=== PATIENT | female | born 1965 | race Two or more races ===

== ENCOUNTER 2016-11-14 05:58 | Inpatient (IN) | payer BC, OTHER ==
[2016-11-14] MEDS ORDERED: ALBUTEROL SULFATE 0.083% NEB 2.5 MG/3 ML AMPUL NEB ONE (06:03)
[2016-11-14] MEDS: ALBUTEROL SULFATE 0.083% NEB 2.5 MG/3 ML AMPUL NEB SCH ×2 (06:03→06:10)
[2016-11-14] MEDS ORDERED: IPRATROPIUM/ALBUTEROL 0.5-2.5 MG/3 ML AMPUL NEB ONE ×3 (06:03→07:44)
[2016-11-14] MEDS ORDERED: METHYLPREDNISOLONE INJ 125 MG/2 ML SDV ONE (06:07)
[2016-11-14] MEDS ORDERED: METHYLPREDNISOLONE INJ 125 MG/2 ML SDV IV ONE (06:17)
[2016-11-14] MEDS ORDERED: MAGNESIUM SULFATE/D5W 100 ML IV ONE ×2 (06:23→06:25)
[2016-11-14] MEDS ORDERED: NORMAL SALINE 1000 ML 1,000 ML IV ONE (06:23)
--- NOTE | 2016-11-14 06:23 | ER Document Report ---
ED Respiratory Problem - General Mode of Arrival: Ambulatory Information source: Patient TRAVEL OUTSIDE OF THE [place] IN LAST 30 DAYS: No - HPI Patient complains to provider of: Asthma Onset: Yesterday - ~2100 Duration: Continuous, Worse/persistent Context: Hx asthma Cough: Productive Sputum amount: Small Sputum color: Yellow At home treatment: Bronchodilators Associated symptoms: Cough, Difficulty breathing, Short of breath, Wheezing. denies: Fever <HELADIO WELLS - Last Filed: 11/14/16 06:23> <CHRISTOPHER FERGUSON - Last Filed: 11/14/16 07:48> - General Chief Complaint: Asthma Exacerbation Stated Complaint: DIFFICULTY BREATHING Notes: Patient is a 51-year-old female presenting to the emergency department with concerns of difficulty breathing associated with her asthma onset last night at approximately 2100. Patient states it started out with a cough, and she felt like she was coming down with a cold virus. Patient took over the counter cough medication at that point in time. Patient states the cough was productive with yellow phlegm, but denies any fever or other symptoms. Patient states that she takes albuterol through an inhaler as well as a nebulizer, and denies taking any other regular medications. (HELADIO WELLS) - Related Data Allergies/Adverse Reactions: No Known Allergies Allergy (Verified 11/14/16 06:08) Past Medical History - Social History Smoking Status: Unknown if Ever Smoked Family History: Reviewed & Not Pertinent, Other - asthma, Pulmonary Medical History: Reports: Hx Asthma Denies: Hx Tuberculosis Endocrine Medical History: Reports: Hx Hyperthyroidism Past Surgical History: Reports: Hx Abdominal Surgery - UMBILICAL HERNIA REPAIR, Hx Umbilical Hernia - Immunizations Immunizations up to date: Yes Hx Diphtheria, Pertussis, Tetanus Vaccination: Yes Hx Pneumococcal Vaccination: 03/25/14 <HELADIO WELLS - Last Filed: 11/14/16 06:23> Review of Systems - Review of Systems Constitutional: No symptoms reported EENT: No symptoms reported Cardiovascular: No symptoms reported Respiratory: See HPI, Cough, Short of breath, Wheezing Gastrointestinal: No symptoms reported Genitourinary: No symptoms reported Female Genitourinary: No symptoms reported Musculoskeletal: No symptoms reported Skin: No symptoms reported Hematologic/Lymphatic: No symptoms reported Neurological/Psychological: No symptoms reported -: Yes All other systems reviewed and negative <HELADIO WELLS - Last Filed: 11/14/16 06:23> Physical Exam - Vital signs Interpretation: Hypertensive, Tachycardic, Hypoxic, Tachypneic - General General appearance: Alert In distress: Moderate - HEENT Head: Normocephalic, Atraumatic Eyes: Normal Pupils: PERRL - Respiratory Respiratory status: Respiratory distress, Labored, Pursed lip breathing, Retractions, Tachypnea Chest status: Nontender Breath sounds: Wheezing - Diffuse expiratory wheezes - Cardiovascular Rhythm: Tachycardia Heart sounds: Normal auscultation Murmur: No - Abdominal Inspection: Normal Distension: No distension Bowel sounds: Normal Tenderness: Nontender Organomegaly: No organomegaly - Back Back: Normal, Nontender - Extremities General upper extremity: Normal inspection, Nontender General lower extremity: Normal inspection, Nontender - Neurological Neuro grossly intact: Yes Cognition: Normal [place] Coma Scale Eye Opening: Spontaneous [place] Coma Scale Verbal: Oriented [place] Coma Scale Motor: Obeys Commands Aimee Coma Scale Total: 15 - Psychological Associated symptoms: Normal affect, Normal mood - Skin Skin Temperature: Warm Skin Moisture: Dry Skin Color: Normal <HELADIO WELLS - Last Filed: 11/14/16 06:23> Course - Laboratory Result Diagrams: 11/14/16 06:14 11/14/16 06:14 - Diagnostic Test Radiology reviewed: Image reviewed, Reports reviewed - NAD - Consults Dr. Shankar Time consulted: 07:45 Consulted provider: will come to ER <CHRISTOPHER FERGUSON - Last Filed: 11/14/16 07:48> - Vital Signs Vital signs: Temp Pulse Resp BP Pulse Ox 131 H 19 149/93 H 97 11/14/16 05:59 11/14/16 06:23 11/14/16 06:23 11/14/16 06:23 (HELADIO WELLS) (CHRISTOPHER FERGUSON) - Laboratory Laboratory results interpreted by me: 11/14/16 06:14 Sodium 145.7 H Chloride 109 H (CHRISTOPHER FERGUSON) Discharge <HELADIO WELLS - Last Filed: 11/14/16 06:23> - Discharge Admitting Provider: Hospitalist Unit Admitted: Telemetry <CHRISTOPHER FERGUSON - Last Filed: 11/14/16 07:48> - Discharge Clinical Impression: Asthmatic bronchitis Qualifiers: Asthma severity: severe persistent Asthma complication type: with status asthmaticus Qualified Code(s): J45.52 - Severe persistent asthma with status asthmaticus Condition: Good Disposition: ADMITTED INPATIENT Scribe Documentation - Scribe Written by Scribe:: Heladio Wells 11/14/2016 0623 acting as scribe for :: Nickolas <HELADIO WELLS - Last Filed: 11/14/16 06:23>
[2016-11-14] MEDS ORDERED: RACEPINEPHRINE HCL 2.25% NEB 0.5 ML AMPUL NEB ONE (06:24)
[2016-11-14 06:28] LABS: ABSOLUTE EOSINOPHILS # (AUTO) 0.1 10^3/uL (0.0-0.6); ABSOLUTE LYMPHOCYTES (AUTO) 1.8 10^3/uL (0.5-4.7); ABSOLUTE MONOCYTES (AUTO) 0.5 10^3/uL (0.1-1.4); ABSOLUTE NEUT (AUTO) 6.9 10^3/uL (1.7-8.2); BASOPHILS % (AUTO) 0.2 % (0-2); EOSINOPHILS % (AUTO) 1.5 % (0-6); HEMOGLOBIN 14.1 g/dL (12.0-15.5); HGB HCT DIFFERENCE -0.7; LYMPHOCYTES % (AUTO) 18.9 % (13-45); MEAN CORPUSCULAR HEMOGLOBIN 31.6 pg (27.0-33.4); MEAN CORPUSCULAR HGB CONC 32.8 g/dL (32.0-36.0); MEAN CORPUSCULAR VOLUME 96 fl (80-97); MONOCYTES % (AUTO) 4.9 % (3-13); RED BLOOD COUNT 4.47 10^6/uL (3.72-5.28); RED CELL DISTRIBUTION WIDTH 13.2 % (11.5-14.0); SEGMENTED NEUTROPHILS % (AUTO) 74.5 % (42-78); WHITE BLOOD COUNT 9.3 10^3/uL (4.0-10.5)
[2016-11-14 06:43] LABS: ALANINE AMINOTRANSFERASE 21 U/L (9-52); ALBUMIN 4.5 g/dL (3.5-5.0); ALKALINE PHOSPHATASE 84 U/L (38-126); ANION GAP 12 (5-19); ASPARTATE AMINO TRANSFERASE 27 U/L (14-36); BILIRUBIN,TOTAL 0.5 mg/dL (0.2-1.3); BLOOD UREA NITROGEN 12 mg/dL (7-20); CALCIUM 9.1 mg/dL (8.4-10.2); CARBON DIOXIDE 25 mmol/L (22-30); CHLORIDE 109 mmol/L (98-107); CREATININE RESULT 0.54 mg/dL (0.52-1.25); GLUCOSE 101 mg/dL (75-110); POTASSIUM 4.1 mmol/L (3.6-5.0); SODIUM 145.7 mmol/L (137-145); TOTAL PROTEIN 7.3 g/dL (6.3-8.2)
[2016-11-14] MEDS ORDERED: ACETAMINOPHEN 325 MG TABLET PO PRN (07:51)
[2016-11-14] MEDS: NORMAL SALINE 1000 ML 1,000 ML IV PRN ×2 (08:33→17:21)
[2016-11-14] MEDS: IPRATROPIUM/ALBUTEROL 0.5-2.5 MG/3 ML AMPUL NEB SCH ×4 (08:54→20:09)
[2016-11-14] MEDS: GUAIFENESIN 600 MG TABLET.SA PO SCH ×2 (09:58→23:10)
[2016-11-14] MEDS: FAMOTIDINE 20 MG TABLET PO SCH ×2 (09:59→23:10)
[2016-11-14] MEDS ORDERED: BECLOMETHASONE DIPROPIONATE IH SCH (10:00)
[2016-11-14] MEDS: LEVOFLOXACIN 750 MG/D5W RTU 150 ML IV SCH (10:03)
[2016-11-14] MEDS: METHYLPREDNISOLONE INJ 125 MG/2 ML SDV IV SCH ×3 (11:10→23:14)
[2016-11-14] MEDS ORDERED: INFLUENZA ADLT QUAD (36MOS+) 2016-17 VAC 0.5 ML SYR IM PRN (13:49)
--- NOTE | 2016-11-14 14:05 | PDOC H&P ---
History of Present Illness Admission Date/PCP: 11/14/16 07:51 Patient complains of: Shortness of breath and wheezing History of Present Illness: JAROD MOON is a 51 year old female with history of moderate persistent asthma, who presented on [facility]'s ED earlier this morning with increasing shortness of breath, cough and severe wheezing. Patient states she began coughing last evening around 9 PM, which was accompanied by worsening wheezing and body aches. Patient states she used her rescue inhaler several times without improvement. Patient states she still took Mucinex and Robitussin cough syrup prior to going to bed last night. She states she thought she was coming down with an upper respiratory infection. She was awakened at 3 am by increasing shortness of breath, dyspnea and severe wheezing. She therefore drove herself to the ER. She states she has been using her inhaler and singulair as directed. Her daughter has recently gotten a cat. Past Medical History Medical History: None Pulmonary Medical History: Reports: Asthma Denies: Tuberculosis EENT Medical History: Reports: Other - asthma Neurological Medical History: Reports: None Endocrine Medical History: Reports: Hyperthyroidism Malignancy Medical History: Reports: None GI Medical History: Reports: None Skin Medical History: Reports: None Psychiatric Medical History: Reports: None Denies: Depression Traumatic Medical History: Reports: None Hematology: Reports: None Infectious Medical History: Reports: None Social History Information Source: Patient Lives with: Family Smoking Status: Never Smoker Frequency of Alcohol Use: Social Hx Recreational Drug Use: No Hx Prescription Drug Abuse: No - Advance Directive Resuscitation Status: Full Code Family History Family History: Hypertension, Other - asthma, Parental Family History Reviewed: Yes Children Family History Reviewed: Yes Sibling(s) Family History Reviewed.: Yes Medication/Allergy Home Medications: Albuterol Sulfate [Ventolin Hfa] 2 puff IN Q4HP PRN 11/05/15 Montelukast Sodium 10 mg PO QHS #30 tablet 11/07/15 Albuterol Sulfate [Albuterol Sulfate 2.5mg/3 mL] 2.5 mg IH DAILY 11/14/16 Allergies/Adverse Reactions: No Known Allergies Allergy (Verified 11/14/16 06:08) Review of Systems Constitutional: ABSENT: chills, fever(s), headache(s), weight gain, weight loss Eyes: ABSENT: visual disturbances Ears: ABSENT: hearing changes Cardiovascular: ABSENT: chest pain, dyspnea on exertion, edema, orthropnea, palpitations Respiratory: PRESENT: cough, dyspnea, other - severe wheezing Gastrointestinal: ABSENT: abdominal pain, constipation, diarrhea, hematemesis, hematochezia, nausea, vomiting Genitourinary: ABSENT: dysuria, hematuria Musculoskeletal: ABSENT: joint swelling Integumentary: ABSENT: rash, wounds Neurological: ABSENT: abnormal gait, abnormal speech, confusion, dizziness, focal weakness, syncope Psychiatric: ABSENT: anxiety, depression, homidical ideation, suicidal ideation Endocrine: ABSENT: cold intolerance, heat intolerance, polydipsia, polyuria Hematologic/Lymphatic: ABSENT: easy bleeding, easy bruising Physical Exam Vital Signs: Temp Pulse Resp BP Pulse Ox 97.8 F 98 20 120/71 96 11/14/16 12:39 11/14/16 13:00 11/14/16 13:00 11/14/16 12:39 11/14/16 13:00 General appearance: PRESENT: no acute distress, well-developed, well-nourished Head exam: PRESENT: atraumatic, normocephalic Eye exam: PRESENT: conjunctiva pink, EOMI, PERRLA. ABSENT: scleral icterus Ear exam: PRESENT: normal external ear exam Mouth exam: PRESENT: moist, tongue midline Neck exam: ABSENT: carotid bruit, JVD, lymphadenopathy, thyromegaly Respiratory exam: PRESENT: prolonged expiratory phas, symmetrical, unlabored, wheezes Cardiovascular exam: PRESENT: RRR. ABSENT: diastolic murmur, rubs, systolic murmur Pulses: PRESENT: normal dorsalis pedis pul Vascular exam: PRESENT: normal capillary refill GI/Abdominal exam: PRESENT: normal bowel sounds, soft. ABSENT: distended, guarding, mass, organolmegaly, rebound, tenderness Rectal exam: PRESENT: deferred Extremities exam: PRESENT: full ROM. ABSENT: calf tenderness, clubbing, pedal edema Neurological exam: PRESENT: alert, awake, oriented to person, oriented to place , oriented to time, oriented to situation, CN II-XII grossly intact. ABSENT: motor sensory deficit Psychiatric exam: PRESENT: appropriate affect, normal mood. ABSENT: homicidal ideation, suicidal ideation Skin exam: PRESENT: dry, intact, warm. ABSENT: cyanosis, rash Results Impressions: Chest X-Ray 01/20/17 06:17 IMPRESSION: NO ACUTE RADIOGRAPHIC FINDING IN THE CHEST. Assessment & Plan - Diagnosis (1) Asthma exacerbation Is this a current diagnosis for this admission?: YesPlan: IV steroids, nebulizers and IV magnesium. (2) Seasonal allergies Qualifiers: Allergic rhinitis trigger: unspecified Qualified Code(s): J30.2 - Other seasonal allergic rhinitis Is this a current diagnosis for this admission?: YesPlan: Continue Singulair (3) Acute bronchitis due to Rhinovirus Is this a current diagnosis for this admission?: YesPlan: Continue nebulizers, IV steroids and mucinex - Time Time Spent: 50 to 70 Minutes Critical Time spent with patient: 25-34 minutes Medications reviewed and adjusted accordingly: Yes Anticipated discharge: Home
[2016-11-14 14:13] LABS: ARTERIAL BLOOD BASE EXCESS -2.1 mmol/L
[2016-11-14] MEDS ORDERED: BUDESONIDE NEB 0.5 MG/2 ML AMPUL NEB PRN (17:24)
[2016-11-14] MEDS: BUDESONIDE NEB 0.5 MG/2 ML AMPUL NEB SCH (20:08)
[2016-11-14] MEDS: MONTELUKAST SODIUM 10 MG TABLET PO SCH (23:10)
[2016-11-15] MEDS: IPRATROPIUM/ALBUTEROL 0.5-2.5 MG/3 ML AMPUL NEB PRN (04:02)
[2016-11-15 04:57] LABS: HEMATOCRIT 39.5 % (36.0-47.0); HEMOGLOBIN 12.6 g/dL (12.0-15.5); HGB HCT DIFFERENCE -1.7; MEAN CORPUSCULAR HEMOGLOBIN 30.9 pg (27.0-33.4); MEAN CORPUSCULAR HGB CONC 31.9 g/dL (32.0-36.0); MEAN CORPUSCULAR VOLUME 97 fl (80-97); RED BLOOD COUNT 4.07 10^6/uL (3.72-5.28); RED CELL DISTRIBUTION WIDTH 13.7 % (11.5-14.0); WHITE BLOOD COUNT 14.4 10^3/uL (4.0-10.5)
[2016-11-15 05:14] LABS: ALANINE AMINOTRANSFERASE 21 U/L (9-52); ALKALINE PHOSPHATASE 74 U/L (38-126); ANION GAP 12 (5-19); ASPARTATE AMINO TRANSFERASE 19 U/L (14-36); BILIRUBIN,TOTAL 0.4 mg/dL (0.2-1.3); BLOOD UREA NITROGEN 9 mg/dL (7-20); CALCIUM 9.1 mg/dL (8.4-10.2); CARBON DIOXIDE 21 mmol/L (22-30); CHLORIDE 109 mmol/L (98-107); CREATININE RESULT 0.45 mg/dL (0.52-1.25); GLUCOSE 151 mg/dL (75-110); POTASSIUM 4.4 mmol/L (3.6-5.0); SODIUM 141.6 mmol/L (137-145); TOTAL PROTEIN 6.7 g/dL (6.3-8.2)
[2016-11-15] MEDS: METHYLPREDNISOLONE INJ 125 MG/2 ML SDV IV SCH ×4 (05:44→23:11)
[2016-11-15] MEDS: NORMAL SALINE 1000 ML 1,000 ML IV PRN (05:46)
[2016-11-15] MEDS: IPRATROPIUM/ALBUTEROL 0.5-2.5 MG/3 ML AMPUL NEB SCH ×4 (07:57→20:38)
[2016-11-15] MEDS: BUDESONIDE NEB 0.5 MG/2 ML AMPUL NEB SCH ×2 (07:57→20:38)
[2016-11-15] MEDS ORDERED: METHIMAZOLE PO SCH (10:00)
[2016-11-15] MEDS: LEVOFLOXACIN 750 MG/D5W RTU 150 ML IV SCH (10:10)
[2016-11-15] MEDS: GUAIFENESIN 600 MG TABLET.SA PO SCH ×2 (10:11→21:16)
[2016-11-15] MEDS: FAMOTIDINE 20 MG TABLET PO SCH ×2 (10:11→21:17)
[2016-11-15] MEDS: MONTELUKAST SODIUM 10 MG TABLET PO SCH (21:16)
[2016-11-16] MEDS: IPRATROPIUM/ALBUTEROL 0.5-2.5 MG/3 ML AMPUL NEB PRN (04:14)
[2016-11-16] MEDS: METHYLPREDNISOLONE INJ 125 MG/2 ML SDV IV SCH ×4 (05:18→23:47)
[2016-11-16] MEDS: BUDESONIDE NEB 0.5 MG/2 ML AMPUL NEB SCH ×2 (08:35→20:32)
[2016-11-16] MEDS: IPRATROPIUM/ALBUTEROL 0.5-2.5 MG/3 ML AMPUL NEB SCH ×4 (08:35→20:32)
[2016-11-16] MEDS ORDERED: HYDROCODONE BIT/HOMATROPINE SYRUP 5 ML UDCUP PO PRN (09:16)
[2016-11-16] MEDS: GUAIFENESIN 600 MG TABLET.SA PO SCH ×2 (09:16→21:30)
[2016-11-16] MEDS: FAMOTIDINE 20 MG TABLET PO SCH ×2 (09:16→21:30)
[2016-11-16] MEDS: LEVOFLOXACIN 750 MG/D5W RTU 150 ML IV SCH (09:17)
--- NOTE | 2016-11-16 10:35 | PDOC PROGRESS REPORT ---
Subjective Progress Note for:: 11/15/16 Subjective:: Patient is seen on morning rounds. She is resting in bed. She continues to have cough and significant wheezing, but is improved from admission. She denies any headache, dizziness or dyspnea. She denies any nausea, vomiting or abdominal pain. She denies any arthralgias, myalgias or back pain. She denies any fevers or chills. Physical Exam Vital Signs: Temp Pulse Resp BP Pulse Ox 98.3 F 71 18 110/51 L 95 11/16/16 07:38 11/16/16 08:35 11/16/16 08:35 11/16/16 07:38 11/16/16 08:35 Intake & Output 11/15/16 11/16/16 11/17/16 06:59 06:59 06:59 Intake Total 2863 4750 Output Total 2300 Balance 2863 2450 Weight 84.5 kg 86.3 kg General appearance: PRESENT: no acute distress, well-developed, well-nourished Head exam: PRESENT: atraumatic, normocephalic Eye exam: PRESENT: conjunctival injection Ear exam: PRESENT: normal external ear exam Mouth exam: PRESENT: moist, tongue midline Respiratory exam: PRESENT: prolonged expiratory phas, symmetrical, unlabored, wheezes Cardiovascular exam: PRESENT: RRR. ABSENT: diastolic murmur, rubs, systolic murmur Pulses: PRESENT: normal dorsalis pedis pul Vascular exam: PRESENT: normal capillary refill GI/Abdominal exam: PRESENT: normal bowel sounds, soft. ABSENT: distended, guarding, mass, organolmegaly, rebound, tenderness Rectal exam: PRESENT: deferred Extremities exam: PRESENT: full ROM. ABSENT: calf tenderness, clubbing, pedal edema Neurological exam: PRESENT: alert, awake, oriented to person, oriented to place , oriented to time, oriented to situation, CN II-XII grossly intact. ABSENT: motor sensory deficit Psychiatric exam: PRESENT: appropriate affect, normal mood. ABSENT: homicidal ideation, suicidal ideation Skin exam: PRESENT: dry, intact, warm. ABSENT: cyanosis, rash Results Laboratory Results: 11/15/16 04:39 11/15/16 04:39 Impressions: Chest X-Ray 11/14/16 06:17 IMPRESSION: NO ACUTE RADIOGRAPHIC FINDING IN THE CHEST. Assessment & Plan - Diagnosis (1) Asthma exacerbation Is this a current diagnosis for this admission?: YesPlan: IV steroids, nebulizers and IV magnesium. (2) Seasonal allergies Qualifiers: Allergic rhinitis trigger: unspecified Qualified Code(s): J30.2 - Other seasonal allergic rhinitis Is this a current diagnosis for this admission?: YesPlan: Continue Singulair (3) Acute bronchitis due to Rhinovirus Is this a current diagnosis for this admission?: YesPlan: Continue nebulizers, IV steroids and mucinex - Time Time Spent with patient: 25-34 minutes Critical Time spent with patient: 15-24 minutes Medications reviewed and adjusted accordingly: Yes Anticipated discharge: Home
--- NOTE | 2016-11-16 10:38 | PDOC PROGRESS REPORT ---
Subjective Progress Note for:: 11/16/16 Subjective:: Patient is seen on morning rounds. She is resting in bed. She continues to have a mostly nonproductive cough, wheezing has improved and chest is not as tight. She denies any headache, dizziness or dyspnea. She denies any nausea, vomiting or abdominal pain. She denies any arthralgias, myalgias or back pain. She denies any fevers or chills. Physical Exam Vital Signs: Temp Pulse Resp BP Pulse Ox 98.3 F 71 18 110/51 L 95 11/16/16 07:38 11/16/16 08:35 11/16/16 08:35 11/16/16 07:38 11/16/16 08:35 Intake & Output 11/15/16 11/16/16 11/17/16 06:59 06:59 06:59 Intake Total 2863 4750 Output Total 2300 Balance 2863 2450 Weight 84.5 kg 86.3 kg General appearance: PRESENT: no acute distress, well-developed, well-nourished Head exam: PRESENT: atraumatic, normocephalic Eye exam: PRESENT: conjunctiva pink, EOMI, PERRLA. ABSENT: scleral icterus Ear exam: PRESENT: normal external ear exam Mouth exam: PRESENT: moist, tongue midline Neck exam: ABSENT: carotid bruit, JVD, lymphadenopathy, thyromegaly Respiratory exam: PRESENT: symmetrical, unlabored - Improved aeration, wheezes, other. ABSENT: rales, rhonchi Cardiovascular exam: PRESENT: RRR. ABSENT: diastolic murmur, rubs, systolic murmur Pulses: PRESENT: normal dorsalis pedis pul Vascular exam: PRESENT: normal capillary refill GI/Abdominal exam: PRESENT: normal bowel sounds, soft. ABSENT: distended, guarding, mass, organolmegaly, rebound, tenderness Rectal exam: PRESENT: deferred Extremities exam: PRESENT: full ROM. ABSENT: calf tenderness, clubbing, pedal edema Neurological exam: PRESENT: alert, awake, oriented to person, oriented to place , oriented to time, oriented to situation, CN II-XII grossly intact. ABSENT: motor sensory deficit Psychiatric exam: PRESENT: appropriate affect, normal mood. ABSENT: homicidal ideation, suicidal ideation Skin exam: PRESENT: dry, intact, warm. ABSENT: cyanosis, rash Results Laboratory Results: 11/15/16 04:39 11/15/16 04:39 Impressions: Chest X-Ray 11/14/16 06:17 IMPRESSION: NO ACUTE RADIOGRAPHIC FINDING IN THE CHEST. Assessment & Plan - Diagnosis (1) Asthma exacerbation Is this a current diagnosis for this admission?: YesPlan: IV steroids, nebulizers and IV magnesium. (2) Seasonal allergies Qualifiers: Allergic rhinitis trigger: unspecified Qualified Code(s): J30.2 - Other seasonal allergic rhinitis Is this a current diagnosis for this admission?: YesPlan: Continue Singulair (3) Acute bronchitis due to Rhinovirus Is this a current diagnosis for this admission?: YesPlan: Continue nebulizers, IV steroids and mucinex - Time Time Spent with patient: 15-24 minutes Medications reviewed and adjusted accordingly: Yes Anticipated discharge: Home
[2016-11-16] MEDS ORDERED: HYDROCODONE BIT/HOMATROPINE 5-1.5 MG TABLET PO PRN (11:28)
[2016-11-16] MEDS: MONTELUKAST SODIUM 10 MG TABLET PO SCH (21:30)
[2016-11-17] MEDS: METHYLPREDNISOLONE INJ 125 MG/2 ML SDV IV SCH (05:39)
[2016-11-17] MEDS: IPRATROPIUM/ALBUTEROL 0.5-2.5 MG/3 ML AMPUL NEB SCH ×2 (08:37→12:57)
[2016-11-17] MEDS: BUDESONIDE NEB 0.5 MG/2 ML AMPUL NEB SCH (08:37)
[2016-11-17] MEDS ORDERED: BUDESONIDE/FORMOTEROL 160-4.5 MCG 60 PUFF/6 GM MDI IH SCH (10:00)
[2016-11-17] MEDS ORDERED: PREDNISONE 20 MG TABLET PO SCH (10:00)
[2016-11-17] MEDS: LEVOFLOXACIN 750 MG/D5W RTU 150 ML IV SCH (10:19)
[2016-11-17] MEDS: FAMOTIDINE 20 MG TABLET PO SCH (10:21)
[2016-11-17] MEDS: GUAIFENESIN 600 MG TABLET.SA PO SCH (10:21)
[2016-11-17 12:51] VITALS: BP 113/59
--- NOTE | 2016-11-17 13:54 | PDOC DISCHARGE SUMMARY ---
General - Admit/Disc Date/PCP Admission Date/Primary Care Provider: 11/14/16 07:51 Discharge Date: 11/17/16 - Discharge Diagnosis (1) Asthma exacerbation Is this a current diagnosis for this admission?: YesSummary: Patient will continue with steroid inhaler bid. Oral prednisone taper. Continue Singulair. Levaquin for 5 more days (2) Seasonal allergies Is this a current diagnosis for this admission?: YesSummary: Continue Singulair and Zyrtec. Avoid cat dander (3) Asthmatic bronchitis Is this a current diagnosis for this admission?: YesSummary: Patient's symptoms are markedly improved. Wheezing mostly has resolved - Additional Information Resuscitation Status: Full Code Discharge Diet: Regular Discharge Activity: Activity As Tolerated, Balance Activity w/Rest Home Medications: Albuterol Sulfate [Ventolin Hfa] 2 puff IN Q4HP PRN 11/05/15 Montelukast Sodium 10 mg PO QHS #30 tablet 11/07/15 Acetaminophen [Tylenol 325 mg Tablet] 650 mg PO Q4HP PRN tablet 11/17/16 Albuterol Sulfate [Albuterol Sulfate 2.5mg/3 mL] 2.5 mg IH DAILY #30 vial Budesonide/Formoterol Fumarate [Symbicort HFA 160-4.5 mcg Inhaler 6 gm] 2 puff IH Q12 #1 inhaler 11/17/16 Hydrocodone Bit/Homatropine [Hycodan 5-1.5 mg Tablet] 1 tab PO Q4HP PRN #20 tablet 11/17/16 Prednisone [Deltasone 20 mg Tablet] 20 mg PO ASDIR PRN #10 tablet 11/17/16 History of Present Illness History of Present Illness: JAROD MOON is a 51 year old female with history of moderate persistent asthma, who presented on [facility]'s ED earlier this morning with increasing shortness of breath, cough and severe wheezing. Patient states she began coughing last evening around 9 PM, which was accompanied by worsening wheezing and body aches. Patient states she used her rescue inhaler several times without improvement. Patient states she still took Mucinex and Robitussin cough syrup prior to going to bed last night. She states she thought she was coming down with an upper respiratory infection. She was awakened at 3 am by increasing shortness of breath, dyspnea and severe wheezing. She therefore drove herself to the ER. She states she has been using her inhaler and singulair as directed. Her daughter has recently gotten a cat. Hospital Course Hospital Course: Patient was admitted to [facility] on telemetry. She was given nebulizer treatments every 4hrs, along with IV steroids and broad spectrum antibiotics. Her wheezing gradually improved over the last 2 days. Her tachycardia and cough have also resolved. She is no longer hypoxic. She feels ready for discharge home. Discussed need to avoid cats. Physical Exam Vital Signs: Temp Pulse Resp BP Pulse Ox 98.7 F 65 18 113/59 L 92 11/17/16 12:49 11/17/16 12:49 11/17/16 12:49 11/17/16 12:49 11/17/16 12:49 Intake & Output 11/16/16 11/17/16 11/18/16 06:59 06:59 06:59 Intake Total 4750 3395 Output Total 2300 4000 Balance 2450 -605 Weight 86.3 kg 85.7 kg General appearance: PRESENT: no acute distress, well-developed, well-nourished Head exam: PRESENT: atraumatic, normocephalic Eye exam: PRESENT: conjunctiva pink, EOMI, PERRLA. ABSENT: scleral icterus Ear exam: PRESENT: normal external ear exam Mouth exam: PRESENT: moist, tongue midline Neck exam: ABSENT: carotid bruit, JVD, lymphadenopathy, thyromegaly Respiratory exam: PRESENT: wheezes - few expiratory wheezes in upper lobes. ABSENT: rales, rhonchi Cardiovascular exam: PRESENT: RRR. ABSENT: diastolic murmur, rubs, systolic murmur Pulses: PRESENT: normal dorsalis pedis pul Vascular exam: PRESENT: normal capillary refill GI/Abdominal exam: PRESENT: normal bowel sounds, soft. ABSENT: distended, guarding, mass, organolmegaly, rebound, tenderness Rectal exam: PRESENT: deferred Extremities exam: PRESENT: full ROM. ABSENT: calf tenderness, clubbing, pedal edema Neurological exam: PRESENT: alert, awake, oriented to person, oriented to place , oriented to time, oriented to situation, CN II-XII grossly intact. ABSENT: motor sensory deficit Psychiatric exam: PRESENT: appropriate affect, normal mood. ABSENT: homicidal ideation, suicidal ideation Skin exam: PRESENT: dry, intact, warm. ABSENT: cyanosis, rash Results Laboratory Results: 11/15/16 04:39 11/15/16 04:39 11/14/16 20:35 Sputum Gram Stain - Final 11/14/16 20:35 Sputum Sputum Culture - Final NORMAL SEAN Impressions: Chest X-Ray 11/14/16 06:17 IMPRESSION: NO ACUTE RADIOGRAPHIC FINDING IN THE CHEST. Qualifiers PATEINT BEING DISCHARGED WITH ANY OF THE FOLLOWING DIAGNOSIS?: No Plan Discharge Plan: Home with family. Follow up with primary care provider in one week Time Spent: Less than 30 Minutes
== END 2016-11-17 13:51 | disposition home or self-care (01) | DRG 203 ==
LOC: ER 05:58 → EH 07:51 → UNDOADMIN 08:20 → 3W 13:25
PROVIDERS: ADMIT Family Medicine; ATTEND Family Medicine
PROC: 3E0F73Z Introduction of Anti-inflammatory into Respiratory Tract, Via Natural or Artificial Opening (ICD-10-PCS; principal; 2016-11-14)
PROC: 3E0234Z Introduction of Serum, Toxoid and Vaccine into Muscle, Percutaneous Approach (ICD-10-PCS; 2016-11-17)
DX: J45.42 Moderate persistent asthma with status asthmaticus (principal); J20.6 Acute bronchitis due to rhinovirus; E05.90 Thyrotoxicosis, unspecified without thyrotoxic crisis or storm; Z23 Encounter for immunization; Z79.899 Other long term (current) drug therapy; Z82.5 Family history of asthma and other chronic lower respiratory diseases; Z82.49 Family history of ischemic heart disease and other diseases of the circulatory system
CPT/HCPCS: 36415; 36600; 71010; 80053; 82803; 85025; 85027; 87070; 87205; 90686; 94640; 94799; 96361; 96374; 96375; 96376; 99285; J1956; J2930; J3475; J3490; J7030; J7512; J7620

== ENCOUNTER 2017-06-18 16:29 | Emergency (ER) | payer MEDICAID ==
[2017-06-18] MEDS ORDERED: ASPIRIN 81 MG TABLET, CHEWABLE PO ONE (17:06)
[2017-06-18] MEDS ORDERED: IPRATROPIUM/ALBUTEROL 0.5-2.5 MG/3 ML AMPUL NEB ONE (17:06)
--- NOTE | 2017-06-18 17:07 | ER Document Report ---
ED Medical Screen (RME) - General Chief Complaint: Chest Pain Stated Complaint: CHEST PAIN Mode of Arrival: Ambulatory Information source: Patient Notes: 51-year-old female history of hyperthyroidism asthma presents with complaints of wheezing shortness of breath chest pain over the past month. Patient denies any fevers or chills I have greeted and performed a rapid initial assessment of this patient. A comprehensive ED assessment and evaluation of the patient, analysis of test results and completion of the medical decision making process will be conducted by additional ED providers. PHYSICAL EXAMINATION: GENERAL: Well-appearing, well-nourished and in no acute distress. HEAD: Atraumatic, normocephalic. EYES: Pupils equal round extraocular movements intact, conjunctiva are normal. ENT: Nares patent NECK: Normal range of motion LUNGS: Faint inspiratory wheezing all throughout Musculoskeletal: Normal range of motion NEUROLOGICAL: Normal speech, normal gait. PSYCH: Normal mood, normal affect. SKIN: Warm, Dry, normal turgor, no rashes or lesions noted. TRAVEL OUTSIDE OF THE [place] IN LAST 30 DAYS: No - Related Data Allergies/Adverse Reactions: No Known Allergies Allergy (Verified 11/14/16 06:08) Past Medical History - Social History Chew tobacco use (# tins/day): No Frequency of alcohol use: Occasional Drug Abuse: None Pulmonary Medical History: Reports: Hx Asthma Denies: Hx Tuberculosis Endocrine Medical History: Reports: Hx Hyperthyroidism Renal/ Medical History: Denies: Hx Peritoneal Dialysis Psychiatric Medical History: Denies: Hx Depression Past Surgical History: Reports: Hx Abdominal Surgery - UMBILICAL HERNIA REPAIR, Hx Umbilical Hernia - Immunizations Immunizations up to date: Yes Hx Diphtheria, Pertussis, Tetanus Vaccination: Yes Physical Exam - Vital signs Vitals: Temp Pulse Resp BP Pulse Ox 98.8 F 104 H 22 H 146/21 H 95 06/18/17 16:42 06/18/17 16:42 06/18/17 16:42 06/18/17 16:42 06/18/17 16:42 Course - Vital Signs Vital signs: Temp Pulse Resp BP Pulse Ox 98.8 F 104 H 22 H 146/21 H 95 06/18/17 16:42 06/18/17 16:42 06/18/17 16:42 06/18/17 16:42 06/18/17 16:42
--- NOTE | 2017-06-18 17:55 | ER Document Report ---
ED Cardiac - General Chief Complaint: Chest Pain Stated Complaint: CHEST PAIN Time Seen by Provider: 06/18/17 17:07 Mode of Arrival: Ambulatory Notes: The patient is a 51-year-old female, past medical history hyperthyroidism, asthma, presents with chest pain for the past several hours and tingling down her left arm. She was diagnosed with hyperthyroidism and started on methimazole last week by her primary care physician Dr. Roca. She is also having a dry cough and she is feeling mildly short of breath. She denies nausea , vomiting, back pain, neck pain, headache, leg swelling, estrogen use, palpitations or fevers. TRAVEL OUTSIDE OF THE [place] IN LAST 30 DAYS: No - Related Data Allergies/Adverse Reactions: No Known Allergies Allergy (Verified 11/14/16 06:08) Past Medical History - General Information source: Patient - Social History Smoking Status: Never Smoker Chew tobacco use (# tins/day): No Frequency of alcohol use: Occasional Drug Abuse: None Family History: Hypertension, Other - asthma, Patient has suicidal ideation: No Patient has homicidal ideation: No Pulmonary Medical History: Reports: Hx Asthma Denies: Hx Tuberculosis Endocrine Medical History: Reports: Hx Hyperthyroidism Renal/ Medical History: Denies: Hx Peritoneal Dialysis Psychiatric Medical History: Denies: Hx Depression Past Surgical History: Reports: Hx Abdominal Surgery - UMBILICAL HERNIA REPAIR, Hx Umbilical Hernia - Immunizations Immunizations up to date: Yes Hx Diphtheria, Pertussis, Tetanus Vaccination: Yes Hx Pneumococcal Vaccination: 03/25/14 Review of Systems - Review of Systems Notes: REVIEW OF SYSTEMS: CONSTITUTIONAL: -fevers, -chills EENT: -eye pain, -difficulty swallowing, -nasal congestion CARDIOVASCULAR: +chest pain, -syncope. RESPIRATORY: +cough, +SOB GASTROINTESTINAL: -abdominal pain, -nausea, -vomiting, -diarrhea GENITOURINARY: -dysuria, -hematuria MUSCULOSKELETAL: -back pain, -neck pain SKIN: -rash or skin lesions. HEMATOLOGIC: -easy bruising or bleeding. LYMPHATIC: -swollen, enlarged glands. NEUROLOGICAL: -altered mental status or loss of consciousness, -headache, - neurologic symptoms PSYCHIATRIC: -anxiety, -depression. ALL OTHER SYSTEMS REVIEWED AND NEGATIVE. Physical Exam - Vital signs Vitals: Temp Pulse Resp BP Pulse Ox 98.8 F 104 H 22 H 146/21 H 95 06/18/17 16:42 06/18/17 16:42 06/18/17 16:42 06/18/17 16:42 06/18/17 16:42 - Notes Notes: PHYSICAL EXAMINATION: GENERAL: Well-appearing, well-nourished and in no acute distress. HEAD: Atraumatic, normocephalic. EYES: Pupils equal round and reactive to light, extraocular movements intact, sclera anicteric, conjunctiva are normal. ENT: nares patent, oropharynx clear without exudates. Moist mucous membranes. NECK: Normal range of motion, supple without lymphadenopathy LUNGS: No respiratory distress. Mild and expiratory wheezes. HEART: Regular rhythm, tachycardia ABDOMEN: Soft, nontender, normoactive bowel sounds. No guarding, no rebound. No masses appreciated. EXTREMITIES: Normal range of motion, no pitting or edema. No cyanosis. NEUROLOGICAL: Cranial nerves grossly intact. Normal speech, normal gait. Normal sensory and motor exams. PSYCH: Normal mood, normal affect. SKIN: Warm, Dry, normal turgor, no rashes or lesions noted. Course - Re-evaluation Re-evalutation: Pt has no clinical signs of thyroid storm. She is on methimazole and is following with her primary care physician. Chest x-ray does not show any acute changes in 2 sets of troponins are negative. Patient has diffuse ST elevation, but no reciprocal changes. HEART score is 2. She is low risk for PE, but could not PERC out due to tachycardia. Her d-dimer is negative, so PE is very unlikely and the risk of radiation for CTA outweighs the benefits. Suspect a component of pericarditis causing her symptoms. Instructed her to begin anti- inflammatories and follow-up with her primary care physician this week. - Vital Signs Vital signs: Temp Pulse Resp BP Pulse Ox 98.8 F 104 H 19 125/45 L 95 06/18/17 16:42 06/18/17 16:42 06/18/17 19:01 06/18/17 19:01 06/18/17 19:01 - Laboratory Result Diagrams: 06/18/17 17:40 06/18/17 17:40 Laboratory results interpreted by me: 06/18/17 06/18/17 06/18/17 17:40 17:40 17:40 Hgb 11.3 L Hct 33.7 L Creatinine 0.41 L TSH < 0.01 L - Diagnostic Test Radiology reviewed: Image reviewed, Reports reviewed Radiology results interpreted by me: CXR: NAD - EKG Interpretation by Me EKG shows normal: Sinus rhythm, [place], Intervals, QRS Complexes Rate: Tachycardia Additional EKG results interpreted by me: Diffuse ST elevations, no reciprocal changes Discharge - Discharge Clinical Impression: Chest pain Qualifiers: Chest pain type: unspecified Qualified Code(s): R07.9 - Chest pain, unspecified Condition: Stable Disposition: HOME, SELF-CARE Additional Instructions: CHEST PAIN OF UNCLEAR CAUSE: The exact cause of your chest pain isn't clear. Fortunately, there is no evidence of a dangerous medical condition. Further testing may be required to find the source of the pain. Most often, we find that this pain is coming from the chest wall -- the muscles or rib joints in the chest. But chest pain can come from the lung and lung lining, the esophagus, the heart valves or heart lining, and even the stomach or gallbladder. Rest. Eat lightly until the pain is gone. We may prescribe medicine for pain and inflammation. You should call the physician immediately if the pain radiates to the shoulder, jaw or arms; if you start to run a fever or develop a cough; or if you develop shortness of breath, or other new or alarming symptoms. NORMAL EXAM AND WORKUP: At this time, your examination and workup show no significant abnormality. No significant abnormal physical findings were noted. All laboratory, EKG, and imaging (x-ray, CT scans, ultrasound) studies that were ordered show no significant abnormality. Although your examination and all studies that were ordered showed no significant abnormal finding, there are no examinations and no studies that are 100% accurate. There is always the possibility that some abnormality could exist and not be detected with physical examination or within the limits and capabilities of laboratory and other studies. You should return or follow up as you were instructed on your visit today for further evaluation if your symptoms do not resolve. CHEST WALL PAIN: Your chest pain may be coming from the chest wall. This is often caused by straining the muscles or joints in the chest during physical activity, direct trauma, coughing, or vigorous vomiting. Persons with arthritis are especially prone to this type of pain, due to inflammation of the cartilage joints near the breast bone. Occasionally, no cause can be found. Rest from strenuous physical activity. This kind of chest pain is usually made worse by movement of the chest. Depending on the symptoms, we may prescribe medicine for pain, muscle relaxation, and antiinflammatory effects. If the pain is new, and seems to be due to muscle strain, cold packs can help. Otherwise, apply gentle warmth to the painful area for 15 minutes every hour or two. You should call contact the doctor immediately if things change. Further evaluation is needed if you develop a fever or cough, if the nature of the pain changes, or if you become short of breath. ANGINA EPISODE: Your physician has diagnosed the pain you experienced as an episode of angina. Angina occurs when a portion of the heart muscle temporarily lacks oxygen. It does not cause any permanent heart damage, but serves as a warning. Hospitalization is not necessary now. Evaluation of your cardiac condition , and medical therapy for angina will be necessary. It's important you be sure to keep all appointments and take medication exactly as prescribed. Angina is usually treated with a type of "nitrate" medication. This is available as ointment, pills, or sublingual (under the tongue) tablets. Depending on your clinical situation, other medications may be added to help control angina. These may include beta blockers or calcium blockers. If episodes of angina are occurring with increased frequency, or if chest pain lasts longer than 15 minutes or does not respond to nitroglycerin, you must seek emergency medical care immediately. FOLLOW-UP CARE: If you have been referred to a physician for follow-up care, call the physician s office for an appointment as you were instructed or within the next two days. If you experience worsening or a significant change in your symptoms, notify the physician immediately or return to the Emergency Department at any time for re-evaluation. Pericarditis You have a condition known as pericarditis. This is an inflammation in the sack surrounding the heart, called the pericardium. Often no cause can be identified. It is usually due to viral infection, but can be caused by tumors, heart attacks, tuberculosis, kidney disease, and other conditions. Your physician's examination has determined that hospitalization is not necessary. Pericarditis is treated with antiinflammatory medication. Typically, the symptoms will subside within a few days. Pain medication may be required. You should call the doctor if you develop increasing pain, shortness of breath, fever, lightheadedness or weakness, or swelling in the feet or ankles. Referrals: LISA ROCA, [Primary Care Provider] - Follow up as needed
[2017-06-18 18:01] LABS: ABSOLUTE EOSINOPHILS # (AUTO) 0.1 10^3/uL (0.0-0.6); ABSOLUTE LYMPHOCYTES (AUTO) 1.5 10^3/uL (0.5-4.7); ABSOLUTE MONOCYTES (AUTO) 0.4 10^3/uL (0.1-1.4); ABSOLUTE NEUT (AUTO) 2.2 10^3/uL (1.7-8.2); BASOPHILS % (AUTO) 0.2 % (0-2); EOSINOPHILS % (AUTO) 3.1 % (0-6); HEMATOCRIT 33.7 % (36.0-47.0); HEMOGLOBIN 11.3 g/dL (12.0-15.5); HGB HCT DIFFERENCE 0.2; LYMPHOCYTES % (AUTO) 35.3 % (13-45); MEAN CORPUSCULAR HEMOGLOBIN 29.9 pg (27.0-33.4); MEAN CORPUSCULAR HGB CONC 33.4 g/dL (32.0-36.0); MEAN CORPUSCULAR VOLUME 90 fl (80-97); MONOCYTES % (AUTO) 9.3 % (3-13); RED BLOOD COUNT 3.77 10^6/uL (3.72-5.28); RED CELL DISTRIBUTION WIDTH 12.4 % (11.5-14.0); SEGMENTED NEUTROPHILS % (AUTO) 52.1 % (42-78); WHITE BLOOD COUNT 4.2 10^3/uL (4.0-10.5)
--- NOTE | 2017-06-18 18:21 | RADIOLOGY REPORT (SQ) ---
EXAM DESCRIPTION: CHEST SINGLE VIEW COMPLETED DATE/TIME: 06/18/2017 5:29 pm REASON FOR STUDY: chest pain , asthma COMPARISON: 11/05/2015 EXAM PARAMETERS: NUMBER OF VIEWS: One view. TECHNIQUE: Single frontal radiographic view of the chest acquired. RADIATION DOSE: NA LIMITATIONS: None. FINDINGS: LUNGS AND PLEURA: No opacities, masses or pneumothorax. No pleural effusion. MEDIASTINUM AND HILAR STRUCTURES: No masses. Contour normal. HEART AND VASCULAR STRUCTURES: Heart normal in size. Normal vasculature. BONES: No acute findings. HARDWARE: None in the chest. OTHER: No other significant finding. IMPRESSION: NO ACUTE RADIOGRAPHIC FINDING IN THE CHEST. TECHNICAL DOCUMENTATION: JOB ID: [id number]
[2017-06-18 18:28] LABS: ALANINE AMINOTRANSFERASE 30 U/L (9-52); ALBUMIN 3.8 g/dL (3.5-5.0); ALKALINE PHOSPHATASE 77 U/L (38-126); ANION GAP 8 (5-19); ASPARTATE AMINO TRANSFERASE 28 U/L (14-36); BILIRUBIN,DIRECT 0.3 mg/dL (0.0-0.4); BILIRUBIN,TOTAL 0.3 mg/dL (0.2-1.3); BLOOD UREA NITROGEN 7 mg/dL (7-20); CALCIUM 9.7 mg/dL (8.4-10.2); CARBON DIOXIDE 28 mmol/L (22-30); CHLORIDE 104 mmol/L (98-107); CREATINE KINASE 40 U/L (30-135); CREATININE RESULT 0.41 mg/dL (0.52-1.25); GLUCOSE 93 mg/dL (75-110); POTASSIUM 4.5 mmol/L (3.6-5.0); SODIUM 139.5 mmol/L (137-145); TOTAL PROTEIN 6.3 g/dL (6.3-8.2)
[2017-06-18 18:39] LABS: CREATINE KINASE MB 1.19 ng/mL (<4.55)
[2017-06-18 18:40] LABS: TROPONIN I < 0.012 ng/mL
--- NOTE | 2017-06-18 21:23 | EKG REPORT ---
SEVERITY:- OTHERWISE NORMAL ECG - SINUS TACHYCARDIA ST ELEV, PROBABLE NORMAL EARLY REPOL PATTERN : Confirmed by: Gi Russo 18-Jun-2017 21:22:26
--- NOTE | 2017-06-18 21:23 | EKG REPORT ---
SEVERITY:- NORMAL ECG - SINUS RHYTHM : Confirmed by: Gi Russo 18-Jun-2017 21:22:20
[2017-06-18 21:41] VITALS: BP 128/89
== END 2017-06-18 21:30 | disposition home or self-care (01) ==
LOC: ER 16:29
DX: R07.9 Chest pain, unspecified (principal); E03.9 Hypothyroidism, unspecified; J45.909 Unspecified asthma, uncomplicated; M79.602 Pain in left arm
CPT/HCPCS: 93005; 99285; 36415; 82553; 82550; 84443; 85025; 80053; 84484; 85379; 71010; 93010; J7620

== ENCOUNTER 2018-08-06 09:42 | Emergency (ER) | payer SELFPAY ==
[2018-08-06] MEDS ORDERED: METHYLPREDNISOLONE INJ 125 MG/2 ML SDV IM ONE (10:00)
[2018-08-06] MEDS ORDERED: IPRATROPIUM/ALBUTEROL 0.5-2.5 MG/3 ML AMPUL NEB ONE (10:00)
--- NOTE | 2018-08-06 10:02 | ER Document Report ---
ED Medical Screen (RME) - General Chief Complaint: Breathing Difficulty Stated Complaint: DIFFICULTY BREATHING Time Seen by Provider: 08/06/18 10:00 Mode of Arrival: Wheelchair Information source: Patient TRAVEL OUTSIDE OF THE [place] 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 and had wheezing and SOB - Related Data Allergies/Adverse Reactions: No Known Allergies Allergy (Verified 08/06/18 09:43) Past Medical History - Social History Frequency of alcohol use: Rare Drug Abuse: None Pulmonary Medical History: Reports: Hx Asthma Denies: Hx Tuberculosis Endocrine Medical History: Reports: Hx Hyperthyroidism Renal/ Medical History: Denies: Hx Peritoneal Dialysis Psychiatric Medical History: Denies: Hx Depression Past Surgical History: Reports: Hx Abdominal Surgery - UMBILICAL HERNIA REPAIR, Hx Umbilical Hernia - Immunizations Immunizations up to date: Yes Hx Diphtheria, Pertussis, Tetanus Vaccination: Yes Doctor's Discharge - Discharge Referrals: LISA SONG DO [Primary Care Provider] - Follow up as needed
--- NOTE | 2018-08-06 10:48 | RADIOLOGY REPORT (SQ) ---
EXAM DESCRIPTION: CHEST 2 VIEWS COMPLETED DATE/TIME: 08/06/2018 10:29 am REASON FOR STUDY: sob; wheezing COMPARISON: Chest films 06/18/2017, 11/14/2016, 08/31/2001 EXAM PARAMETERS: NUMBER OF VIEWS: two views TECHNIQUE: Digital Frontal and Lateral radiographic views of the chest acquired. RADIATION DOSE: NA LIMITATIONS: none FINDINGS: LUNGS AND PLEURA: No opacities, masses or pneumothorax. No pleural effusion. MEDIASTINUM AND HILAR STRUCTURES: No masses or contour abnormalities. HEART AND VASCULAR STRUCTURES: Heart normal size. No evidence for failure. BONES: No acute findings. HARDWARE: None in the chest. OTHER: No other significant finding. IMPRESSION: NO ACUTE RADIOGRAPHIC FINDING IN THE CHEST. TECHNICAL DOCUMENTATION: JOB ID: [id number] [employer] [place]- All Rights Reserved Reading location - IP/workstation name: [email or web address]
[2018-08-06 11:14] LABS: ABSOLUTE EOSINOPHILS # (AUTO) 0.1 10^3/uL (0.0-0.6); ABSOLUTE LYMPHOCYTES (AUTO) 1.3 10^3/uL (0.5-4.7); ABSOLUTE MONOCYTES (AUTO) 0.4 10^3/uL (0.1-1.4); ABSOLUTE NEUT (AUTO) 5.5 10^3/uL (1.7-8.2); BASOPHILS % (AUTO) 0.1 % (0-2); EOSINOPHILS % (AUTO) 1.4 % (0-6); HEMATOCRIT 40.6 % (36.0-47.0); HEMOGLOBIN 13.8 g/dL (12.0-15.5); LYMPHOCYTES % (AUTO) 18.3 % (13-45); MEAN CORPUSCULAR HEMOGLOBIN 32.8 pg (27.0-33.4); MEAN CORPUSCULAR VOLUME 97 fl (80-97); MONOCYTES % (AUTO) 4.8 % (3-13); PLATELET COUNT 273 10^3/uL (150-450); RED CELL DISTRIBUTION WIDTH 13.7 % (11.5-14.0); SEGMENTED NEUTROPHILS % (AUTO) 75.4 % (42-78); TOTAL CELLS COUNTED % (AUTO) 100 %; WHITE BLOOD COUNT 7.3 10^3/uL (4.0-10.5)
[2018-08-06 11:47] LABS: ALANINE AMINOTRANSFERASE 21 U/L (9-52); ALBUMIN 4.3 g/dL (3.5-5.0); ALKALINE PHOSPHATASE 94 U/L (38-126); ANION GAP 8 (5-19); ASPARTATE AMINO TRANSFERASE 22 U/L (14-36); BILIRUBIN,DIRECT 0.1 mg/dL (0.0-0.4); BILIRUBIN,TOTAL 0.4 mg/dL (0.2-1.3); BLOOD UREA NITROGEN 8 mg/dL (7-20); CALCIUM 9.4 mg/dL (8.4-10.2); CARBON DIOXIDE 27 mmol/L (22-30); CHLORIDE 108 mmol/L (98-107); GLUCOSE 76 mg/dL (75-110); POTASSIUM 4.3 mmol/L (3.6-5.0); SODIUM 143.4 mmol/L (137-145); TOTAL PROTEIN 7.4 g/dL (6.3-8.2)
[2018-08-06] MEDS ORDERED: ALBUTEROL SULFATE 0.083% NEB 2.5 MG/3 ML AMPUL NEB ONE (12:25)
--- NOTE | 2018-08-06 12:36 | ER Document Report ---
ED Respiratory Problem - General Chief Complaint: Breathing Difficulty Stated Complaint: DIFFICULTY BREATHING Time Seen by Provider: 08/06/18 10:00 Mode of Arrival: Wheelchair Information source: Patient Notes: 52-year-old female with wheezing and cough that she believes is due to her asthma which is gotten worse the past 2 days after being exposed to a spray at work. She does not have an inhaler or nebulizer medication. She has a Flovent which she did not use. TRAVEL OUTSIDE OF THE [place] IN LAST 30 DAYS: No - Related Data Allergies/Adverse Reactions: No Known Allergies Allergy (Verified 08/06/18 09:43) Past Medical History - General Information source: Patient - Social History Smoking Status: Never Smoker Frequency of alcohol use: Rare Drug Abuse: None Family History: Hypertension, Other - asthma, Patient has suicidal ideation: No Patient has homicidal ideation: No Pulmonary Medical History: Reports: Hx Asthma Denies: Hx Tuberculosis Endocrine Medical History: Reports: Hx Hyperthyroidism Renal/ Medical History: Denies: Hx Peritoneal Dialysis Psychiatric Medical History: Denies: Hx Depression Past Surgical History: Reports: Hx Abdominal Surgery - UMBILICAL HERNIA REPAIR, Hx Umbilical Hernia - Immunizations Immunizations up to date: Yes Hx Diphtheria, Pertussis, Tetanus Vaccination: Yes Hx Pneumococcal Vaccination: 03/25/14 Review of Systems - Review of Systems Constitutional: No symptoms reported EENT: No symptoms reported Cardiovascular: No symptoms reported Respiratory: See HPI Gastrointestinal: No symptoms reported Genitourinary: No symptoms reported Female Genitourinary: No symptoms reported Musculoskeletal: No symptoms reported Skin: No symptoms reported Hematologic/Lymphatic: No symptoms reported Neurological/Psychological: No symptoms reported Physical Exam - Vital signs Vitals: Temp Pulse Resp BP Pulse Ox 98.1 F 114 H 20 185/103 H 92 08/06/18 10:48 08/06/18 10:48 08/06/18 10:48 08/06/18 10:48 08/06/18 10:48 Interpretation: Normal - General General appearance: Appears well, Alert - HEENT Head: Normocephalic, Atraumatic Eyes: Normal Conjunctiva: Normal Pupils: PERRL Tympanic membrane: Normal Pharynx: Normal Neck: Supple. No: Lymphadenopathy - Respiratory Respiratory status: Pursed lip breathing Chest status: Nontender Breath sounds: Wheezing - biLateral expiratory Chest palpation: Normal - Cardiovascular Rhythm: Regular Heart sounds: Normal auscultation Murmur: No - Abdominal Inspection: Normal Distension: No distension Bowel sounds: Normal Tenderness: Nontender Organomegaly: No organomegaly - Back Back: Normal, Nontender - Extremities General upper extremity: Normal inspection, Nontender, Normal color, Normal ROM , Normal temperature General lower extremity: Normal inspection, Nontender, Normal color, Normal ROM , Normal temperature, Normal weight bearing. No: Yohan's sign - Neurological Neuro grossly intact: Yes Cognition: Normal Orientation: AAOx4 Aimee Coma Scale Eye Opening: Spontaneous Aimee Coma Scale Verbal: Oriented [place] Coma Scale Motor: Obeys Commands Aimee Coma Scale Total: 15 Speech: Normal Motor strength normal: LUE, RUE, LLE, RLE Sensory: Normal - Psychological Associated symptoms: Normal affect, Normal mood - Skin Skin Temperature: Warm Skin Moisture: Dry Skin Color: Normal Course - Re-evaluation Re-evalutation: 08/06/18 13:24 Faint expiratory wheezing on the right. I am dispensing her an albuterol metered-dose inhaler since she is so she does not have money to buy one. She does think that she can get the prednisone. Chest x-ray is negative. - Vital Signs Vital signs: Temp Pulse Resp BP Pulse Ox 98.1 F 88 16 128/83 H 96 08/06/18 10:48 08/06/18 13:02 08/06/18 13:02 08/06/18 13:02 08/06/18 13:02 - Laboratory Result Diagrams: 08/06/18 10:35 08/06/18 10:35 Laboratory results interpreted by me: 08/06/18 10:35 Chloride 108 H Creatinine 0.46 L - EKG Interpretation by Ct EKG shows normal: Sinus rhythm Rate: Tachycardia Rhythm: Other - Computer read atrial fibrillation and she definitely does not have that it is a sinus tachycardia rate 112, QT 300. QTc 410 Discharge - Discharge Clinical Impression: Asthma exacerbation Qualifiers: Asthma severity: unspecified severity Asthma persistence: intermittent Qualified Code(s): J45.21 - Mild intermittent asthma with (acute) exacerbation Condition: Good Disposition: HOME, SELF-CARE Instructions: Asthma ([facility]), Inhaled Bronchodilators ([facility]), Steroid Medication Additional Instructions: Use the nebulizer every 4 hours as needed for chest tightness and wheezing Albuterol metered-dose inhaler 2 puffs every 3 hours Prednisone 40 mg daily starting tomorrow for 4 days Return to the emergency room for worsening of the symptoms Schedule appointment with Dr. Roac on Thursday for recheck Prescriptions: Albuterol Sulfate [Ventolin 0.083% Neb 2.5 mg/3 mL Ampul] 2.5 mg NEB Q3HP PRN # 25 vial PRN Reason: Albuterol Sulfate [Proair HFA Inhalation Aerosol 8.5 gm MDI] 2 puff IH Q3HP PRN #1 hfa.aer.[id number] PRN Reason: Prednisone [Deltasone 20 mg Tablet] 40 mg PO DAILY #8 tablet Forms: Return to Work Referrals: LISA ROCA DO [Primary Care Provider] - 08/09/18
[2018-08-06] MEDS ORDERED: ALBUTEROL SULFATE HFA (90 MCG/PUFF) 8 GM MDI (1 MDI/ER DISP) IH ONE (13:21)
[2018-08-06] MEDS ORDERED: ALBUTEROL SULFATE HFA (90 MCG/PUFF) 8 GM MDI (1 MDI/ER DISP) IH PRN (13:21)
[2018-08-06 13:29] VITALS: BP 123/72
--- NOTE | 2018-08-06 22:39 | EKG REPORT ---
SEVERITY:- ABNORMAL ECG - A-FLUTTER W/ PREDOM 2:1 AV BLOCK, A-RATE 231 : Confirmed by: Liv Donnelly MD 06-Aug-2018 22:38:14
== END 2018-08-06 13:30 | disposition home or self-care (01) ==
LOC: ER 09:42
DX: J45.21 Mild intermittent asthma with (acute) exacerbation (principal); R05 Cough; R00.0 Tachycardia, unspecified
CPT/HCPCS: 93005; 94640 ×2; 99285; 96372; 36415; 85025; 80053; 71046; 93010; J2930; J7620

== ENCOUNTER 2018-08-11 03:25 | Inpatient (IN) | payer SELFPAY ==
[2018-08-11] MEDS ORDERED: ALBUTEROL SULFATE 0.083% NEB 2.5 MG/3 ML AMPUL NEB ONE ×2 (03:32→05:26)
[2018-08-11] MEDS ORDERED: IPRATROPIUM/ALBUTEROL 0.5-2.5 MG/3 ML AMPUL NEB ONE ×3 (03:32→08:43)
--- NOTE | 2018-08-11 03:56 | ER Document Report ---
ED Respiratory Problem - General Chief Complaint: Breathing Difficulty Stated Complaint: SHORTNESS OF BREATH Time Seen by Provider: 08/11/18 03:30 Mode of Arrival: Stretcher Information source: Emergency Med Personnel TRAVEL OUTSIDE OF THE [place] IN LAST 30 DAYS: No - HPI Patient complains to provider of: Asthma, Cough, Short of breath Onset: Last week Duration: Worse/persistent Quality of pain: Achy Context: Hx asthma Short of Breath: Severe Chest pain/discomfort: Tightness Cough: Nonproductive At home treatment: Bronchodilators, Oral steroids EMS treatments: Bronchodilators, CPAP, Oxygen, Solumedrol Associated symptoms: Chest pain/discomfort, Cough, Short of breath, Wheezing Similar symptoms previously: Yes Recently seen / treated by doctor: Yes Notes: Patient is a 52-year-old female presenting to the emergency room today complaining of shortness of breath with nonproductive cough and wheezing worsening over the past week, she was recently seen in this emergency department for asthma, was started on prednisone, that ran out a few days ago, she has been using nebulizer treatments at home but symptoms have worsened significantly, she has had previous hospitalizations and intubations for severe asthma, EMS has administered several breathing treatments in route as well as IV Solu-Medrol and 2 g of magnesium, they attempted to place patient on CPAP but she was unable to tolerate it in route, she does report some improvement of symptoms but continues to have severe wheezing and difficulty moving air as well as some left-sided chest pain - Related Data Allergies/Adverse Reactions: No Known Allergies Allergy (Verified 08/06/18 09:43) Past Medical History - General Information source: Patient - Social History Smoking Status: Never Smoker Family History: Hypertension, Other - asthma, Patient has suicidal ideation: No Patient has homicidal ideation: No Pulmonary Medical History: Reports: Hx Asthma Denies: Hx Tuberculosis Endocrine Medical History: Reports: Hx Hyperthyroidism Renal/ Medical History: Denies: Hx Peritoneal Dialysis Psychiatric Medical History: Denies: Hx Depression Past Surgical History: Reports: Hx Abdominal Surgery - UMBILICAL HERNIA REPAIR, Hx Umbilical Hernia - Immunizations Immunizations up to date: Yes Hx Diphtheria, Pertussis, Tetanus Vaccination: Yes Hx Pneumococcal Vaccination: 03/25/14 Review of Systems - Review of Systems Constitutional: No symptoms reported EENT: No symptoms reported Cardiovascular: Chest pain Respiratory: See HPI Gastrointestinal: No symptoms reported Genitourinary: No symptoms reported Female Genitourinary: No symptoms reported Musculoskeletal: No symptoms reported Skin: No symptoms reported Hematologic/Lymphatic: No symptoms reported Neurological/Psychological: No symptoms reported -: Yes All other systems reviewed and negative Physical Exam - Vital signs Vitals: Pulse Ox 100 08/11/18 03:30 Interpretation: Tachycardic, Tachypneic - General In distress: Moderate - HEENT Head: Normocephalic, Atraumatic Eyes: Normal Pupils: PERRL - Respiratory Respiratory status: Respiratory distress, Depressed respirations, Labored, Pursed lip breathing, Retractions, Tachypnea, Tripod position Chest status: Tender Breath sounds: Decreased air movement, Wheezing Chest palpation: Normal - Cardiovascular Rhythm: Regular Heart sounds: Normal auscultation Murmur: No - Abdominal Inspection: Normal Distension: No distension Bowel sounds: Normal Tenderness: Nontender Organomegaly: No organomegaly - Back Back: Normal, Nontender - Extremities General upper extremity: Normal inspection, Nontender, Normal color, Normal ROM , Normal temperature General lower extremity: Normal inspection, Nontender, Normal color, Normal ROM , Normal temperature, Normal weight bearing. No: Yohan's sign - Neurological Neuro grossly intact: Yes Cognition: Normal Orientation: AAOx4 Aimee Coma Scale Eye Opening: Spontaneous [place] Coma Scale Verbal: Oriented [place] Coma Scale Motor: Obeys Commands Aimee Coma Scale Total: 15 Speech: Normal Motor strength normal: LUE, RUE, LLE, RLE Sensory: Normal - Psychological Associated symptoms: Normal affect, Normal mood - Skin Skin Temperature: Warm Skin Moisture: Dry Skin Color: Normal Course - Re-evaluation Re-evalutation: 08/11/18 06:06 Patient is a 52-year-old female with a history of severe asthma, arriving to the emergency department in moderate to severe respiratory distress requiring immediate back BiPAP placement, x-ray findings are consistent with pneumonia, she was eventually weaned off of BiPAP and placed on 4 L nasal cannula but continues to have diffuse wheezing bilaterally, requiring close observation and monitoring as well as multiple breathing treatments, patient was discussed with the hospitalist service who agrees to admit for further evaluation and treatment - Vital Signs Vital signs: Temp Pulse Resp BP Pulse Ox 98.3 F 23 H 99 08/11/18 03:43 08/11/18 03:34 08/11/18 03:34 - Laboratory Result Diagrams: 08/11/18 03:53 08/11/18 03:53 Laboratory results interpreted by me: 08/11/18 08/11/18 03:53 03:53 WBC 16.1 H Seg Neutrophils % 81.0 H Absolute Neutrophils 13.1 H Creatinine 0.51 L Direct Bilirubin 0.6 H AST 44 H - Diagnostic Test Radiology reviewed: Image reviewed, Reports reviewed - EKG Interpretation by Me EKG shows normal: Sinus rhythm Rate: Normal Rhythm: NSR Critical Care Note - Critical Care Note Total time excluding time spent on procedures (mins): 40 Comments: Patient arrived to the emergency room in respiratory distress requiring multiple albuterol and DuoNeb breathing treatments as well as BiPAP placement, eventually being admitted to the IMCU for pneumonia with acute asthma exacerbation Discharge - Discharge Clinical Impression: Asthma exacerbation, Pneumonia Condition: Stable Disposition: ADMITTED INPATIENT Admitting Provider: Hospitalist Unit Admitted: [facility]
[2018-08-11 04:10] LABS: ABSOLUTE EOSINOPHILS # (AUTO) 0.1 10^3/uL (0.0-0.6); ABSOLUTE LYMPHOCYTES (AUTO) 2.2 10^3/uL (0.5-4.7); ABSOLUTE MONOCYTES (AUTO) 0.8 10^3/uL (0.1-1.4); ABSOLUTE NEUT (AUTO) 13.1 10^3/uL (1.7-8.2); BASOPHILS % (AUTO) 0.1 % (0-2); EOSINOPHILS % (AUTO) 0.6 % (0-6); HEMATOCRIT 39.9 % (36.0-47.0); HEMOGLOBIN 13.5 g/dL (12.0-15.5); LYMPHOCYTES % (AUTO) 13.6 % (13-45); MEAN CORPUSCULAR HEMOGLOBIN 32.5 pg (27.0-33.4); MEAN CORPUSCULAR HGB CONC 33.8 g/dL (32.0-36.0); MEAN CORPUSCULAR VOLUME 96 fl (80-97); MONOCYTES % (AUTO) 4.7 % (3-13); PLATELET COUNT 276 10^3/uL (150-450); RED BLOOD COUNT 4.15 10^6/uL (3.72-5.28); RED CELL DISTRIBUTION WIDTH 13.9 % (11.5-14.0); TOTAL CELLS COUNTED % (AUTO) 100 %; WHITE BLOOD COUNT 16.1 10^3/uL (4.0-10.5)
[2018-08-11] MEDS ORDERED: MORPHINE SULFATE 10 MG/ML INJ IV ONE ×2 (04:13→04:48)
--- NOTE | 2018-08-11 04:13 | RADIOLOGY REPORT (SQ) ---
EXAM DESCRIPTION: X-ray single view chest. CLINICAL HISTORY: 52 years Female, SOB COMPARISON: None. TECHNIQUE: Single portable view of the chest performed on 08/11/2018 at 3:51 AM FINDINGS: The lungs are well expanded. There is airspace disease in the left inferior hemithorax possibly within the lingula or left lower lobe concerning for a pneumonic infiltrate. The lateral costophrenic sulci are clear. There is no evidence of a pneumothorax. The cardiac silhouette is normal in size and configuration. The mediastinal contours are normal. No acute osseous abnormality is identified. No focal soft tissue abnormalities are seen. Lines and tubes: None. IMPRESSION: Airspace process in the left inferior hemithorax concerning for a pneumonic infiltrate in the left lower lobe or lingula. A mass is considered less likely at this time.
[2018-08-11 04:27] LABS: ALANINE AMINOTRANSFERASE 28 U/L (9-52); ALBUMIN 4.6 g/dL (3.5-5.0); ALKALINE PHOSPHATASE 117 U/L (38-126); ANION GAP 10 (5-19); ASPARTATE AMINO TRANSFERASE 44 U/L (14-36); BILIRUBIN,DIRECT 0.6 mg/dL (0.0-0.4); BLOOD UREA NITROGEN 11 mg/dL (7-20); CALCIUM 8.4 mg/dL (8.4-10.2); CARBON DIOXIDE 25 mmol/L (22-30); CHLORIDE 104 mmol/L (98-107); GLUCOSE 110 mg/dL (75-110); SODIUM 139.2 mmol/L (137-145); TOTAL PROTEIN 7.8 g/dL (6.3-8.2)
[2018-08-11] MEDS ORDERED: CEFTRIAXONE INJ 1000 MG VIAL IV ONE (04:44)
[2018-08-11] MEDS ORDERED: AZITHROMYCIN INJ 500 MG VIAL IV ONE (04:44)
[2018-08-11] MEDS ORDERED: IPRATROPIUM/ALBUTEROL 0.5-2.5 MG/3 ML AMPUL NEB PRN (05:44)
[2018-08-11] MEDS ORDERED: MAG HYDROX/AL HYDROX/SIMETH SUSP 30 ML UDCUP PO PRN (05:44)
[2018-08-11] MEDS ORDERED: PROMETHAZINE HCL INJ 25 MG/1 ML VIAL IV PRN (05:44)
[2018-08-11] MEDS ORDERED: PROMETHAZINE HCL 25 MG TABLET PO PRN (05:44)
[2018-08-11] MEDS ORDERED: NORMAL SALINE 1000 ML 1,000 ML IV PRN (05:44)
[2018-08-11] MEDS ORDERED: ACETAMINOPHEN 325 MG TABLET PO PRN (05:44)
[2018-08-11 06:26] LABS: VENOUS BLOOD BASE EXCESS -0.1 mmol/L; VENOUS BLOOD HCO3 23.2 mmol/L (20-32); VENOUS BLOOD PCO2 33.9 mmHg (35-63); VENOUS BLOOD PH 7.45 (7.30-7.42)
[2018-08-11] MEDS: METHYLPREDNISOLONE INJ 125 MG/2 ML SDV IV SCH (06:32)
--- NOTE | 2018-08-11 07:15 | PDOC H&P ---
History of Present Illness Admission Date/PCP: 08/11/18 05:41 LISA SONG DO History of Present Illness: JAROD MOON is a 52 year old female with history of bronchial asthma and intubation x2 in the past, no steroid dependent, presenting to the emergency room today complaining of shortness of breath with nonproductive cough and wheezing worsening over the past week, she was recently seen in this emergency department for asthma, was started on prednisone, that ran out a few days ago, she has been using nebulizer treatments at home but symptoms have worsened significantly, she has had previous hospitalizations and intubations for severe asthma, EMS has administered several breathing treatments in route as well as IV Solu-Medrol and 2 g of magnesium, they attempted to place patient on CPAP but she was unable to tolerate it in route, she does report some improvement of symptoms but continues to have severe wheezing and difficulty moving air as well as some left-sided chest pain. Chest x-ray shows left lower lobe infiltrates. Despite multiple treatments given in the ED the patient is a still speaking in not full sentences, complaining of severe thoracic pain during inspiration, shortness of breath. Tells me that he had some recently flulike symptoms with runny nose, sore throat and general malaise. Also had subjective fever and chills. In the emergency department patient was placed on BiPAP secondary to her respiratory distress that was discontinued by the time I saw her and she was not desaturating during her stay in the ED. Still with moderate to severe wheezing , patient needs to be admitted for further management. Her last similar episode was about 4 years ago. [place] that her flulike symptoms trigger these are bronchospasms. Past Medical History Pulmonary Medical History: Reports: Asthma Endocrine Medical History: Reports: Hyperthyroidism Past Surgical History Past Surgical History: Reports: None Social History Smoking Status: Never Smoker Frequency of Alcohol Use: Social Hx Recreational Drug Use: No Drugs: None Hx Prescription Drug Abuse: No Family History Family History: Hypertension, Other - asthma, Parental Family History Reviewed: Yes - As above Children Family History Reviewed: NA Sibling(s) Family History Reviewed.: NA Medication/Allergy Home Medications: Albuterol Sulfate [Ventolin Hfa] 2 puff IN Q4HP PRN 11/05/15 Montelukast Sodium 10 mg PO QHS #30 tablet 11/07/15 Acetaminophen [Tylenol 325 mg Tablet] 650 mg PO Q4HP PRN tablet 11/17/16 Albuterol Sulfate [Albuterol Sulfate 2.5mg/3 mL] 2.5 mg IH DAILY #30 vial Budesonide/Formoterol Fumarate [Symbicort HFA 160-4.5 mcg Inhaler 6 gm] 2 puff IH Q12 #1 inhaler 11/17/16 Hydrocodone Bit/Homatropine [Hycodan 5-1.5 mg Tablet] 1 tab PO Q4HP PRN #20 tablet 11/17/16 Prednisone [Deltasone 20 mg Tablet] 20 mg PO ASDIR PRN #10 tablet 11/17/16 Albuterol Sulfate [Proair HFA Inhalation Aerosol 8.5 gm MDI] 2 puff IH Q3HP PRN #1 hfa.[email or web address] 08/06/18 Albuterol Sulfate [Ventolin 0.083% Neb 2.5 mg/3 mL Ampul] 2.5 mg NEB Q3HP PRN # 25 vial 08/06/18 Prednisone [Deltasone 20 mg Tablet] 40 mg PO DAILY #8 tablet 08/06/18 Allergies/Adverse Reactions: No Known Allergies Allergy (Verified 08/06/18 09:43) Review of Systems Review of Systems: As outlined in the HPI, others negative Physical Exam Vital Signs: Temp Pulse Resp BP Pulse Ox 98.3 F 23 H 99 08/11/18 03:43 08/11/18 03:34 08/11/18 03:34 Additional comments: General appearance: Well-developed, well-nourished, alert and cooperative, and appears to be in acute distress secondary to her respiratory distress Head: Normocephalic Eyes: PEERL, EOMI, vision is grossly intact. Ears: External auditory canal and tympanic membranes clear, hearing grossly intact. Nose: No nasal discharge. Throat: Oral cavity and pharynx normal. No inflammation, swelling, exudate or lesions. Neck: Neck supple, nontender without lymphadenopathy, masses or thyromegaly. Cardiac: Normal S1 and S2. No S3, S4 or murmurs. Rhythm is regular. There is no peripheral edema, cyanosis or pallor. Extremities are warm and well perfused. Capillary refill is less than 2 seconds. No carotid bruits. Lungs: Bilateral moderate to severe expiratory wheezing, do not appreciate crackles with minimal rhonchi, not using accessory muscles at the time of my evaluation. Abdomen: Positive bowel sounds. Soft. Nondistended, nontender. No guarding or rebound. No masses. No hepatosplenomegaly Extremities: No significant deformity or joint abnormality. No edema. Peripheral pulses intact. No varicosities. Neurological: Cranial nerves II through XII grossly intact. Strength and sensation symmetric and intact throughout. Reflexes 2+ throughout. Skin: Skin normal color, texture and turgor with no lesions or eruptions, warm and dry. Psychiatric: The mental examination revealed the patient was oriented to person , place, and time. The patient was able to demonstrate good judgment on recent , without hallucinations, abnormal affect or abnormal behaviors. Results Laboratory Results: 08/11/18 08/11/18 08/11/18 03:53 03:53 03:53 WBC 16.1 H RBC 4.15 Hgb 13.5 Hct 39.9 MCV 96 MCH 32.5 MCHC 33.8 RDW 13.9 Plt Count 276 Seg Neutrophils % 81.0 H Lymphocytes % 13.6 Monocytes % 4.7 Eosinophils % 0.6 Basophils % 0.1 Absolute Neutrophils 13.1 H Absolute Lymphocytes 2.2 Absolute Monocytes 0.8 Absolute Eosinophils 0.1 Absolute Basophils 0.0 VBG pH VBG pCO2 VBG HCO3 VBG Base Excess Sodium 139.2 Potassium 4.0 Chloride 104 Carbon Dioxide 25 Anion Gap 10 BUN 11 Creatinine 0.51 L Est GFR ( Amer) > 60 Est GFR (Non-Af Amer) > 60 Glucose 110 Calcium 8.4 Total Bilirubin 1.0 Direct Bilirubin 0.6 H AST 44 H ALT 28 Alkaline Phosphatase 117 Troponin I < 0.012 Total Protein 7.8 Albumin 4.6 08/11/18 03:53 WBC RBC Hgb Hct MCV MCH MCHC RDW Plt Count Seg Neutrophils % Lymphocytes % Monocytes % Eosinophils % Basophils % Absolute Neutrophils Absolute Lymphocytes Absolute Monocytes Absolute Eosinophils Absolute Basophils VBG pH 7.45 H VBG pCO2 33.9 L VBG HCO3 23.2 VBG Base Excess -0.1 Sodium Potassium Chloride Carbon Dioxide Anion Gap BUN Creatinine Est GFR ( Amer) Est GFR (Non-Af Amer) Glucose Calcium Total Bilirubin Direct Bilirubin AST ALT Alkaline Phosphatase Troponin I Total Protein Albumin Impressions: Chest X-Ray 08/11/18 03:32 IMPRESSION: Airspace process in the left inferior hemithorax concerning for a pneumonic infiltrate in the left lower lobe or lingula. A mass is considered less likely at this time. Assessment & Plan - Diagnosis (1) Asthma exacerbation Qualifiers: Asthma persistence: intermittent Is this a current diagnosis for this admission?: Yes Plan: Patient comes with progressive shortness of breath, severe wheezing for the last 1 or 2 weeks. Despite several medications given in the emergency department she is a still on respiratory distress with moderate to severe wheezing. Will admit the patient to the stepdown unit, she has good oxygen saturation on oxygen via nasal cannula but she will have BiPAP as needed. IV is steroids. Incentive spirometer. (2) Community acquired pneumonia Is this a current diagnosis for this admission?: Yes Plan: Chest x-ray done in the ED shows left lower lobe infiltrate. We will continue the patient with IV antibiotics with azithromycin and IV Rocephin. Blood culture has been sent please follow identification and sensitivity. RT consult. IV steroids. Nebulizer treatments as needed. Continues telemetry monitoring with close respiratory monitoring. - Time Time Spent: 30 to 50 Minutes - Inpatient Certification Based on my medical assessment, after consideration of the patient's comorbidities, presenting symptoms, or acuity I expect that the services needed warrant INPATIENT care.: Yes I certify that my determination is in accordance with my understanding of Medicare's requirements for reasonable and necessary INPATIENT services [42 CFR 412.3e].: Yes Medical Necessity: Risk of Complication if Not Cared For in Hospital
--- NOTE | 2018-08-11 07:59 | EKG REPORT ---
SEVERITY:- NORMAL ECG - SINUS RHYTHM : Confirmed by: Jm Brandon MD 11-Aug-2018 07:59:29
[2018-08-11] MEDS ORDERED: LEVALBUTEROL HCL NEB 1.25 MG/3 ML AMPUL NEB PRN (08:35)
[2018-08-11] MEDS ORDERED: VANCOMYCIN HCL 0 MG in DEXTROSE 5%-WATER 250 ML IV NR (09:15)
[2018-08-11 09:41] LABS: ARTERIAL BLOOD BASE EXCESS -0.8 mmol/L; ARTERIAL BLOOD H2CO3 1.32 mmol/L (1.05-1.35); ARTERIAL BLOOD HCO3 24.7 mmol/L (20-24); ARTERIAL BLOOD O2 SATURATION 92.3 % (94-98); ARTERIAL BLOOD PH 7.37 (7.35-7.45); ARTERIAL BLOOD PO2 65.5 mmHg (80-100)
[2018-08-11 09:43] LABS: ARTERIAL BLOOD FIO2 ROOM AIR
[2018-08-11] MEDS ORDERED: AZITHROMYCIN INJ 500 MG VIAL IV SCH (10:00)
[2018-08-11] MEDS ORDERED: IPRATROPIUM/ALBUTEROL 0.5-2.5 MG/3 ML AMPUL NEB SCH (10:00)
[2018-08-11] MEDS ORDERED: CEFTRIAXONE INJ 1000 MG VIAL IV SCH (10:00)
[2018-08-11] MEDS ORDERED: METHYLPREDNISOLONE INJ 125 MG/2 ML SDV IV ONE (10:00)
[2018-08-11] MEDS: ENOXAPARIN SODIUM INJ 40 MG/0.4 ML DISP.SYRIN SUBCUT SCH (10:19)
[2018-08-11] MEDS: CEFEPIME 2 GM/D5W RTU 2 GM/50 ML RTUPB IV SCH ×2 (10:19→22:11)
[2018-08-11] MEDS: GUAIFENESIN/CODEINE PHOS 100-10 MG/ 5 ML UDC PO PRN (10:19)
[2018-08-11] MEDS: NORMAL SALINE 1000 ML 1,000 ML IV PRN ×2 (10:23→22:12)
[2018-08-11] MEDS: IPRATROPIUM/ALBUTEROL 0.5-2.5 MG/3 ML AMPUL NEB SCH ×4 (12:06→23:33)
[2018-08-11] MEDS: ACETAMINOPHEN 325 MG TABLET PO PRN (14:13)
[2018-08-11] MEDS: VANCOMYCIN HCL 1,000 MG in DEXTROSE 5%-WATER 250 ML IV SCH ×2 (14:14→22:12)
--- NOTE | 2018-08-11 15:31 | Progress Note ---
Provider Note Provider Note: 52 y.o. F admitted to the hospital for acute asthma exacerbation and hospital- acquired pneumonia. Patient was recently treated for an asthma exacerbation at [facility] on 08/06/2018 and sent home with prescription for p.o. prednisone and albuterol treatments. She returned 08/11/2018 in acute respiratory distress and evidence of LLL PNA on CXR. The patient was seen this morning on rounds, she appears to be in moderate respiratory distress, receiving nebulizer treatment during assessment. The patient is tachypneic with a respiratory rate 25-33, wheezing is auscultated in all lung rojas, the patient reports feeling a "tightness" in her chest (L>R) exacerbated with coughing. 1. ACUTE RESPIRATORY FAILURE: related to asthma exacerbation stemming from LLL PNA. ABG this morning only reveals hypoxia (65.5mmHg on RA), no evidence of acidosis. q4h scheduled Duoneb. q4h Xopenex PRN. Empiric antibiotic coverage for hospital acquired PNA. Scheduled IV SoluMedrol. Supplemental O2 via nasal cannula for SPO2 > 93%. 2. ASTHMA EXACERBATION: plan as above 3. HOSPITAL ACQUIRED PNA: As seen on CXR. (+) LLL infiltrate. Patient was recently treated at [facility] ED for an asthma exacerbation. Plan to empirically treat her for HAP with Cefepime and Vancomycin. Blood and sputum cultures pending.
[2018-08-12] MEDS: IPRATROPIUM/ALBUTEROL 0.5-2.5 MG/3 ML AMPUL NEB SCH ×6 (03:44→23:33)
[2018-08-12 05:18] LABS: HEMATOCRIT 36.3 % (36.0-47.0); HEMOGLOBIN 12.1 g/dL (12.0-15.5); MEAN CORPUSCULAR HEMOGLOBIN 32.3 pg (27.0-33.4); MEAN CORPUSCULAR HGB CONC 33.3 g/dL (32.0-36.0); MEAN CORPUSCULAR VOLUME 97 fl (80-97); PLATELET COUNT 243 10^3/uL (150-450); RED BLOOD COUNT 3.75 10^6/uL (3.72-5.28); RED CELL DISTRIBUTION WIDTH 13.8 % (11.5-14.0); WHITE BLOOD COUNT 18.9 10^3/uL (4.0-10.5)
[2018-08-12 05:41] LABS: ALANINE AMINOTRANSFERASE 25 U/L (9-52); ALBUMIN 3.6 g/dL (3.5-5.0); ALKALINE PHOSPHATASE 89 U/L (38-126); ANION GAP 7 (5-19); ASPARTATE AMINO TRANSFERASE 15 U/L (14-36); BILIRUBIN,DIRECT 0.2 mg/dL (0.0-0.4); BILIRUBIN,TOTAL 0.4 mg/dL (0.2-1.3); BLOOD UREA NITROGEN 9 mg/dL (7-20); CARBON DIOXIDE 26 mmol/L (22-30); CHLORIDE 105 mmol/L (98-107); GLUCOSE 107 mg/dL (75-110); POTASSIUM 4.8 mmol/L (3.6-5.0); SODIUM 137.6 mmol/L (137-145); TOTAL PROTEIN 6.4 g/dL (6.3-8.2)
[2018-08-12] MEDS: METHYLPREDNISOLONE INJ 125 MG/2 ML SDV IV SCH ×4 (05:47→23:41)
[2018-08-12] MEDS: VANCOMYCIN HCL 1,000 MG in DEXTROSE 5%-WATER 250 ML IV SCH ×2 (05:47→14:26)
[2018-08-12 06:08] LABS: ARTERIAL BLOOD BASE EXCESS 0.1 mmol/L; ARTERIAL BLOOD H2CO3 1.15 mmol/L (1.05-1.35); ARTERIAL BLOOD HCO3 24.3 mmol/L (20-24); ARTERIAL BLOOD O2 SATURATION 98.5 % (94-98); ARTERIAL BLOOD PCO2 38.2 mmHg (35-45); ARTERIAL BLOOD PH 7.42 (7.35-7.45); ARTERIAL BLOOD PO2 121.2 mmHg (80-100); ARTERIAL BLOOD TOTAL CO2 25.5 mmol/L (21-25)
[2018-08-12 06:09] LABS: ARTERIAL BLOOD FIO2 40%
[2018-08-12] MEDS ORDERED: CEFTRIAXONE 1 GM/D5W RTU 1 GM/50 ML RTUPB IV SCH (08:00)
[2018-08-12] MEDS ORDERED: AZITHROMYCIN 500 MG in DEXTROSE 5%-WATER 250 ML IV SCH (08:00)
[2018-08-12] MEDS: ENOXAPARIN SODIUM INJ 40 MG/0.4 ML DISP.SYRIN SUBCUT SCH (09:59)
[2018-08-12] MEDS: GUAIFENESIN/CODEINE PHOS 100-10 MG/ 5 ML UDC PO PRN (10:34)
[2018-08-12] MEDS: CEFEPIME 2 GM/D5W RTU 2 GM/50 ML RTUPB IV SCH ×2 (10:34→21:26)
[2018-08-12] MEDS ORDERED: PROMETHAZINE HCL INJ 25 MG/1 ML VIAL IV PRN (12:30)
--- NOTE | 2018-08-12 13:01 | PDOC PROGRESS REPORT ---
Subjective Progress Note for:: 08/12/18 Subjective:: 52 y.o. F admitted to the hospital for acute asthma exacerbation and hospital- acquired pneumonia. Patient was recently treated for an asthma exacerbation at [facility] on 08/06/2018 and sent home with prescription for p.o. prednisone and albuterol treatments. She returned 08/11/2018 in acute respiratory distress and evidence of LLL PNA on CXR. The patient was seen this morning on rounds, she is resting comfortably in bed on supplemental oxygen via nasal cannula. Patient states that she feels 'much better' today. So much so, she was able to ambulate to her bathroom and shower this morning. Patient endorses becoming mildly short of breath with physical exertion, but was able to catch her breath upon returning to bed. Upon assessment, the patient is able to answer all questions with complete sentences. She does not need to pause to catch her breath. Very mild wheezing auscultated in bilateral bases. Overall, her clinical picture has significantly improved compared to yesterday. Plan to continue broad-spectrum antibiotic coverage for hospital-acquired pneumonia. Scheduled and as needed nebulizer treatments. Scheduled IV steroids. BIPAP QHS PRN. If patient continues to improve, she will likely be eligible for discharge within 24-48 hours. Reason For Visit: CAP/ASTHMA EXACERBATION Physical Exam Vital Signs: Temp Pulse Resp BP Pulse Ox 98.2 F 87 20 121/51 L 98 08/12/18 08:34 08/12/18 11:36 08/12/18 11:36 08/12/18 08:34 08/12/18 11:36 Pulse Oximeter Continuous Start: 08/11/18 08: 56 Freq: RTQ4 Status: Active Document 08/12/18 11:36 TPO (Rec: 08/12/18 11:45 TPO [email or web address]) Pulse Oximetry Assessment Oxygen Saturation (92-100) 97 Oxygen Flow Rate (L/min) 2 Oxygen Delivery Method Nasal Cannula Fraction of Inspired Oxygen (FIO2) 28 Equipment Usage Equipment in Use Continuous SpO2 Machine # 1 Intake & Output 08/11/18 08/12/18 08/13/18 06:59 06:59 06:59 Intake Total 3875 1300 Balance 3875 1300 Weight 84.7 kg General appearance: PRESENT: no acute distress, well-developed, well-nourished Head exam: PRESENT: atraumatic Eye exam: PRESENT: conjunctiva pink, PERRLA Mouth exam: PRESENT: moist, neck supple, tongue midline Neck exam: PRESENT: full ROM Respiratory exam: PRESENT: symmetrical, unlabored, wheezes, other - productive cough. ABSENT: accessory muscle use, clear to auscultation julian, tachypnea Cardiovascular exam: PRESENT: RRR, +S1, +S2 Pulses: PRESENT: normal radial pulses, normal dorsalis pedis pul Vascular exam: PRESENT: normal capillary refill GI/Abdominal exam: PRESENT: normal bowel sounds, soft. ABSENT: tenderness Rectal exam: PRESENT: deferred Extremities exam: PRESENT: full ROM Musculoskeletal exam: PRESENT: ambulatory, full ROM, normal inspection Neurological exam: PRESENT: alert, awake, oriented to person, oriented to place , oriented to time, oriented to situation Psychiatric exam: PRESENT: appropriate affect Skin exam: PRESENT: dry, intact, normal color Results Laboratory Results: 08/12/18 04:22 08/12/18 04:22 08/12/18 08/12/18 08/12/18 04:22 04:22 06:00 WBC 18.9 H RBC 3.75 Hgb 12.1 Hct 36.3 MCV 97 MCH 32.3 MCHC 33.3 RDW 13.8 Plt Count 243 Carbonic Acid 1.15 HCO3/H2CO3 Ratio 21:1 ABG pH 7.42 ABG pCO2 38.2 ABG pO2 121.2 H ABG HCO3 24.3 H ABG O2 Saturation 98.5 H ABG Base Excess 0.1 FiO2 40% Sodium 137.6 Potassium 4.8 Chloride 105 Carbon Dioxide 26 Anion Gap 7 BUN 9 Creatinine 0.41 L Est GFR ( Amer) > 60 Est GFR (Non-Af Amer) > 60 Glucose 107 Calcium 9.0 Total Bilirubin 0.4 AST 15 ALT 25 Alkaline Phosphatase 89 Total Protein 6.4 Albumin 3.6 Impressions: Chest X-Ray 08/11/18 03:32 IMPRESSION: Airspace process in the left inferior hemithorax concerning for a pneumonic infiltrate in the left lower lobe or lingula. A mass is considered less likely at this time. Status: Imported from PACS Assessment & Plan - Diagnosis (1) Acute respiratory failure Qualifiers: Respiratory failure complication: hypoxia Qualified Code(s): J96.01 - Acute respiratory failure with hypoxia Is this a current diagnosis for this admission?: Yes Plan: Related to asthma exacerbation stemming from LLL PNA. ABG this morning reveals hypoxia has resolved, no evidence of acidosis. q4h scheduled Duoneb. q4h Xopenex PRN. Empiric antibiotic coverage for hospital acquired PNA. Scheduled IV SoluMedrol. Supplemental O2 via nasal cannula for SPO2 > 93%. BIPAP QHS PRN (2) Asthma exacerbation Qualifiers: Asthma persistence: intermittent Is this a current diagnosis for this admission?: Yes (3) Hospital-acquired pneumonia Is this a current diagnosis for this admission?: Yes Plan: As seen on CXR. (+) LLL infiltrate. Patient was recently treated at [facility] for an asthma exacerbation. empirically treat her for HAP with Cefepime and Vancomycin. Blood and sputum cultures pending. - Time Time Spent with patient: 15-24 minutes Medications reviewed and adjusted accordingly: Yes Anticipated discharge: Home Within: within 48 hours - Inpatient Certification Based on my medical assessment, after consideration of the patient's comorbidities, presenting symptoms, or acuity I expect that the services needed warrant INPATIENT care.: Yes I certify that my determination is in accordance with my understanding of Medicare's requirements for reasonable and necessary INPATIENT services [42 CFR 412.3e].: Yes Medical Necessity: Need for Nebulizer Therapy and Monitoring of Response, Need for IV Antibiotics, Risk of Complication if Not Cared For in Hospital - Plan Summary Plan Summary: Continue IV antibiotics. Scheduled IV steroids and nebulizer treatments. If patient continues to improve, plan for discharge home within 24-48 hours
[2018-08-12 15:15] LABS: VANCOMYCIN,TROUGH 9.7 ug/mL (5.0-20.0)
[2018-08-12] MEDS: NORMAL SALINE 1000 ML 1,000 ML IV PRN (17:59)
[2018-08-12] MEDS: ACETAMINOPHEN 325 MG TABLET PO PRN (19:51)
[2018-08-12] MEDS: VANCOMYCIN HCL 1,500 MG in DEXTROSE 5%-WATER 250 ML IV SCH (22:20)
[2018-08-13] MEDS: IPRATROPIUM/ALBUTEROL 0.5-2.5 MG/3 ML AMPUL NEB SCH ×6 (03:59→23:42)
[2018-08-13] MEDS: VANCOMYCIN HCL 1,500 MG in DEXTROSE 5%-WATER 250 ML IV SCH ×3 (05:33→21:51)
[2018-08-13] MEDS: METHYLPREDNISOLONE INJ 125 MG/2 ML SDV IV SCH ×3 (05:33→17:45)
[2018-08-13] MEDS: CEFEPIME 2 GM/D5W RTU 2 GM/50 ML RTUPB IV SCH ×2 (10:29→21:51)
[2018-08-13] MEDS: ENOXAPARIN SODIUM INJ 40 MG/0.4 ML DISP.SYRIN SUBCUT SCH (10:29)
[2018-08-13] MEDS: GUAIFENESIN/CODEINE PHOS 100-10 MG/ 5 ML UDC PO PRN (10:39)
[2018-08-13] MEDS ORDERED: IBUPROFEN 800 MG TABLET PO PRN (13:52)
[2018-08-13] MEDS: GUAIFENESIN 600 MG TABLET.SA PO SCH ×2 (15:12→21:51)
[2018-08-13] MEDS: NORMAL SALINE 1000 ML 1,000 ML IV PRN (21:53)
[2018-08-13 22:07] LABS: VANCOMYCIN,TROUGH 13.7 ug/mL (5.0-20.0)
[2018-08-14] MEDS: METHYLPREDNISOLONE INJ 125 MG/2 ML SDV IV SCH ×5 (01:10→23:45)
[2018-08-14] MEDS: IPRATROPIUM/ALBUTEROL 0.5-2.5 MG/3 ML AMPUL NEB SCH ×5 (04:00→19:38)
[2018-08-14 05:17] LABS: HEMATOCRIT 33.8 % (36.0-47.0); HEMOGLOBIN 11.5 g/dL (12.0-15.5); MEAN CORPUSCULAR HEMOGLOBIN 32.7 pg (27.0-33.4); MEAN CORPUSCULAR VOLUME 96 fl (80-97); PLATELET COUNT 239 10^3/uL (150-450); RED BLOOD COUNT 3.52 10^6/uL (3.72-5.28); RED CELL DISTRIBUTION WIDTH 13.6 % (11.5-14.0)
[2018-08-14] MEDS: VANCOMYCIN HCL 1,500 MG in DEXTROSE 5%-WATER 250 ML IV SCH ×3 (06:25→22:10)
[2018-08-14] MEDS: ENOXAPARIN SODIUM INJ 40 MG/0.4 ML DISP.SYRIN SUBCUT SCH (10:07)
[2018-08-14] MEDS: CEFEPIME 2 GM/D5W RTU 2 GM/50 ML RTUPB IV SCH ×2 (10:07→21:20)
[2018-08-14] MEDS: GUAIFENESIN 600 MG TABLET.SA PO SCH ×2 (10:07→21:20)
--- NOTE | 2018-08-14 14:01 | PDOC PROGRESS REPORT ---
Subjective Progress Note for:: 08/14/18 Subjective:: 52 y.o. F admitted to the hospital for acute asthma exacerbation and hospital- acquired pneumonia. Patient was recently treated for an asthma exacerbation at [facility] on 08/06/2018 and sent home with prescription for p.o. prednisone and albuterol treatments. She returned 08/11/2018 in acute respiratory distress and evidence of LLL PNA on CXR. The patient was seen this morning on rounds, she is resting comfortably in bed on room air. The patient was able to ambulate in the hallway on room air. Unfortunately, the patient's SPO2 dropped down to mid-80s and her HR increased to 120. Patient endorses becoming mildly short of breath with physical exertion , but was able to catch her breath upon returning to bed. Her SPO2 and HR return to normal range once the patient is at rest. Plan for CT chest to evaluate for other cardiopulmonary pathology that could be contributing to her hypoxia and SOB. Continue broad-spectrum antibiotic coverage for hospital-acquired pneumonia. Scheduled and as needed nebulizer treatments. Scheduled IV steroids. BIPAP QHS PRN. Reason For Visit: CAP/ASTHMA EXACERBATION Physical Exam Vital Signs: Temp Pulse Resp BP Pulse Ox 98.0 F 65 18 142/71 H 94 08/14/18 08:17 08/14/18 08:17 08/14/18 08:17 08/14/18 08:17 08/14/18 08:17 Pulse Oximeter Continuous Start: 08/11/18 08: 56 Freq: RTQ4 Status: Active Document 08/14/18 07:55 HCR (Rec: 08/14/18 08:59 HCR [id number]) Pulse Oximetry Assessment Oxygen Saturation (92-100) 98 Oxygen Flow Rate (L/min) 1 Oxygen Delivery Method Nasal Cannula Equipment Usage Equipment in Use Continuous SpO2 Machine # 1 Intake & Output 08/13/18 08/14/18 08/15/18 06:59 06:59 06:59 Intake Total 5957 3217 300 Balance 1661 1311 300 Weight 86.2 kg 88 kg General appearance: PRESENT: no acute distress, well-developed, well-nourished Head exam: PRESENT: atraumatic, normocephalic Eye exam: PRESENT: conjunctiva pink, EOMI, PERRLA. ABSENT: scleral icterus Ear exam: PRESENT: normal external ear exam Mouth exam: PRESENT: moist, tongue midline Neck exam: ABSENT: carotid bruit, JVD, lymphadenopathy, thyromegaly Respiratory exam: PRESENT: symmetrical, unlabored, wheezes. ABSENT: tachypnea Cardiovascular exam: PRESENT: RRR. ABSENT: diastolic murmur, rubs, systolic murmur Pulses: PRESENT: normal dorsalis pedis pul Vascular exam: PRESENT: normal capillary refill GI/Abdominal exam: PRESENT: normal bowel sounds, soft. ABSENT: distended, guarding, mass, organolmegaly, rebound, tenderness Rectal exam: PRESENT: deferred Extremities exam: PRESENT: full ROM. ABSENT: calf tenderness, clubbing, pedal edema Musculoskeletal exam: PRESENT: ambulatory, full ROM Neurological exam: PRESENT: alert, awake, oriented to person, oriented to place , oriented to time, oriented to situation Psychiatric exam: PRESENT: appropriate affect, normal mood Skin exam: PRESENT: dry, intact, warm Results Laboratory Results: 08/14/18 04:14 08/13/18 21:45 08/13/18 08/14/18 21:45 04:14 WBC 15.0 H RBC 3.52 L Hgb 11.5 L Hct 33.8 L MCV 96 MCH 32.7 MCHC 34.0 RDW 13.6 Plt Count 239 Creatinine 0.53 Est GFR ( Amer) > 60 Est GFR (Non-Af Amer) > 60 Impressions: Chest X-Ray 08/11/18 03:32 IMPRESSION: Airspace process in the left inferior hemithorax concerning for a pneumonic infiltrate in the left lower lobe or lingula. A mass is considered less likely at this time. Status: Imported from PACS Assessment & Plan - Diagnosis (1) Acute respiratory failure Qualifiers: Respiratory failure complication: hypoxia Qualified Code(s): J96.01 - Acute respiratory failure with hypoxia Is this a current diagnosis for this admission?: Yes Plan: Related to asthma exacerbation stemming from LLL PNA. ABG this morning reveals hypoxia has resolved, no evidence of acidosis. q4h scheduled Duoneb. q4h Xopenex PRN. Empiric antibiotic coverage for hospital acquired PNA. Scheduled IV SoluMedrol. Supplemental O2 via nasal cannula for SPO2 > 93%. BIPAP QHS PRN (2) Asthma exacerbation Qualifiers: Asthma persistence: intermittent Is this a current diagnosis for this admission?: Yes Plan: PLAN ABOVE Start on daily Singulair (3) Hospital-acquired pneumonia Is this a current diagnosis for this admission?: Yes Plan: As seen on CXR. (+) LLL infiltrate. Patient was recently treated at [facility] for an asthma exacerbation. empirically treat her for HAP with Cefepime and Vancomycin. Blood and sputum cultures pending. - Time Time Spent with patient: Less than 15 minutes Medications reviewed and adjusted accordingly: Yes Anticipated discharge: Home Within: within 48 hours - Inpatient Certification Based on my medical assessment, after consideration of the patient's comorbidities, presenting symptoms, or acuity I expect that the services needed warrant INPATIENT care.: Yes I certify that my determination is in accordance with my understanding of Medicare's requirements for reasonable and necessary INPATIENT services [42 CFR 412.3e].: Yes Medical Necessity: Need for IV Antibiotics, Risk of Complication if Not Cared For in Hospital - Plan Summary Plan Summary: CT CHEST. CONTINUE ABX AND STEROIDS. AMBULATE IN HALLWAY AT LEAST ONCE PER SHIFT.
--- NOTE | 2018-08-14 14:12 | PDOC PROGRESS REPORT ---
Subjective Progress Note for:: 08/13/18 Subjective:: 52 y.o. F admitted to the hospital for acute asthma exacerbation and hospital- acquired pneumonia. Patient was recently treated for an asthma exacerbation at [facility] on 08/06/2018 and sent home with prescription for p.o. prednisone and albuterol treatments. She returned 08/11/2018 in acute respiratory distress and evidence of LLL PNA on CXR. The patient was seen this morning on rounds, she is resting comfortably in bed on nasal cannula. The patient was able to ambulate in the hallway on room air but she became hypoxic with an SPO2 83%. Patient endorses becoming mildly short of breath with physical exertion, but was able to catch her breath upon returning to bed. Her SPO2 and HR return to normal range once the patient is at rest once back on nasal cannula. Continue broad-spectrum antibiotic coverage for hospital-acquired pneumonia. Scheduled and as needed nebulizer treatments. Scheduled IV steroids. BIPAP QHS PRN. Reason For Visit: CAP/ASTHMA EXACERBATION Physical Exam Vital Signs: Temp Pulse Resp BP Pulse Ox 98.3 F 101 H 16 138/82 H 94 08/14/18 12:00 08/14/18 12:00 08/14/18 12:00 08/14/18 12:00 08/14/18 12:00 Pulse Oximeter Continuous Start: 08/11/18 08: 56 Freq: RTQ4 Status: Active Document 08/14/18 07:55 HCR (Rec: 08/14/18 08:59 HCR [email or web address]) Pulse Oximetry Assessment Oxygen Saturation (92-100) 98 Oxygen Flow Rate (L/min) 1 Oxygen Delivery Method Nasal Cannula Equipment Usage Equipment in Use Continuous SpO2 Machine # 1 Intake & Output 08/13/18 08/14/18 08/15/18 06:59 06:59 06:59 Intake Total 1084 7563 1175 Balance 0652 4370 1177 Weight 86.2 kg 88 kg General appearance: PRESENT: no acute distress, well-developed, well-nourished Head exam: PRESENT: atraumatic, normocephalic Eye exam: PRESENT: conjunctiva pink, EOMI, PERRLA. ABSENT: scleral icterus Ear exam: PRESENT: normal external ear exam Mouth exam: PRESENT: moist, tongue midline Neck exam: ABSENT: carotid bruit, JVD, lymphadenopathy, thyromegaly Respiratory exam: PRESENT: symmetrical, wheezes. ABSENT: rales, rhonchi, tachypnea, unlabored Cardiovascular exam: PRESENT: RRR, +S1, +S2. ABSENT: diastolic murmur, rubs, systolic murmur Pulses: PRESENT: normal radial pulses, normal dorsalis pedis pul Vascular exam: PRESENT: normal capillary refill GI/Abdominal exam: PRESENT: normal bowel sounds, soft. ABSENT: distended, guarding, mass, organolmegaly, rebound, tenderness Rectal exam: PRESENT: deferred Extremities exam: PRESENT: full ROM. ABSENT: calf tenderness, clubbing, pedal edema Musculoskeletal exam: PRESENT: ambulatory, full ROM Neurological exam: PRESENT: alert, awake, oriented to person, oriented to place , oriented to time, oriented to situation Psychiatric exam: PRESENT: appropriate affect, normal mood Skin exam: PRESENT: dry, intact, warm Results Laboratory Results: 08/14/18 04:14 08/13/18 21:45 08/13/18 08/14/18 21:45 04:14 WBC 15.0 H RBC 3.52 L Hgb 11.5 L Hct 33.8 L MCV 96 MCH 32.7 MCHC 34.0 RDW 13.6 Plt Count 239 Creatinine 0.53 Est GFR ( Amer) > 60 Est GFR (Non-Af Amer) > 60 Impressions: Chest X-Ray 08/11/18 03:32 IMPRESSION: Airspace process in the left inferior hemithorax concerning for a pneumonic infiltrate in the left lower lobe or lingula. A mass is considered less likely at this time. Status: Imported from PACS Assessment & Plan - Diagnosis (1) Acute respiratory failure Qualifiers: Respiratory failure complication: hypoxia Qualified Code(s): J96.01 - Acute respiratory failure with hypoxia Is this a current diagnosis for this admission?: Yes Plan: Related to asthma exacerbation stemming from LLL PNA. q4h scheduled Duoneb. q4h Xopenex PRN. Empiric antibiotic coverage for hospital acquired PNA. Scheduled IV SoluMedrol. Supplemental O2 via nasal cannula for SPO2 > 93%. BIPAP QHS PRN (2) Asthma exacerbation Qualifiers: Asthma persistence: intermittent Is this a current diagnosis for this admission?: Yes Plan: Plan as above (3) Hospital-acquired pneumonia Is this a current diagnosis for this admission?: Yes Plan: As seen on CXR. (+) LLL infiltrate. Patient was recently treated at [facility] for an asthma exacerbation. Empirically treat her for HAP with Cefepime and Vancomycin. Blood and sputum cultures pending. - Time Time Spent with patient: 15-24 minutes Medications reviewed and adjusted accordingly: Yes Anticipated discharge: Home - Inpatient Certification Based on my medical assessment, after consideration of the patient's comorbidities, presenting symptoms, or acuity I expect that the services needed warrant INPATIENT care.: Yes I certify that my determination is in accordance with my understanding of Medicare's requirements for reasonable and necessary INPATIENT services [42 CFR 412.3e].: Yes Medical Necessity: Need for IV Antibiotics, Risk of Complication if Not Cared For in Hospital - Plan Summary Plan Summary: ABX. STEROIDS. MUCINEX. NEBULIZER
--- NOTE | 2018-08-14 15:47 | RADIOLOGY REPORT (SQ) ---
EXAM DESCRIPTION: CTA CHEST COMPLETED DATE/TIME: 08/14/2018 1:47 pm REASON FOR STUDY: tachycardia and hypoxia. eval for PE. COMPARISON: Chest film 08/11/2018 TECHNIQUE: CT scan of the chest performed using helical scanning technique with dynamic intravenous contrast injection. Images reviewed with lung, soft tissue and bone windows. Reconstructed coronal and sagittal MPR images reviewed. Additional 3 dimensional post-processing performed to develop Maximal Intensity Projection images (AK P). All images stored on PACS. All CT scanners at this facility use dose modulation, iterative reconstruction, and/or weight based d osing when appropriate to reduce radiation dose to as low as reasonably achievable (ALARA). [facility]: Dose Right [facility]: CareDose [facility]: Dose Right [facility]: Teradose 4D [facility]: Opternative CONTRAST TYPE AND DOSE: contrast/concentration: Isovue 350.00 mg/ml; Total Contrast Delivered: 79.0 ml; Total Saline Delivered: 80.0 ml Contrast bolus optimized for the pulmonary arteries and thoracic aorta. RENAL FUNCTION: Creatinine 0.4 RADIATION DOSE: CT Rad equipment meets quality standard of care and radiation dose reduction techniq ues were employed. CTDIvol: 18.6 - 33.1 mGy. DLP: 753 mGy-cm. . LIMITATIONS: None. FINDINGS: LUNGS AND PLEURA: Minimal lingular airspace disease axial images 68-77 AORTA AND GREAT VESSELS: No aneurysm or thoracic aortic dissection HEART: No pericardial effusion. No significant coronary artery calcifications. PULMONARY ARTERIES: No emboli visualized in the main pulmonary arteries or the segmental branches. HILAR AND MEDIASTINAL STRUCTURES: No identified masses or abnormal nodes. HARDWARE: None in the chest. UPPER ABDOMEN: No significant findings. Limited exam. THYROID AND OTHER SOFT TISSUES: No masses. No adenopathy. BONES: No acute or significant finding. 3D MIPS: Confirm above findings. OTHER: No other significant finding. IMPRESSION: Early or developing lingular infiltrate. No pleural effusions or pneumothorax No CT angio evidence of thoracic aortic dissection or acute pulmonary emboli. COMMENT: Quality ID # [id number]: Final reports with documentation of one or more dose reduction techniques (e.g., Automated exposure control, adjustment of the mA and/or kV according to patient size, use of iterative reconstruction technique) TECHNICAL DOCUMENTATION: JOB ID: [id number] [email or web address]- All Rights Reserved Reading location - IP/workstation name: [email or web address]
[2018-08-14] MEDS: MONTELUKAST SODIUM 10 MG TABLET PO SCH (21:20)
[2018-08-15] MEDS: IPRATROPIUM/ALBUTEROL 0.5-2.5 MG/3 ML AMPUL NEB SCH ×6 (00:20→19:48)
[2018-08-15] MEDS: METHYLPREDNISOLONE INJ 125 MG/2 ML SDV IV SCH ×3 (06:16→17:21)
[2018-08-15] MEDS: VANCOMYCIN HCL 1,500 MG in DEXTROSE 5%-WATER 250 ML IV SCH ×2 (06:16→13:11)
[2018-08-15] MEDS: GUAIFENESIN 600 MG TABLET.SA PO SCH ×2 (09:58→21:47)
[2018-08-15] MEDS: CEFEPIME 2 GM/D5W RTU 2 GM/50 ML RTUPB IV SCH ×2 (09:58→21:47)
[2018-08-15] MEDS: ENOXAPARIN SODIUM INJ 40 MG/0.4 ML DISP.SYRIN SUBCUT SCH (09:58)
[2018-08-15] MEDS: MAGNESIUM SULFATE/D5W 1 GM/100 ML RTUPB IV SCH ×2 (10:48→12:02)
[2018-08-15] MEDS: SALMETEROL XINAFOATE DISKUS 50 MCG/1 DOSE 28 DOSE IH SCH ×2 (12:02→21:47)
[2018-08-15 13:48] LABS: EOSINOPHIL SMEAR NO EOSINOPHILS SEEN; SPECIMEN TYPE URINE
[2018-08-15] MEDS ORDERED: VANCOMYCIN HCL 1,250 MG in DEXTROSE 5%-WATER 250 ML IV SCH (21:00)
--- NOTE | 2018-08-15 21:22 | PDOC PROGRESS REPORT ---
Subjective Progress Note for:: 08/15/18 Subjective:: 52 y.o. F admitted to the hospital for acute asthma exacerbation and hospital- acquired pneumonia. Patient was recently treated for an asthma exacerbation at [facility] on 08/06/2018 and sent home with prescription for p.o. prednisone and albuterol treatments. She returned 08/11/2018 in acute respiratory distress and evidence of LLL PNA on CXR. The patient was seen this morning on rounds, she is resting comfortably in bed on room air. The patient was able to ambulate in the hallway on room air but she became hypoxic with an SPO2 85%. Patient endorses becoming mildly short of breath with physical exertion, but was able to catch her breath upon returning to bed. Her SPO2 and HR return to normal range once the patient is at rest once back on nasal cannula. Lungs are clear to auscultation. Patient is able to speak in full sentences without pause. Patient's lung function is improving but very slowly. Initiate Serevent inhaler and administer one dose of Mag Sulfate in an attempt to improve lung function and prevent future exacerbations. Continue broad-spectrum antibiotic coverage for hospital-acquired pneumonia. Scheduled and as needed nebulizer treatments. Scheduled IV steroids. Reason For Visit: CAP/ASTHMA EXACERBATION Physical Exam Vital Signs: Temp Pulse Resp BP Pulse Ox 97.9 F 65 16 140/69 H 95 08/15/18 19:15 08/15/18 19:49 08/15/18 19:49 08/15/18 19:15 08/15/18 19:49 Pulse Oximeter Continuous Start: 08/11/18 08: 56 Freq: RTQ4 Status: Active Document 08/15/18 19:49 CMI (Rec: 08/15/18 19:50 CMI [email or web address]) Pulse Oximetry Assessment Oxygen Saturation (92-100) 95 Oxygen Delivery Method Room Air Fraction of Inspired Oxygen (FIO2) 21 Equipment Usage Equipment in Use Continuous SpO2 Machine # 1 Intake & Output 08/14/18 08/15/18 08/16/18 06:59 06:59 06:59 Intake Total 9706 6261 5765 Output Total 1500 Balance 5783 3349 235 Weight 88 kg 90.3 kg General appearance: PRESENT: no acute distress, well-developed, well-nourished Head exam: PRESENT: atraumatic Eye exam: PRESENT: conjunctiva pink, PERRLA Mouth exam: PRESENT: moist, tongue midline Neck exam: PRESENT: full ROM Respiratory exam: PRESENT: clear to auscultation julian, symmetrical, tachypnea - with physical exertion, unlabored Cardiovascular exam: PRESENT: +S1, +S2 Pulses: PRESENT: normal radial pulses, normal dorsalis pedis pul GI/Abdominal exam: PRESENT: soft, tenderness Rectal exam: PRESENT: deferred Extremities exam: PRESENT: full ROM Musculoskeletal exam: PRESENT: ambulatory, full ROM Neurological exam: PRESENT: alert, awake, oriented to person, oriented to place , oriented to time, oriented to situation Psychiatric exam: PRESENT: appropriate affect Skin exam: PRESENT: intact, normal color Results Laboratory Results: 08/14/18 04:14 08/13/18 21:45 08/11/18 14:06 Sputum Gram Stain - Final 08/11/18 14:06 Sputum Sputum Culture - Final Streptococcus Pneumoniae Normal Raina Impressions: Chest X-Ray 08/11/18 03:32 IMPRESSION: Airspace process in the left inferior hemithorax concerning for a pneumonic infiltrate in the left lower lobe or lingula. A mass is considered less likely at this time. Chest/Abdomen CTA 08/14/18 00:00 IMPRESSION: Early or developing lingular infiltrate. No pleural effusions or pneumothorax No CT angio evidence of thoracic aortic dissection or acute pulmonary emboli. Status: Imported from PACS Assessment & Plan - Diagnosis (1) Acute respiratory failure Qualifiers: Respiratory failure complication: hypoxia Qualified Code(s): J96.01 - Acute respiratory failure with hypoxia Is this a current diagnosis for this admission?: Yes Plan: Related to asthma exacerbation stemming from LLL PNA. q4h scheduled Duoneb. q4h Xopenex PRN. Empiric antibiotic coverage for hospital acquired PNA. Scheduled IV SoluMedrol, wean from 60mg to 40mg today Supplemental O2 via nasal cannula for SPO2 > 93%. BIPAP QHS PRN (2) Asthma exacerbation Qualifiers: Asthma persistence: intermittent Is this a current diagnosis for this admission?: Yes Plan: Plan as above (3) Hospital-acquired pneumonia Is this a current diagnosis for this admission?: Yes Plan: As seen on CXR. (+) LLL infiltrate. Patient was recently treated at [facility] for an asthma exacerbation. Empirically treat her for HAP with Cefepime and Vancomycin Blood cultures negative Sputum culture (+) Step Pneumo. C&S resulted. Plan to switch to Clindamycin. - Time Time Spent with patient: 15-24 minutes Medications reviewed and adjusted accordingly: Yes Anticipated discharge: Home Within: within 24 hours - Inpatient Certification Based on my medical assessment, after consideration of the patient's comorbidities, presenting symptoms, or acuity I expect that the services needed warrant INPATIENT care.: Yes I certify that my determination is in accordance with my understanding of Medicare's requirements for reasonable and necessary INPATIENT services [42 CFR 412.3e].: Yes Medical Necessity: Risk of Complication if Not Cared For in Hospital - Plan Summary Plan Summary: CHANGE ABX FROM BROAD SPECTRUM TO CEFTRIAXONE NOW THAT C&S RESULTED. CONTINUE WITH STEROIDS AND NEBULIZER TX. AMBULATE PATIENT IN HALLWAY Q SHIFT. IF ABLE TO MAINTAIN SPO2>92% WHILE AMBULATING, PATIENT MAY BE D/C HOME.
[2018-08-15] MEDS: MONTELUKAST SODIUM 10 MG TABLET PO SCH (21:47)
[2018-08-15] MEDS ORDERED: VANCOMYCIN HCL INJ 1000 MG VIAL ONE (22:02)
[2018-08-15] MEDS ORDERED: VANCOMYCIN HCL INJ 500 MG VIAL ONE (22:03)
[2018-08-16] MEDS: METHYLPREDNISOLONE INJ 125 MG/2 ML SDV IV SCH ×2 (00:08→06:37)
[2018-08-16] MEDS: IPRATROPIUM/ALBUTEROL 0.5-2.5 MG/3 ML AMPUL NEB SCH ×6 (00:11→19:42)
[2018-08-16] MEDS ORDERED: VANCOMYCIN HCL 1,250 MG in DEXTROSE 5%-WATER 250 ML IV SCH ×2 (03:00→06:00)
[2018-08-16 04:51] LABS: HEMATOCRIT 36.1 % (36.0-47.0); HEMOGLOBIN 12.2 g/dL (12.0-15.5); MEAN CORPUSCULAR HEMOGLOBIN 32.6 pg (27.0-33.4); MEAN CORPUSCULAR HGB CONC 33.9 g/dL (32.0-36.0); MEAN CORPUSCULAR VOLUME 96 fl (80-97); PLATELET COUNT 237 10^3/uL (150-450); RED BLOOD COUNT 3.76 10^6/uL (3.72-5.28); RED CELL DISTRIBUTION WIDTH 13.8 % (11.5-14.0); WHITE BLOOD COUNT 14.9 10^3/uL (4.0-10.5)
[2018-08-16 05:17] LABS: ANION GAP 6 (5-19); BLOOD UREA NITROGEN 14 mg/dL (7-20); CALCIUM 8.9 mg/dL (8.4-10.2); CARBON DIOXIDE 29 mmol/L (22-30); CHLORIDE 103 mmol/L (98-107); GLUCOSE 122 mg/dL (75-110); PHOSPHORUS 3.1 mg/dL (2.5-4.5); POTASSIUM 4.4 mmol/L (3.6-5.0)
[2018-08-16] MEDS: ENOXAPARIN SODIUM INJ 40 MG/0.4 ML DISP.SYRIN SUBCUT SCH (09:49)
[2018-08-16] MEDS: GUAIFENESIN 600 MG TABLET.SA PO SCH ×2 (09:49→22:06)
[2018-08-16] MEDS: SALMETEROL XINAFOATE DISKUS 50 MCG/1 DOSE 28 DOSE IH SCH ×2 (09:50→22:06)
[2018-08-16] MEDS: CEFEPIME 2 GM/D5W RTU 2 GM/50 ML RTUPB IV SCH (09:50)
--- NOTE | 2018-08-16 10:41 | PDOC PROGRESS REPORT ---
Subjective Progress Note for:: 08/16/18 Subjective:: 52 y.o. F admitted to the hospital for acute asthma exacerbation and hospital- acquired pneumonia. Patient was recently treated for an asthma exacerbation at [facility] on 08/06/2018 and sent home with prescription for p.o. prednisone and albuterol treatments. She returned 08/11/2018 in acute respiratory distress and evidence of LLL PNA on CXR. 08/16/2018. No acute events overnight. Patient sitting comfortably in her bed without any supplemental oxygen. Does not seem to be in any acute distress. She states she is been p.o. tolerant and ambulatory. Endorses mild shortness of breath on exertion. Denies any fever, chills, nausea, vomiting, diarrhea, constipation or any urinary symptoms. Reason For Visit: CAP/ASTHMA EXACERBATION Physical Exam Vital Signs: Temp Pulse Resp BP Pulse Ox 98.6 F 75 17 143/96 H 96 08/16/18 07:26 08/16/18 08:03 08/16/18 08:03 08/16/18 07:26 08/16/18 08:03 Pulse Oximeter Continuous Start: 08/11/18 08: 56 Freq: RTQ4 Status: Active Document 08/16/18 08:03 HCR (Rec: 08/16/18 09:30 HCR [email or web address]) Pulse Oximetry Assessment Oxygen Saturation (92-100) 96 Oxygen Delivery Method Room Air Fraction of Inspired Oxygen (FIO2) 21 Equipment Usage Equipment in Use Continuous SpO2 Machine # 1 Intake & Output 08/15/18 08/16/18 08/17/18 06:59 06:59 06:59 Intake Total 3362 2257 244 Output Total 1900 Balance 3362 357 244 Weight 90.3 kg 90.1 kg General appearance: PRESENT: no acute distress, well-developed, well-nourished Respiratory exam: PRESENT: clear to auscultation julian, prolonged expiratory phas , wheezes - Very mild bilateral expiratory wheezes.. ABSENT: rales, rhonchi Cardiovascular exam: PRESENT: RRR. ABSENT: diastolic murmur, rubs, systolic murmur GI/Abdominal exam: PRESENT: normal bowel sounds, soft. ABSENT: distended, guarding, mass, organolmegaly, rebound, tenderness Extremities exam: PRESENT: full ROM. ABSENT: calf tenderness, clubbing, pedal edema Results Laboratory Results: 08/16/18 03:51 08/16/18 03:51 08/16/18 08/16/18 03:51 03:51 WBC 14.9 H RBC 3.76 Hgb 12.2 Hct 36.1 MCV 96 MCH 32.6 MCHC 33.9 RDW 13.8 Plt Count 237 Sodium 138.0 Potassium 4.4 Chloride 103 Carbon Dioxide 29 Anion Gap 6 BUN 14 Creatinine 0.50 L Est GFR ( Amer) > 60 Est GFR (Non-Af Amer) > 60 Glucose 122 H Calcium 8.9 Phosphorus 3.1 Magnesium 2.3 08/11/18 07:36 Blood Blood Culture - Final NO GROWTH IN 5 DAYS 08/11/18 14:06 Sputum Gram Stain - Final 08/11/18 14:06 Sputum Sputum Culture - Final Streptococcus Pneumoniae Normal Raina Impressions: Chest X-Ray 08/11/18 03:32 IMPRESSION: Airspace process in the left inferior hemithorax concerning for a pneumonic infiltrate in the left lower lobe or lingula. A mass is considered less likely at this time. Chest/Abdomen CTA 08/14/18 00:00 IMPRESSION: Early or developing lingular infiltrate. No pleural effusions or pneumothorax No CT angio evidence of thoracic aortic dissection or acute pulmonary emboli. Assessment & Plan - Diagnosis (1) Asthma exacerbation Qualifiers: Asthma persistence: intermittent Is this a current diagnosis for this admission?: Yes Plan: Likely cause due to underlying pneumonia from LLL. q4h scheduled Duoneb. q4h Xopenex PRN. Sputum culture growing strep pneumo vaughan sensitive. Day 5 of Vanco and Zosyn. DC Vanco and Zosyn. Switch to p.o. levofloxacin 750 daily Switch to p.o. prednisone 40 mg daily. She receive 4 days of IV Solu-Medrol. Supplemental O2 via nasal cannula for SPO2 > 93%. BIPAP QHS PRN (2) Community acquired pneumonia Is this a current diagnosis for this admission?: Yes Plan: Strep pneumo (+) LLL infiltrate. Switch to p.o. antibiotics. Blood cultures negative (3) Acute respiratory failure Qualifiers: Respiratory failure complication: hypoxia Qualified Code(s): J96.01 - Acute respiratory failure with hypoxia Is this a current diagnosis for this admission?: Yes Plan: Plan as above (4) History of hyperthyroidism Is this a current diagnosis for this admission?: No Plan: Started methimazole 5 mg p.o. daily. Restart home medication at discharge. Outpatient endocrinology follow-up.
[2018-08-16] MEDS: MONTELUKAST SODIUM 10 MG TABLET PO SCH (22:06)
[2018-08-17] MEDS: IPRATROPIUM/ALBUTEROL 0.5-2.5 MG/3 ML AMPUL NEB SCH ×4 (00:04→11:40)
[2018-08-17 04:51] LABS: HEMATOCRIT 34.2 % (36.0-47.0); HEMOGLOBIN 11.9 g/dL (12.0-15.5); MEAN CORPUSCULAR HEMOGLOBIN 33.2 pg (27.0-33.4); MEAN CORPUSCULAR HGB CONC 34.8 g/dL (32.0-36.0); MEAN CORPUSCULAR VOLUME 95 fl (80-97); PLATELET COUNT 224 10^3/uL (150-450); RED BLOOD COUNT 3.59 10^6/uL (3.72-5.28); RED CELL DISTRIBUTION WIDTH 13.7 % (11.5-14.0); WHITE BLOOD COUNT 13.9 10^3/uL (4.0-10.5)
[2018-08-17 05:07] LABS: ALANINE AMINOTRANSFERASE 21 U/L (9-52); ALKALINE PHOSPHATASE 63 U/L (38-126); ANION GAP 6 (5-19); ASPARTATE AMINO TRANSFERASE 16 U/L (14-36); BILIRUBIN,TOTAL 0.3 mg/dL (0.2-1.3); BLOOD UREA NITROGEN 14 mg/dL (7-20); CALCIUM 8.5 mg/dL (8.4-10.2); CARBON DIOXIDE 28 mmol/L (22-30); CHLORIDE 103 mmol/L (98-107); GLUCOSE 74 mg/dL (75-110); POTASSIUM 3.6 mmol/L (3.6-5.0); SODIUM 137.4 mmol/L (137-145); TOTAL PROTEIN 5.6 g/dL (6.3-8.2)
[2018-08-17 05:21] LABS: ABSOLUTE LYMPHOCYTES# (MANUAL) 4.4 10^3/uL (0.5-4.7); ABSOLUTE MONOCYTES # (MANUAL) 0.6 10^3/uL (0.1-1.4); ABSOLUTE NEUTROPHILS# (MANUAL) 8.6 10^3/uL (1.7-8.2); BASOPHILS % (MANUAL) 1 % (0-2); EOSINOPHILS % (MANUAL) 1 % (0-6); LYMPHOCYTES % (MANUAL) 32 % (13-45); MONOCYTES % (MANUAL) 4 % (3-13); SEGMENTED NEUTROPHILS % (MAN) 62 % (42-78); TOTAL CELLS COUNTED 100
[2018-08-17 05:22] LABS: BURR CELLS SLIGHT; POIKILOCYTOSIS SLIGHT; POLYCHROMASIA SLIGHT
[2018-08-17 05:23] LABS: PLATELET COMMENT ADEQUATE
[2018-08-17] MEDS: GUAIFENESIN 600 MG TABLET.SA PO SCH (09:51)
[2018-08-17] MEDS: ENOXAPARIN SODIUM INJ 40 MG/0.4 ML DISP.SYRIN SUBCUT SCH (09:51)
[2018-08-17] MEDS: SALMETEROL XINAFOATE DISKUS 50 MCG/1 DOSE 28 DOSE IH SCH (09:51)
[2018-08-17] MEDS ORDERED: METHIMAZOLE 5 MG TABLET PO SCH (10:00)
[2018-08-17] MEDS ORDERED: LEVOFLOXACIN 750 MG TABLET PO SCH (10:00)
[2018-08-17] MEDS ORDERED: PREDNISONE 20 MG TABLET PO SCH (10:00)
--- NOTE | 2018-08-17 10:36 | PDOC DISCHARGE SUMMARY ---
General - Admit/Disc Date/PCP Admission Date/Primary Care Provider: 08/11/18 05:41 LISA SONG, Discharge Date: 08/17/18 - Discharge Diagnosis (1) Asthma exacerbation Is this a current diagnosis for this admission?: Yes (2) HCAP (healthcare-associated pneumonia) Is this a current diagnosis for this admission?: Yes - Additional Information Prescriptions: Fluticasone/Salmeterol [Advair 100-50 Diskus 14 Dose/Diskus] 1 inh IH Q12H #1 inhaler Levofloxacin [Levaquin 750 mg Tablet] 750 mg PO DAILY #4 tablet Methimazole 5 mg PO DAILY #30 tablet Prednisone [Deltasone 20 mg Tablet] 40 mg PO DAILY #4 tablet Home Medications: Albuterol Sulfate [Proair HFA Inhalation Aerosol 8.5 gm MDI] 3 puff IH Q6HP PRN 08/11/18 Albuterol Sulfate [Ventolin 0.083% Neb 2.5 mg/3 mL Ampul] 3 ml NEB Q3HP PRN Fluticasone/Salmeterol [Advair 100-50 Diskus 14 Dose/Diskus] 1 inh IH Q12H #1 inhaler 08/17/18 Levofloxacin [Levaquin 750 mg Tablet] 750 mg PO DAILY #4 tablet 08/17/18 Methimazole 5 mg PO DAILY #30 tablet 08/17/18 Prednisone [Deltasone 20 mg Tablet] 40 mg PO DAILY #4 tablet 08/17/18 History of Present Illness History of Present Illness: JAROD KNOTT is a 52 year old female with history of bronchial asthma and hx of intubation x2 in the past presenting to the emergency room today complaining of shortness of breath with nonproductive cough and wheezing worsening over the past week, she was recently seen in this emergency department for asthma, was started on prednisone, that ran out a few days ago, she has been using nebulizer treatments at home but symptoms have worsened significantly, she has had previous hospitalizations and intubations for severe asthma, EMS has administered several breathing treatments in route as well as IV Solu-Medrol and 2 g of magnesium, they attempted to place patient on CPAP but she was unable to tolerate it in route, she does report some improvement of symptoms but continues to have severe wheezing and difficulty moving air as well as some left-sided chest pain. Hospital Course Hospital Course: Ms. Knott was admitted to the hospital for acute asthma exacerbation and hospital -acquired pneumonia. Patient was recently treated for an asthma exacerbation at [facility] on 08/06/2018 and sent home with prescription for p.o. prednisone and albuterol treatments. She returned 08/11/2018 in acute respiratory distress. Chest x-ray shows left lingular pneumonia. She was initially started on IV broad spectrum antibiotics, IV steroids and breathing treatments. She did clinically improve and was taken off O2. Her wheezing resolved and she did feel she was back at her baseline. She will be sent on oral Levaquin and oral steroids at home. he as also started on salmeterol-fluticasone for her poorly controlled asthma. She was only on albuterol prn before this. Physical Exam Vital Signs: Temp Pulse Resp BP Pulse Ox 98.5 F 61 16 128/67 H 95 08/17/18 07:35 08/17/18 07:51 08/17/18 07:51 08/17/18 07:35 08/17/18 07:51 Pulse Oximeter Continuous Start: 08/11/18 08: 56 Freq: RTQ4 Status: Active Document 08/17/18 07:51 MED (Rec: 08/17/18 07:58 MED [email or web address]) Pulse Oximetry Assessment Oxygen Saturation (92-100) 95 Oxygen Delivery Method Room Air Equipment Usage Equipment in Use Continuous SpO2 Machine # 1 Intake & Output 08/16/18 08/17/18 08/18/18 06:59 06:59 06:59 Intake Total 2257 1747 150 Output Total 1900 Balance 357 1747 150 Weight 198 lb 10.184 oz 202 lb 2.622 oz General appearance: PRESENT: no acute distress, well-developed, well-nourished Head exam: PRESENT: atraumatic, normocephalic Eye exam: PRESENT: conjunctiva pink, EOMI, PERRLA. ABSENT: scleral icterus Ear exam: PRESENT: normal external ear exam Mouth exam: PRESENT: moist, tongue midline Neck exam: ABSENT: carotid bruit, JVD, lymphadenopathy, thyromegaly Respiratory exam: PRESENT: clear to auscultation julian. ABSENT: rales, rhonchi, wheezes Cardiovascular exam: PRESENT: RRR. ABSENT: diastolic murmur, rubs, systolic murmur Pulses: PRESENT: normal dorsalis pedis pul GI/Abdominal exam: PRESENT: normal bowel sounds, soft. ABSENT: distended, guarding, mass, organolmegaly, rebound, tenderness Rectal exam: PRESENT: deferred Neurological exam: PRESENT: alert, awake, oriented to person, oriented to place , oriented to time, oriented to situation, CN II-XII grossly intact. ABSENT: motor sensory deficit Results Laboratory Results: 08/17/18 04:27 08/17/18 04:27 08/17/18 08/17/18 04:27 04:27 WBC 13.9 H RBC 3.59 L Hgb 11.9 L Hct 34.2 L MCV 95 MCH 33.2 MCHC 34.8 RDW 13.7 Plt Count 224 Seg Neutrophils % Not Reportable Lymphocytes % Not Reportable Monocytes % Not Reportable Eosinophils % Not Reportable Basophils % Not Reportable Absolute Neutrophils Not Reportable Absolute Lymphocytes Not Reportable Absolute Monocytes Not Reportable Absolute Eosinophils Not Reportable Absolute Basophils Not Reportable Sodium 137.4 Potassium 3.6 Chloride 103 Carbon Dioxide 28 Anion Gap 6 BUN 14 Creatinine 0.50 L Est GFR ( Amer) > 60 Est GFR (Non-Af Amer) > 60 Glucose 74 L Calcium 8.5 Total Bilirubin 0.3 AST 16 ALT 21 Alkaline Phosphatase 63 Total Protein 5.6 L Albumin 3.0 L 08/11/18 07:36 Blood Blood Culture - Final NO GROWTH IN 5 DAYS Impressions: Chest X-Ray 08/11/18 03:32 IMPRESSION: Airspace process in the left inferior hemithorax concerning for a pneumonic infiltrate in the left lower lobe or lingula. A mass is considered less likely at this time. Chest/Abdomen CTA 08/14/18 00:00 IMPRESSION: Early or developing lingular infiltrate. No pleural effusions or pneumothorax No CT angio evidence of thoracic aortic dissection or acute pulmonary emboli. Qualifiers - * PATIENT BEING DISCHARGED WITH ANY OF THE FOLLOWING DIAGNOSIS: No
[2018-08-17] MEDS ORDERED: FLUTICASONE/SALMETEROL DISKUS 100-50 MCG/DOSE IH SCH (11:30)
[2018-08-17 12:34] VITALS: BP 130/75
== END 2018-08-17 14:30 | disposition home or self-care (01) | DRG 194 ==
LOC: ER 03:25 → EH 05:41 → 3N 07:48 → 3S 08-16 04:12 → 3N 08-16 13:46
PROVIDERS: ADMIT Internal Medicine; ATTEND Internal Medicine
PROC: 5A09457 Assistance with Respiratory Ventilation, 24-96 Consecutive Hours, Continuous Positive Airway Pressure (ICD-10-PCS; principal; 2018-08-11)
PROC: 3E02340 Introduction of Influenza Vaccine into Muscle, Percutaneous Approach (ICD-10-PCS; 2018-08-17)
DX: J18.9 Pneumonia, unspecified organism (principal); J45.21 Mild intermittent asthma with (acute) exacerbation; E05.90 Thyrotoxicosis, unspecified without thyrotoxic crisis or storm; Z79.51 Long term (current) use of inhaled steroids; Z82.49 Family history of ischemic heart disease and other diseases of the circulatory system; Z82.5 Family history of asthma and other chronic lower respiratory diseases; Z23 Encounter for immunization
CPT/HCPCS: 36415; 36600; 71045; 71275; 80048; 80053; 80202; 82565; 82803; 83735; 84100; 84484; 85025; 85027; 87040; 87070; 87077; 87186; 87205; 89190; 90686; 93005; 93010; 94640; 94660; 94762; 94799; 96365; 96368; 96375; 96376; 99291; J0456; J0692; J0696; J1650; J2270; J2550; J2930; J3370; J3475; J3490; J7030; J7060; J7512; J7620

== ENCOUNTER → 2019-03-15 | Outpatient (CLI) | payer OTHER | LOC: CCC 10:42 | DX: E05.00 Thyrotoxicosis with diffuse goiter without thyrotoxic crisis or storm (principal) | CPT/HCPCS: 36415; 84443 ==

== ENCOUNTER → 2019-07-08 | Outpatient (CLI) | payer OTHER ==
--- NOTE | 2019-07-08 13:35 | RADIOLOGY REPORT (SQ) ---
EXAM DESCRIPTION: HAND LEFT 2 VIEWS COMPLETED DATE/TIME: 07/08/2019 1:04 pm REASON FOR STUDY: PAIN IN LEFT HAND E06.9 THYROIDITIS, UNSPECIFIED I10 ESSENTIAL (PRIMARY) HYPERTE NSION COMPARISON: 08/05/2014 EXAM PARAMETERS: NUMBER OF VIEWS: Two view. TECHNIQUE: AP and lateral radiographic images acquired of the left hand. LIMITATIONS: None. FINDINGS: MINERALIZATION: Normal. BONES: No acute fracture or dislocation. No worrisome bone lesions. JOINTS: No effusions. SOFT TISSUES: No soft tissue swelling. No foreign body. OTHER: No other significant finding. IMPRESSION: NEGATIVE STUDY OF THE LEFT HAND. NO RADIOGRAPHIC EVIDENCE OF ACUTE INJURY. TECHNICAL DOCUMENTATION: JOB ID: [id number] [email or web address]- All Rights Reserved Reading location - IP/workstation name: [email or web address]
[2019-07-08 14:11] LABS: ABSOLUTE EOSINOPHILS # (AUTO) 0.1 10^3/uL (0.0-0.6); ABSOLUTE LYMPHOCYTES (AUTO) 1.4 10^3/uL (0.5-4.7); ABSOLUTE MONOCYTES (AUTO) 0.3 10^3/uL (0.1-1.4); ABSOLUTE NEUT (AUTO) 2.2 10^3/uL (1.7-8.2); BASOPHILS % (AUTO) 0.2 % (0-2); EOSINOPHILS % (AUTO) 1.9 % (0-6); HEMOGLOBIN 12.9 g/dL (12.0-15.5); MEAN CORPUSCULAR HEMOGLOBIN 31.2 pg (27.0-33.4); MEAN CORPUSCULAR VOLUME 92 fl (80-97); MONOCYTES % (AUTO) 7.4 % (3-13); PLATELET COUNT 238 10^3/uL (150-450); RED BLOOD COUNT 4.14 10^6/uL (3.72-5.28); RED CELL DISTRIBUTION WIDTH 12.6 % (11.5-14.0); SEGMENTED NEUTROPHILS % (AUTO) 55.5 % (42-78); TOTAL CELLS COUNTED % (AUTO) 100 %
[2019-07-08 14:19] LABS: ALBUMIN 4.2 g/dL (3.5-5.0); ALKALINE PHOSPHATASE 79 U/L (38-126); ANION GAP 6 (5-19); ASPARTATE AMINO TRANSFERASE 26 U/L (14-36); BILIRUBIN,DIRECT 0.1 mg/dL (0.0-0.4); BILIRUBIN,TOTAL 0.6 mg/dL (0.2-1.3); BLOOD UREA NITROGEN 9 mg/dL (7-20); CALCIUM 9.1 mg/dL (8.4-10.2); CARBON DIOXIDE 28 mmol/L (22-30); CHLORIDE 105 mmol/L (98-107); GLUCOSE 90 mg/dL (75-110); TOTAL PROTEIN 7.1 g/dL (6.3-8.2); TRIGLYCERIDES 55 mg/dL (<150)
[2019-07-08 14:39] LABS: DIRECT LDL 109 mg/dL (<100)
== END ==
LOC: CCC 12:28
DX: M79.642 Pain in left hand (principal); E06.9 Thyroiditis, unspecified; I10 Essential (primary) hypertension
CPT/HCPCS: 36415; 80053; 80061; 83036; 84443; 85025

== ENCOUNTER 2019-10-07 20:29 | Emergency (ER) | payer SELFPAY ==
[2019-10-07] MEDS ORDERED: IPRATROPIUM/ALBUTEROL 0.5-2.5 MG/3 ML AMPUL NEB ONE ×2 (20:37→20:54)
[2019-10-07] MEDS ORDERED: MAGNESIUM SULFATE/D5W 2 GM/200 ML RTUPB IV ONE (20:38)
[2019-10-07] MEDS: MAGNESIUM SULFATE/D5W 1 GM/100 ML RTUPB IV SCH ×2 (20:49→21:10)
[2019-10-07 21:29] LABS: ABSOLUTE EOSINOPHILS # (AUTO) 0.1 10^3/uL (0.0-0.6); ABSOLUTE LYMPHOCYTES (AUTO) 1.6 10^3/uL (0.5-4.7); ABSOLUTE MONOCYTES (AUTO) 0.4 10^3/uL (0.1-1.4); ABSOLUTE NEUT (AUTO) 3.4 10^3/uL (1.7-8.2); BASOPHILS % (AUTO) 0.1 % (0-2); HEMATOCRIT 35.4 % (36.0-47.0); HEMOGLOBIN 11.8 g/dL (12.0-15.5); LYMPHOCYTES % (AUTO) 29.5 % (13-45); MEAN CORPUSCULAR HEMOGLOBIN 29.6 pg (27.0-33.4); MEAN CORPUSCULAR HGB CONC 33.5 g/dL (32.0-36.0); MEAN CORPUSCULAR VOLUME 88 fl (80-97); MONOCYTES % (AUTO) 7.1 % (3-13); PLATELET COUNT 210 10^3/uL (150-450); RED CELL DISTRIBUTION WIDTH 12.3 % (11.5-14.0); SEGMENTED NEUTROPHILS % (AUTO) 62.3 % (42-78); TOTAL CELLS COUNTED % (AUTO) 100 %; WHITE BLOOD COUNT 5.5 10^3/uL (4.0-10.5)
[2019-10-07 21:48] LABS: ALBUMIN 3.8 g/dL (3.5-5.0); ALKALINE PHOSPHATASE 87 U/L (38-126); ANION GAP 7 (5-19); ASPARTATE AMINO TRANSFERASE 29 U/L (14-36); BILIRUBIN,DIRECT 0.1 mg/dL (0.0-0.4); BILIRUBIN,TOTAL 0.5 mg/dL (0.2-1.3); BLOOD UREA NITROGEN 10 mg/dL (7-20); CALCIUM 9.7 mg/dL (8.4-10.2); CARBON DIOXIDE 25 mmol/L (22-30); CHLORIDE 105 mmol/L (98-107); GLUCOSE 106 mg/dL (75-110); POTASSIUM 4.2 mmol/L (3.6-5.0); TOTAL PROTEIN 6.7 g/dL (6.3-8.2)
--- NOTE | 2019-10-07 22:03 | RADIOLOGY REPORT (SQ) ---
EXAM DESCRIPTION: XR CHEST 1 VIEW COMPLETED DATE/TME: 10/07/2019 20:54 CLINICAL HISTORY: 53 years, Female, db COMPARISON: 08/11/2018 chest NUMBER OF VIEWS: 1 TECHNIQUE: Portable chest LIMITATIONS: None. FINDINGS: Heart size normal. Lungs clear. No pneumothorax IMPRESSION: Negative chest copyright 2010 [employer]- All Rights Reserved
--- NOTE | 2019-10-08 00:01 | ER Document Report ---
ED General - General Chief Complaint: Breathing Difficulty Stated Complaint: DIFFICULTY BREATHING Time Seen by Provider: 10/07/19 21:05 Primary Care Provider: LISA SONG DO [NO LOCAL MD] - Follow up as needed Information source: Patient Notes: 53-year-old woman presents with respiratory distress, asthma exacerbation. She was at work and the area where she works was sprayed with an insecticide she feels that this triggered her asthma. EMS was called she was given breathing treatments, albuterol nebulizer treatments, Solu-Medrol 125 mg, Zofran 4 mg IV. She is improved, however fatigued and somewhat distressed emotionally. She denies chest pain, palpitations or dizziness. She continues to have some mild wheezing. Shortly after arrival, the patient began to have increased respiratory distress, tripoding, accessory muscle movement and work of breathing. DuoNebs, 2 g of IV magnesium were given in the emergency department with improvement noted. TRAVEL OUTSIDE OF THE [place] IN LAST 30 DAYS: No - Related Data Allergies/Adverse Reactions: No Known Allergies Allergy (Verified 10/07/19 21:39) Home Medications: Albuterol Past Medical History - Social History Smoking Status: Former Smoker Frequency of alcohol use: Social Drug Abuse: None Family History: Hypertension, Other - asthma, Patient has suicidal ideation: No Patient has homicidal ideation: No Pulmonary Medical History: Reports: Hx Asthma Denies: Hx Tuberculosis Endocrine Medical History: Reports: Hx Hyperthyroidism Renal/ Medical History: Denies: Hx Peritoneal Dialysis Psychiatric Medical History: Denies: Hx Depression Past Surgical History: Reports: Hx Abdominal Surgery - UMBILICAL HERNIA REPAIR, Hx Umbilical Hernia - Immunizations Immunizations up to date: Yes Hx Diphtheria, Pertussis, Tetanus Vaccination: Yes Hx Pneumococcal Vaccination: 03/25/14 Review of Systems - Review of Systems Notes: Constitutional: Negative for fever. HENT: Negative for sore throat. Eyes: Negative for visual changes. Cardiovascular: Negative for chest pain. Respiratory: + Shortness of breath, + wheezing Gastrointestinal: Negative for abdominal pain, vomiting or diarrhea. Genitourinary: Negative for dysuria. Musculoskeletal: Negative for back pain. Skin: Negative for rash. Neurological: Negative for headaches, weakness or numbness. 10 point ROS negative except as marked above and in HPI. Physical Exam - Vital signs Vitals: Temp Pulse Resp BP Pulse Ox 96 F L 108 H 19 160/77 H 97 10/07/19 20:29 10/07/19 20:29 10/07/19 20:29 10/07/19 20:29 10/07/19 20:29 Interpretation: Normal - Notes Notes: PHYSICAL EXAMINATION: Physical Exam: General: Well-nourished well-developed female in mild acute distress HEENT: NC/AT, pupils equal round and reactive to light, MM moist,nares clear, Neck: supple, no adenopathy, no masses. Lungs: mild wheezing, no rales no rhonchi CVS: Tachycardic rate and rhythm no murmur gallop or rub Abdomen: Soft active nontender, no masses, no hepatosplenomegaly Ext: No edema clubbing or cyanosis. Neuro: Alert and responsive, moving all 4 extremities on command, cranial nerves intact. Skin: Intact no open lesions, no rash PSYCH: Anxious Course - Re-evaluation Re-evalutation: 10/07/19 23:00 Approximately 1 hour after arrival the patient began having respiratory distress tripoding and using accessory muscle respiration. Nurse notes patient distress. Agree that IV magnesium and further nebulizer treatments are needed. Patient is given medication and had a good result in improvement. - Vital Signs Vital signs: Temp Pulse Resp BP Pulse Ox 97.6 F 108 H 20 103/46 L 94 10/07/19 23:01 10/07/19 20:29 10/07/19 23:01 10/07/19 23:01 10/07/19 23:01 - Laboratory Result Diagrams: 10/07/19 21:20 10/07/19 21:20 Laboratory results interpreted by me: 10/07/19 10/07/19 21:20 21:20 Hgb 11.8 L Hct 35.4 L Creatinine 0.36 L I have reviewed laboratory data and used this information for the treatment decisions regarding the patient. - Diagnostic Test Radiology reviewed: Image reviewed, Reports reviewed - Chest x-ray: No acute infiltrate or effusion Discharge - Discharge Clinical Impression: Asthma exacerbation Qualifiers: Asthma severity: moderate Asthma persistence: unspecified Qualified Code(s): J45.901 - Unspecified asthma with (acute) exacerbation Condition: Good Disposition: HOME, SELF-CARE Additional Instructions: You were seen for an asthma exacerbation. Your symptoms improved with treatment here in the emergency department. However, it is very important that you return to the emergency department immediately if you began to have worsening difficulty breathing that does not respond to your normal home nebulizers. You are also being sent home on a five-day course of steroids that you should start taking tomorrow. Please also follow closely with your primary care physician. you should also return to emergency department if you develop fever greater than 101, persistent cough, persistent vomiting, pass out, or any other symptoms that are concerning to you. Prescriptions: Prednisone [Deltasone 20 mg Tablet] 1 tab PO BID 5 Days #10 tablet Referrals: LISA SONG DO [NO LOCAL MD] - Follow up as needed
[2019-10-08 02:07] VITALS: BP 103/46
--- NOTE | 2019-10-08 07:42 | EKG REPORT ---
SEVERITY:- NORMAL ECG - SINUS RHYTHM : Confirmed by: Jm Brandon MD 08-Oct-2019 07:41:59
== END 2019-10-08 00:04 | disposition home or self-care (01) ==
LOC: ER 20:29
DX: J45.901 Unspecified asthma with (acute) exacerbation (principal); R53.83 Other fatigue
CPT/HCPCS: 93005; 94640; 99285; 96365; 36415; 85025; 80053; 71045; 93010; J3475; J7620

== ENCOUNTER 2019-12-19 17:32 | Inpatient (IN) | payer SELFPAY ==
[2019-12-19] MEDS ORDERED: IPRATROPIUM/ALBUTEROL 0.5-2.5 MG/3 ML AMPUL NEB ONE ×2 (17:59)
[2019-12-19] MEDS ORDERED: METHYLPREDNISOLONE INJ 125 MG/2 ML SDV IM ONE (17:59)
--- NOTE | 2019-12-19 18:02 | ER Document Report ---
ED Medical Screen (RME) - General Chief Complaint: Asthma Exacerbation Stated Complaint: DIFFICULTY BREATHING Time Seen by Provider: 12/19/19 17:56 TRAVEL OUTSIDE OF THE [place] IN LAST 30 DAYS: No - HPI Notes: 12/19/19 18:00 Patient is a 54-year-old female with history of asthma who presents complaint nasal congestion is discharge, cough, intermittent fever over the past week. Patient states that her asthma has been significantly flared over the past couple days and she has been having shortness of breath and dyspnea as well as wheezing throughout. Denies drug allergies. Charge nurse notified for bed. Treatment started in triage room. I have treated and performed a rapid initial assessment of this patient. A comprehensive ED assessment and evaluation of the patient, analysis of test results and completion of medical decision making process will be conducted by additional ED providers. PHYSICAL EXAMINATION: GENERAL: Patient in moderate respiratory distress. Not able to speak in comple te sentences. Lungs: Harsh constant dry cough noted. Wheezing throughout. Pursed lip breathing. Heart: Tachycardic into the 150s. Regular rate and rhythm otherwise. - Related Data Allergies/Adverse Reactions: No Known Allergies Allergy (Verified 10/07/19 21:39) Past Medical History - Social History Frequency of alcohol use: None Drug Abuse: None Pulmonary Medical History: Reports: Hx Asthma Denies: Hx Tuberculosis Endocrine Medical History: Reports: Hx Hyperthyroidism Renal/ Medical History: Denies: Hx Peritoneal Dialysis Psychiatric Medical History: Denies: Hx Depression Past Surgical History: Reports: Hx Abdominal Surgery - UMBILICAL HERNIA REPAIR, Hx Umbilical Hernia - Immunizations Immunizations up to date: Yes Hx Diphtheria, Pertussis, Tetanus Vaccination: Yes Physical Exam - Vital signs Vitals: Temp Pulse Resp BP Pulse Ox 98.7 F 226 H 20 104/59 L 95 12/19/19 17:54 12/19/19 17:54 12/19/19 17:54 12/19/19 17:54 12/19/19 17:54 Course - Vital Signs Vital signs: Temp Pulse Resp BP Pulse Ox 98.7 F 226 H 20 104/59 L 95 12/19/19 17:54 12/19/19 17:54 12/19/19 17:54 12/19/19 17:54 12/19/19 17:54
[2019-12-19] MEDS ORDERED: DEXAMETHASONE SOD PHOS INJ 10 MG/1 ML VIAL IV ONE (18:10)
[2019-12-19] MEDS ORDERED: MORPHINE SULFATE 10 MG/ML INJ IV ONE (18:11)
[2019-12-19] MEDS ORDERED: ONDANSETRON HCL INJ/PF 4 MG/2 ML SDV IV ONE (18:11)
[2019-12-19] MEDS: MAGNESIUM SULFATE/D5W 1 GM/100 ML RTUPB IV SCH ×2 (18:28→19:10)
--- NOTE | 2019-12-19 18:30 | ER Document Report ---
ED General - General Chief Complaint: Asthma Exacerbation Stated Complaint: DIFFICULTY BREATHING Time Seen by Provider: 12/19/19 17:56 Mode of Arrival: Ambulatory Information source: Patient Notes: 54-year-old female arrives with chief complaint of 1 week history of upper respiratory tract infection nasal congestion cough and cold symptoms. She reports her granddaughter had the flu recently and she works at [employer]. Patient arrives in respiratory distress with tachypnea and tripoding and 0-1 word sentences. When I evaluated this patient at 1810 patient was in mild respiratory distress with breathing treatment being ordered by Ja Andrade patient does not meet any exclusion criteria for TPA at this time. I have reviewed the risks and benefits of administration of TPA with the family at the bedside. We have reviewed the risks of intracranial bleed and the possible benefits of increased functional independence at 90 days with the use of TPA.. Patient received Solu-Medrol as well as 2 g of magnesium and also morphine 4 and Zofran 4 for air hunger. Patient reports she has had these medicines in the past. She is taking [id number] Mucinex as well as her prescription of methimazole. Patient reports she is had thyroid disease since 2006. Also has hand-held nebulizer as well as a box of albuterol Nebules for her nebulizer machine. Patient reports while working at [employer] she is next to the window and exposed to cold air and therefore also complains of left earache for 1 week TRAVEL OUTSIDE OF THE [place] IN LAST 30 DAYS: No - HPI Onset: Other - x 1week Onset/Duration: Worse Quality of pain: Fullness Severity: Severe Pain Level: 5 Associated symptoms: Hurts to breath, Shortness of breath Exacerbated by: Movement, Walking, Coughing, Deep breathing Relieved by: Denies Similar symptoms previously: Yes Recently seen / treated by doctor: No - Related Data Allergies/Adverse Reactions: No Known Allergies Allergy (Verified 10/07/19 21:39) Past Medical History - General Information source: Patient, Relative - Patient's son Ja - Social History Smoking Status: Unknown if Ever Smoked Cigarette use (# per day): No Chew tobacco use (# tins/day): No Smoking Education Provided: No Frequency of alcohol use: None Drug Abuse: None Lives with: Family Family History: Hypertension, Other - asthma, Patient has suicidal ideation: No Patient has homicidal ideation: No Pulmonary Medical History: Reports: Hx Asthma Denies: Hx Tuberculosis Endocrine Medical History: Reports: Hx Hyperthyroidism Renal/ Medical History: Denies: Hx Peritoneal Dialysis Psychiatric Medical History: Denies: Hx Depression Past Surgical History: Reports: Hx Abdominal Surgery - UMBILICAL HERNIA REPAIR, Hx Umbilical Hernia - Immunizations Immunizations up to date: Yes Hx Diphtheria, Pertussis, Tetanus Vaccination: Yes Hx Pneumococcal Vaccination: 03/25/14 Review of Systems - Review of Systems Constitutional: See HPI, Fever, Malaise EENT: See HPI, Nose congestion, Throat pain Cardiovascular: See HPI, Chest pain, Palpitations, Heart racing, Orthopnea, Dyspnea, Dizziness, Lightheaded Respiratory: See HPI, Cough, Hurts to breathe, Short of breath, Wheezing Gastrointestinal: No symptoms reported Genitourinary: No symptoms reported Female Genitourinary: No symptoms reported Musculoskeletal: No symptoms reported Skin: No symptoms reported Hematologic/Lymphatic: No symptoms reported Neurological/Psychological: No symptoms reported Physical Exam - Vital signs Vitals: Temp Pulse Resp BP Pulse Ox 98.7 F 226 H 20 104/59 L 95 12/19/19 17:54 12/19/19 17:54 12/19/19 17:54 12/19/19 17:54 12/19/19 17:54 Interpretation: Hypotensive, Tachypneic - General General appearance: Anxious In distress: Severe - HEENT Head: Normocephalic Eyes: Normal Conjunctiva: Normal Cornea: Normal Extraocular movements intact: Yes Eyelashes: Normal Pupils: PERRL Sinus: Normal Nasal: Normal Mouth/Lips: Other - Pursed lips breathing Pharynx: Normal Neck: Thyromegally - Respiratory Respiratory status: Respiratory distress, Labored Chest status: Nontender Breath sounds: Decreased air movement, Wheezing Chest palpation: Normal - Cardiovascular Rhythm: Tachycardia Heart sounds: Normal auscultation Murmur: No Friction rub: No Romulo's crunch: No - Actually excellent idea - Abdominal Inspection: Normal Distension: No distension Bowel sounds: Normal Tenderness: Nontender Organomegaly: No organomegaly - Back Back: Normal - Extremities General upper extremity: Normal inspection General lower extremity: Normal inspection - Neurological Neuro grossly intact: Yes Cognition: Normal Orientation: AAOx4 [place] Coma Scale Eye Opening: Spontaneous Aimee Coma Scale Verbal: Oriented [place] Coma Scale Motor: Obeys Commands Aimee Coma Scale Total: 15 Speech: Normal Cranial nerves: Normal Cerebellar coordination: Normal Motor strength normal: LUE, RUE, LLE, RLE - Psychological Associated symptoms: Anxious - Skin Skin Temperature: Warm Skin Moisture: Dry Course - Vital Signs Vital signs: Temp Pulse Resp BP Pulse Ox 98.5 F 226 H 23 H 134/71 H 99 12/19/19 19:18 12/19/19 17:54 12/19/19 19:04 12/19/19 19:04 12/19/19 19:46 - Laboratory Result Diagrams: 12/19/19 18:32 12/19/19 18:32 Laboratory results interpreted by me: 12/19/19 18:32 Sodium 136.9 L BUN 6 L Creatinine 0.32 L Glucose 74 L AST 53 H Critical Care Note - Critical Care Note Total time excluding time spent on procedures (mins): 90 Comments: Please note patient's heart rate decreased to 106 at discharge and patient feels much improved after Ativan patient reports she was having some panic attack when her heart rate was at 225. She denies any breathing difficulty at this time but does complain of earache on her left and this was checked revealing a serous TM... I re examined nspected her at 2009 and she was much improved. Discharge - Discharge Clinical Impression: Asthma exacerbation Qualifiers: Asthma severity: unspecified severity Asthma persistence: persistent Qualified Code(s): J45.901 - Unspecified asthma with (acute) exacerbation Acute serous otitis media, left ear Qualifiers: Recurrence: non-recurrent Qualified Code(s): H65.02 - Acute serous otitis media, left ear Condition: Serious Disposition: HOME, SELF-CARE Additional Instructions: Follow-up with personal doctor return to ER as needed and return to ER if symptoms persist or exacerbate. Off work for 5 days from your [employer] job and take medicines as directed encourage fluids Prescriptions: Hydrocodone Bit/Homatropine [Hycodan Syrup 5-1.5 mg/5 ml Ud Cup] 5 ml PO Q4HP PRN #120 ml PRN Reason: Lorazepam [Ativan 1 mg Tablet] 1 mg PO HSP PRN #5 tablet PRN Reason: Mupirocin [Bactroban 2% Ointment 22 gm] 1 applic NASL HSP PRN #1 tube PRN Reason: Dexamethasone [Decadron 4 Mg Tablet] 4 mg PO BID #8 tablet Azithromycin [Zithromax 250 mg Tablet] 250 mg PO ASDIR PRN #6 tablet PRN Reason: Forms: Return to Work
[2019-12-19] MEDS ORDERED: LORAZEPAM INJ 2 MG/1 ML VIAL IV ONE (18:33)
[2019-12-19] MEDS ORDERED: DICYCLOMINE HCL INJ 20 MG/2 ML AMPULE IM ONE (18:33)
--- NOTE | 2019-12-19 18:45 | RADIOLOGY REPORT (SQ) ---
EXAM DESCRIPTION: CHEST SINGLE VIEW COMPLETED DATE/TIME: 12/19/2019 6:27 pm REASON FOR STUDY: cough/sob COMPARISON: 10/07/2019 TECHNIQUE: Single frontal radiographic view of the chest acquired. NUMBER OF VIEWS: One view. LIMITATIONS: None. FINDINGS: LUNGS AND PLEURA: No pneumothorax. No consolidation or pleural effusion. MEDIASTINUM AND HILAR STRUCTURES: Stable. HEART AND VASCULAR STRUCTURES: Stable. BONES: No acute findings. HARDWARE: None in the chest. OTHER: No other significant finding. IMPRESSION: NO ACUTE FINDINGS. TECHNICAL DOCUMENTATION: JOB ID: [id number] [id number] 2010 [employer]- All Rights Reserved Reading location - IP/workstation name: [employer]
[2019-12-19 19:04] LABS: ABSOLUTE LYMPHOCYTES (AUTO) 1.1 10^3/uL (0.5-4.7); ABSOLUTE MONOCYTES (AUTO) 0.5 10^3/uL (0.1-1.4); ABSOLUTE NEUT (AUTO) 2.6 10^3/uL (1.7-8.2); BASOPHILS % (AUTO) 0.1 % (0-2); EOSINOPHILS % (AUTO) 1.1 % (0-6); HEMATOCRIT 36.6 % (36.0-47.0); HEMOGLOBIN 12.8 g/dL (12.0-15.5); LYMPHOCYTES % (AUTO) 27.1 % (13-45); MEAN CORPUSCULAR HEMOGLOBIN 29.7 pg (27.0-33.4); MEAN CORPUSCULAR HGB CONC 34.9 g/dL (32.0-36.0); MEAN CORPUSCULAR VOLUME 85 fl (80-97); MONOCYTES % (AUTO) 10.7 % (3-13); PLATELET COUNT 241 10^3/uL (150-450); RED CELL DISTRIBUTION WIDTH 12.8 % (11.5-14.0); TOTAL CELLS COUNTED % (AUTO) 100 %; WHITE BLOOD COUNT 4.2 10^3/uL (4.0-10.5)
[2019-12-19 19:29] LABS: ALBUMIN 4.1 g/dL (3.5-5.0); ALKALINE PHOSPHATASE 102 U/L (38-126); ANION GAP 13 (5-19); ASPARTATE AMINO TRANSFERASE 53 U/L (14-36); BILIRUBIN,DIRECT 0.3 mg/dL (0.0-0.4); BILIRUBIN,TOTAL 0.5 mg/dL (0.2-1.3); BLOOD UREA NITROGEN 6 mg/dL (7-20); CALCIUM 9.8 mg/dL (8.4-10.2); CARBON DIOXIDE 22 mmol/L (22-30); CHLORIDE 102 mmol/L (98-107); GLUCOSE 74 mg/dL (75-110); POTASSIUM 4.6 mmol/L (3.6-5.0); TOTAL PROTEIN 7.3 g/dL (6.3-8.2)
[2019-12-19 20:11] LABS: VENOUS BLOOD BASE EXCESS -1.3 mmol/L; VENOUS BLOOD HCO3 25.6 mmol/L (20-32); VENOUS BLOOD PCO2 51.8 mmHg (35-63); VENOUS BLOOD PH 7.31 (7.30-7.42)
[2019-12-19 21:13] LABS: A TYPE INFLUENZA AG NEGATIVE (NEGATIVE); B INFLUENZA AG NEGATIVE (NEGATIVE)
--- NOTE | 2019-12-19 22:00 | EKG REPORT ---
SEVERITY:- NORMAL ECG - SINUS RHYTHM : Confirmed by: Liv Donnelly MD 19-Dec-2019 21:59:58
[2019-12-19] MEDS ORDERED: ALBUTEROL SULFATE 0.083% NEB 2.5 MG/3 ML AMPUL NEB ONE (22:34)
[2019-12-19] MEDS ORDERED: LEVALBUTEROL HCL NEB 0.63 MG/3 ML AMPUL NEB PRN (22:35)
[2019-12-19] MEDS ORDERED: TEMAZEPAM 15 MG CAPSULE PO PRN (22:35)
[2019-12-19] MEDS ORDERED: MAGNESIUM HYDROXIDE SUSP 30 ML UDCUP PO PRN (22:35)
[2019-12-19] MEDS ORDERED: MAG HYDROX/AL HYDROX/SIMETH SUSP 30 ML UDCUP PO PRN (22:35)
[2019-12-19] MEDS ORDERED: MORPHINE SULFATE 10 MG/ML INJ IV PRN (22:40)
[2019-12-19] MEDS ORDERED: ACETAMINOPHEN 325 MG TABLET PO PRN (22:40)
[2019-12-19] MEDS ORDERED: IBUPROFEN 800 MG TABLET PO PRN (22:40)
[2019-12-19] MEDS ORDERED: LORAZEPAM INJ 2 MG/1 ML VIAL IV PRN (22:40)
[2019-12-19 22:56] LABS: FREE T4 (FREE THYROXINE) 4.62 ng/dL (0.78-2.19)
[2019-12-19 23:11] LABS: THYROID STIMULATING HORMONE < 0.01 uIU/mL (0.47-4.68)
[2019-12-19] MEDS: METHYLPREDNISOLONE INJ 40 MG/1 ML SDV IV SCH (23:12)
[2019-12-19] MEDS: FAMOTIDINE 20 MG TABLET PO SCH (23:13)
[2019-12-19] MEDS: GUAIFENESIN SYRP 200 MG/10 ML UDC PO PRN (23:16)
[2019-12-19] MEDS: RINGERS SOLUTION,LACTATED 1,000 ML IV PRN (23:18)
[2019-12-20] MEDS: IPRATROPIUM BROMIDE 0.02% NEB 0.5 MG/2.5 ML AMPUL NEB SCH ×3 (00:05→16:41)
[2019-12-20] MEDS: LEVALBUTEROL HCL NEB 1.25 MG/3 ML AMPUL NEB SCH ×3 (00:05→16:41)
[2019-12-20] MEDS: ONDANSETRON HCL INJ/PF 4 MG/2 ML SDV IV PRN ×2 (00:09→04:45)
[2019-12-20] MEDS: RINGERS SOLUTION,LACTATED 1,000 ML IV PRN ×4 (04:38→21:25)
[2019-12-20] MEDS: METHYLPREDNISOLONE INJ 40 MG/1 ML SDV IV SCH ×3 (05:27→21:18)
--- NOTE | 2019-12-20 05:35 | PDOC H&P ---
History of Present Illness Admission Date/PCP: 12/19/2019 21:45 Dr. Maxim Roca DO Patient complains of: Asthma History of Present Illness: JAROD MOON is a 54 year old female who presented to the emergency room with a one-week history of asthma symptoms. Patient admits progressively worsening asthma symptoms of wheezing, dyspnea worsened by exertion and air hunger over the last week. Her symptoms have become extremely severe today, are not responding to her home nebulizer treatments thus resulting in her presentation to the ER. Her asthma symptoms have been accompanied by upper respiratory infection syndrome symptoms including nasal congestion, sore throat and a left earache. Her asthma symptoms have been associated with chest pain/soreness, rapid palpitations, orthopnea, lightheadedness and a nonproductive cough. She denies other accompanying or associated signs and symptoms. She admits numerous prior similar episodes due to asthma exacerbations. She denies identification of any additional aggravating or ameliorating factors for her asthma symptoms. In the emergency room she was found to be markedly tachypneic, tachycardic and in severe respiratory distress with acute hypoxic respiratory failure. She was treated with intravenous steroids and magnesium sulfate. She received multiple nebulizer treatments and supplemental oxygen. She improved over the course of her treatment in ER but continued to have hypoxia with exertion and was subsequently admitted observation status for further evaluation and treatment. Past Medical History Cardiac Medical History: Denies: Atrial Fibrillation, Congestive Heart Failure, Coronary Artery Disease, DVT, Myocardial Infarction, Hyperlipidema, Hypertension, Peripheral Vascular Disease, Pulmonary Embolism Pulmonary Medical History: Reports: Asthma, Bronchitis, Intubation, Pneumonia, Respiratory Failure Denies: Chronic Obstructive Pulmonary Disease (COPD), Tuberculosis EENT Medical History: Denies: Cataracts, Ears - Hearing aids Neurological Medical History: Denies: Hemorrhagic CVA, Ischemic CVA, Seizures Endocrine Medical History: Reports: Hyperthyroidism Denies: Diabetes Mellitus Type 1, Diabetes Mellitus Type 2, Hypothyroidism Renal/ Medical History: Denies: Chronic Kidney Disease, Nephrolithiasis Malignancy Medical History: Reports: None GI Medical History: Denies: Cirrhosis, Crohn's Disease, Gastroesophageal Reflux Disease, Hepatitis, Peptic Ulcer Disease, Ulcerative Colitis Musculoskeltal Medical History: Denies: Arthritis, Gout Skin Medical History: Denies: Eczema, Psoriasis Psychiatric Medical History: Denies: Alcohol Dependency, Depression, Substance Abuse, Tobacco Dependency Traumatic Medical History: Reports: None Hematology: Denies: Anemia, Bleeding Tendencies Infectious Medical History: Reports: None Past Surgical History Past Surgical History: Reports: Herniorrhaphy - Umbilical herniorrhaphy Social History Information Source: Patient Lives with: Family Smoking Status: Never Smoker Electronic Cigarette use?: No Frequency of Alcohol Use: None Hx Recreational Drug Use: No Drugs: None Hx Prescription Drug Abuse: No - Advance Directive Resuscitation Status: Full Code Surrogate healthcare decision maker:: Adrián Recinos Family History Family History: Hypertension, Other - asthma,. denies: CAD, DM, Malignancy Parental Family History Reviewed: Yes Children Family History Reviewed: No Sibling(s) Family History Reviewed.: Yes Medication/Allergy Home Medications: Prednisone [Deltasone 20 mg Tablet] 1 tab PO BID 5 Days #10 tablet 10/08/19 Azithromycin [Zithromax 250 mg Tablet] 250 mg PO ASDIR PRN #6 tablet 12/19/19 Dexamethasone [Decadron 4 Mg Tablet] 4 mg PO BID #8 tablet 12/19/19 Hydrocodone Bit/Homatropine [Hycodan Syrup 5-1.5 mg/5 ml Ud Cup] 5 ml PO Q4HP PRN #120 ml 12/19/19 Lorazepam [Ativan 1 mg Tablet] 1 mg PO HSP PRN #5 tablet 12/19/19 Mupirocin [Bactroban 2% Ointment 22 gm] 1 applic NASL HSP PRN #1 tube 12/19/19 Allergies/Adverse Reactions: No Known Allergies Allergy (Verified 10/07/19 21:39) Review of Systems Constitutional: PRESENT: as per HPI, fever(s), other - Malaise Eyes: ABSENT: visual disturbances, other - Eye pain Ears: PRESENT: as per HPI, other - Left ear pain. ABSENT: hearing changes Nose, Mouth, and Throat: PRESENT: as per HPI, sore throat, other - Nasal congestion. ABSENT: mouth pain Cardiovascular: PRESENT: as per HPI, chest pain - Soreness, dyspnea on exertion, orthropnea, palpitations, other - Lightheadedness. ABSENT: edema Respiratory: PRESENT: as per HPI, cough, dyspnea. ABSENT: hemoptysis, sputum Gastrointestinal: ABSENT: abdominal pain, constipation, diarrhea, nausea, vomiting Genitourinary: ABSENT: dysuria, hematuria Musculoskeletal: ABSENT: back pain, joint swelling, muscle weakness Integumentary: ABSENT: pruritus, rash Neurological: ABSENT: confusion, convulsions, focal weakness, memory loss, syncope Psychiatric: ABSENT: anxiety, depression Endocrine: ABSENT: cold intolerance, heat intolerance, polydipsia, polyphagia, polyuria Hematologic/Lymphatic: ABSENT: easy bleeding, easy bruising Allergic/Immunologic: ABSENT: seasonal rhinorrhea Physical Exam Vital Signs: Temp Pulse Resp BP Pulse Ox 98.5 F 226 H 17 106/52 L 99 12/19/19 19:18 12/19/19 17:54 12/19/19 21:01 12/19/19 21:01 12/19/19 21:01 Intake & Output 12/17/19 12/18/19 12/19/19 23:59 23:59 23:59 Intake Total 143 Balance 143 Weight 76.3 kg General appearance: PRESENT: cooperative, mild distress - Mild to moderate respiratory distress at the time of my exam, other - On supplemental oxygen at home exam Head exam: PRESENT: atraumatic, normocephalic Eye exam: PRESENT: conjunctiva pink. ABSENT: conjunctival injection, scleral icterus Ear exam: PRESENT: normal external ear exam. ABSENT: bleeding, drainage Mouth exam: PRESENT: dry mucosa, neck supple Neck exam: PRESENT: thyromegaly. ABSENT: JVD, tracheal deviation Respiratory exam: PRESENT: accessory muscle use, prolonged expiratory phas - Minimally prolonged expiratory phase present throughout all rojas, symmetrical, wheezes - Expiratory wheezes present throughout all rojas, other - Pursed lip breathing Cardiovascular exam: PRESENT: RRR. ABSENT: clicks, gallop, rubs Pulses: PRESENT: normal radial pulses, normal dorsalis pedis pul Vascular exam: PRESENT: normal capillary refill. ABSENT: pallor GI/Abdominal exam: PRESENT: normal bowel sounds, soft. ABSENT: tenderness Rectal exam: PRESENT: deferred Extremities exam: ABSENT: joint swelling, pedal edema Musculoskeletal exam: ABSENT: deformity, dislocation Neurological exam: PRESENT: alert, oriented to person, oriented to place, oriented to time, oriented to situation, CN II-XII grossly intact. ABSENT: motor sensory deficit Psychiatric exam: PRESENT: anxious, normal mood Skin exam: PRESENT: dry, intact, warm. ABSENT: jaundice, rash, urticaria Results Laboratory Results: 12/19/19 18:32 12/19/19 18:32 12/19/19 12/19/19 12/19/19 18:32 18:32 19:30 WBC 4.2 RBC 4.30 Hgb 12.8 Hct 36.6 MCV 85 MCH 29.7 MCHC 34.9 RDW 12.8 Plt Count 241 Seg Neutrophils % 61.0 VBG pH VBG pCO2 VBG HCO3 VBG Base Excess Sodium 136.9 L Potassium 4.6 Chloride 102 Carbon Dioxide 22 Anion Gap 13 BUN 6 L Creatinine 0.32 L Est GFR ( Amer) > 60 Glucose 74 L Lactic Acid 0.8 Calcium 9.8 Total Bilirubin 0.5 AST 53 H Alkaline Phosphatase 102 Total Protein 7.3 Albumin 4.1 12/19/19 19:58 WBC RBC Hgb Hct MCV MCH MCHC RDW Plt Count Seg Neutrophils % VBG pH 7.31 VBG pCO2 51.8 VBG HCO3 25.6 VBG Base Excess -1.3 Sodium Potassium Chloride Carbon Dioxide Anion Gap BUN Creatinine Est GFR ( Amer) Glucose Lactic Acid Calcium Total Bilirubin AST Alkaline Phosphatase Total Protein Albumin Impressions: Chest X-Ray 12/19/19 17:59 IMPRESSION: NO ACUTE FINDINGS. Assessment and Plan - Diagnosis (1) Asthma with status asthmaticus in adult Qualifiers: Asthma severity: mild Asthma persistence: intermittent Qualified Code(s): J45.22 - Mild intermittent asthma with status asthmaticus Is this a current diagnosis for this admission?: Yes (2) Acute respiratory failure with hypoxia Is this a current diagnosis for this admission?: Yes (3) Acute serous otitis media, left ear Qualifiers: Recurrence: non-recurrent Qualified Code(s): H65.02 - Acute serous otitis media, left ear Is this a current diagnosis for this admission?: Yes (4) Tachycardia Is this a current diagnosis for this admission?: Yes (5) Hyperthyroidism Is this a current diagnosis for this admission?: Yes - Plan Summary Summary: Patient will be admitted to observation status in a medical bed where she will receive routine supportive and symptomatic cares. She will continue to see risk supplemental oxygen as needed to maintain an adequate oxygen saturation level. She received additional doses of Solu-Medrol 40 mg every 6 hours x 3 doses. She will receive an aggressive pulmonary toilet for the treatment of her status asthmaticus utilizing nebulized Xopenex, Atrovent and Pulmicort. Her anxiety will be treated with Ativan 1 mg IV every 4 hours on an as-needed basis. Her chest soreness and discomfort will be treated with morphine sulfate 4 mg IV every 2 hours on a as needed basis for pain level 4 or 5. She will be reevaluated for possible discharge to home on 12/20/2019. - Time Time Spent with patient: 15-24 minutes Medications reviewed and adjusted accordingly: Yes Anticipated discharge: Home - Inpatient Certification Based on my medical assessment, after consideration of the patient's comorbidities, presenting symptoms, or acuity I expect that the services needed warrant INPATIENT care.: No I certify that my determination is in accordance with my understanding of Medicare's requirements for reasonable and necessary INPATIENT services [42 CFR 412.3e].: No
[2019-12-20] MEDS ORDERED: PROMETHAZINE HCL INJ 25 MG/1 ML VIAL IV PRN (05:36)
[2019-12-20] MEDS: BUDESONIDE NEB 0.5 MG/2 ML AMPUL NEB SCH ×2 (08:41→20:52)
[2019-12-20] MEDS: ENOXAPARIN SODIUM INJ 40 MG/0.4 ML DISP.SYRIN SUBCUT SCH (11:47)
[2019-12-20] MEDS: FAMOTIDINE 20 MG TABLET PO SCH ×2 (11:48→21:19)
[2019-12-20] MEDS: METHIMAZOLE 5 MG TABLET PO SCH ×2 (11:48→21:18)
[2019-12-20] MEDS: DOCUSATE SODIUM 100 MG CAPSULE PO SCH ×2 (11:48→18:50)
--- NOTE | 2019-12-20 16:24 | PDOC PROGRESS REPORT ---
Subjective Progress Note for:: 12/20/19 Subjective:: This 55-year-old female who presented with increased shortness of breath and was found to have severe asthma exacerbation. Upon encounter, she is saturating well on nasal cannula. She still reports she is short of breath but this is improved compared to yesterday. She still has wheezing bilaterally. Reason For Visit: STATUS ASTHMATICUS,ACUTE RESPIRATORY FAILURE WITH Physical Exam Vital Signs: Temp Pulse Resp BP Pulse Ox 98.0 F 105 H 24 H 123/62 96 12/19/19 23:23 12/20/19 08:43 12/20/19 14:01 12/20/19 14:00 12/20/19 14:01 Intake & Output 12/19/19 12/20/19 12/21/19 06:59 06:59 06:59 Intake Total 1170 2000 Balance 1170 2000 Weight 168 lb 3.403 oz General appearance: PRESENT: no acute distress, well-developed, well-nourished Head exam: PRESENT: atraumatic, normocephalic Eye exam: PRESENT: conjunctiva pink, EOMI, PERRLA. ABSENT: scleral icterus Ear exam: PRESENT: normal external ear exam Mouth exam: PRESENT: moist, tongue midline Neck exam: ABSENT: carotid bruit, JVD, lymphadenopathy, thyromegaly Respiratory exam: PRESENT: rhonchi, wheezes. ABSENT: rales Cardiovascular exam: PRESENT: RRR. ABSENT: diastolic murmur, rubs, systolic murmur Pulses: PRESENT: normal dorsalis pedis pul GI/Abdominal exam: PRESENT: normal bowel sounds, soft. ABSENT: distended, guarding, mass, organolmegaly, rebound, tenderness Rectal exam: PRESENT: deferred Extremities exam: PRESENT: full ROM. ABSENT: calf tenderness, clubbing, pedal edema Neurological exam: PRESENT: alert, awake, oriented to person, oriented to place, oriented to time, oriented to situation, CN II-XII grossly intact. ABSENT: motor sensory deficit Results Laboratory Results: 12/19/19 18:32 12/19/19 18:32 12/19/19 12/19/19 12/19/19 18:32 18:32 18:32 WBC 4.2 RBC 4.30 Hgb 12.8 Hct 36.6 MCV 85 MCH 29.7 MCHC 34.9 RDW 12.8 Plt Count 241 Seg Neutrophils % 61.0 VBG pH VBG pCO2 VBG HCO3 VBG Base Excess Sodium 136.9 L Potassium 4.6 Chloride 102 Carbon Dioxide 22 Anion Gap 13 BUN 6 L Creatinine 0.32 L Est GFR ( Amer) > 60 Glucose 74 L Lactic Acid Calcium 9.8 Total Bilirubin 0.5 AST 53 H Alkaline Phosphatase 102 Total Protein 7.3 Albumin 4.1 TSH < 0.01 L Free T4 4.62 H Free T3 pg/mL 12/19/19 12/19/19 12/19/19 18:32 19:30 19:58 WBC RBC Hgb Hct MCV MCH MCHC RDW Plt Count Seg Neutrophils % VBG pH 7.31 VBG pCO2 51.8 VBG HCO3 25.6 VBG Base Excess -1.3 Sodium Potassium Chloride Carbon Dioxide Anion Gap BUN Creatinine Est GFR ( Amer) Glucose Lactic Acid 0.8 Calcium Total Bilirubin AST Alkaline Phosphatase Total Protein Albumin TSH Free T4 Free T3 pg/mL 14.20 H 12/19/19 12/20/19 21:53 01:00 WBC RBC Hgb Hct MCV MCH MCHC RDW Plt Count Seg Neutrophils % VBG pH VBG pCO2 VBG HCO3 VBG Base Excess Sodium Potassium Chloride Carbon Dioxide Anion Gap BUN Creatinine Est GFR ( Amer) Glucose Lactic Acid < 0.5 L 1.5 Calcium Total Bilirubin AST Alkaline Phosphatase Total Protein Albumin TSH Free T4 Free T3 pg/mL Impressions: Chest X-Ray 12/19/19 17:59 IMPRESSION: NO ACUTE FINDINGS. Assessment and Plan - Diagnosis (1) Acute respiratory failure with hypoxia Is this a current diagnosis for this admission?: Yes Plan: Secondary to severe asthma exacerbation. Saturating well on nasal cannula. (2) Asthma exacerbation Qualifiers: Asthma severity: mild Asthma persistence: intermittent Qualified Code(s): J45.21 - Mild intermittent asthma with (acute) exacerbation Is this a current diagnosis for this admission?: Yes Plan: Continue breathing treatments and IV steroids. (3) Hyperthyroidism Is this a current diagnosis for this admission?: Yes Plan: Continue methimazole. - Plan Summary Summary: Patient will be admitted to observation status in a medical bed where she will receive routine supportive and symptomatic cares. She will continue to see risk supplemental oxygen as needed to maintain an adequate oxygen saturation level. She received additional doses of Solu-Medrol 40 mg every 6 hours x 3 doses. She will receive an aggressive pulmonary toilet for the treatment of her status asthmaticus utilizing nebulized Xopenex, Atrovent and Pulmicort. Her anxiety will be treated with Ativan 1 mg IV every 4 hours on an as-needed basis. Her chest soreness and discomfort will be treated with morphine sulfate 4 mg IV every 2 hours on a as needed basis for pain level 4 or 5. She will be reevaluated for possible discharge to home on 12/20/2019. - Time Time Spent with patient: 25-34 minutes
[2019-12-20] MEDS ORDERED: INFLUENZA QUAD (6MOS+) 2019-20 VAC 0.5 ML SYR IM ONE (18:49)
[2019-12-21] MEDS: IPRATROPIUM BROMIDE 0.02% NEB 0.5 MG/2.5 ML AMPUL NEB SCH ×4 (00:15→19:26)
[2019-12-21] MEDS: LEVALBUTEROL HCL NEB 1.25 MG/3 ML AMPUL NEB SCH ×4 (00:15→19:26)
[2019-12-21] MEDS: METHYLPREDNISOLONE INJ 40 MG/1 ML SDV IV SCH ×3 (05:26→21:29)
[2019-12-21] MEDS: BUDESONIDE NEB 0.5 MG/2 ML AMPUL NEB SCH ×2 (08:49→19:26)
[2019-12-21] MEDS: DOCUSATE SODIUM 100 MG CAPSULE PO SCH ×2 (09:54→17:16)
[2019-12-21] MEDS: FAMOTIDINE 20 MG TABLET PO SCH ×2 (09:54→21:29)
[2019-12-21] MEDS: METHIMAZOLE 5 MG TABLET PO SCH ×3 (09:54→21:30)
[2019-12-21] MEDS: ENOXAPARIN SODIUM INJ 40 MG/0.4 ML DISP.SYRIN SUBCUT SCH (09:56)
[2019-12-21] MEDS: BENZONATATE 100 MG CAPSULE PO SCH ×2 (14:43→21:29)
--- NOTE | 2019-12-21 14:47 | PDOC PROGRESS REPORT ---
Subjective Progress Note for:: 12/21/19 Subjective:: This 55-year-old female who presented with increased shortness of breath and was found to have severe asthma exacerbation. 12/20: Upon encounter, she is saturating well on nasal cannula. She still reports she is short of breath but this is improved compared to yesterday. She still has wheezing bilaterally. 12/11: No acute event overnight. Patient reports that her shortness of breath is slightly improved from yesterday but she is not at her baseline yet. She still has wheezing bilaterally. Reason For Visit: STATUS ASTHMATICUS,ACUTE RESPIRATORY FAILURE WITH Physical Exam Vital Signs: Temp Pulse Resp BP Pulse Ox 98.2 F 81 18 107/86 H 96 12/21/19 00:00 12/21/19 10:29 12/21/19 10:29 12/21/19 00:00 12/21/19 10:29 Intake & Output 12/20/19 12/21/19 12/22/19 06:59 06:59 06:59 Intake Total 1170 3800 Balance 1170 3800 Weight 168 lb 3.403 oz 176 lb 12.972 oz 176 lb 12.972 oz General appearance: PRESENT: no acute distress, well-developed, well-nourished Head exam: PRESENT: atraumatic, normocephalic Eye exam: PRESENT: conjunctiva pink, EOMI, PERRLA. ABSENT: scleral icterus Ear exam: PRESENT: normal external ear exam Mouth exam: PRESENT: moist, tongue midline Neck exam: ABSENT: carotid bruit, JVD, lymphadenopathy, thyromegaly Respiratory exam: PRESENT: rhonchi, wheezes. ABSENT: rales Cardiovascular exam: PRESENT: RRR. ABSENT: diastolic murmur, rubs, systolic murmur Pulses: PRESENT: normal dorsalis pedis pul GI/Abdominal exam: PRESENT: normal bowel sounds, soft. ABSENT: distended, guarding, mass, organolmegaly, rebound, tenderness Rectal exam: PRESENT: deferred Extremities exam: PRESENT: full ROM. ABSENT: calf tenderness, clubbing, pedal edema Neurological exam: PRESENT: alert, awake, oriented to person, oriented to place, oriented to time, oriented to situation, CN II-XII grossly intact. ABSENT: motor sensory deficit Results Laboratory Results: 12/19/19 18:32 02/24/20 18:32 Impressions: Chest X-Ray 12/19/19 17:59 IMPRESSION: NO ACUTE FINDINGS. Assessment and Plan - Diagnosis (1) Acute respiratory failure with hypoxia Is this a current diagnosis for this admission?: Yes Plan: Secondary to severe asthma exacerbation. Saturating well on nasal cannula. (2) Asthma exacerbation Qualifiers: Asthma severity: mild Asthma persistence: intermittent Qualified Code(s): J45.21 - Mild intermittent asthma with (acute) exacerbation Is this a current diagnosis for this admission?: Yes Plan: Slightly improved. Continue breathing treatments and IV steroids. (3) Hyperthyroidism Is this a current diagnosis for this admission?: Yes Plan: 12/20: Continue methimazole. 12/21: Increase methimazole from 5 mg q12 to 10 q8h. - Plan Summary Summary: Patient will be admitted to observation status in a medical bed where she will receive routine supportive and symptomatic cares. She will continue to see risk supplemental oxygen as needed to maintain an adequate oxygen saturation level. She received additional doses of Solu-Medrol 40 mg every 6 hours x 3 doses. She will receive an aggressive pulmonary toilet for the treatment of her status asthmaticus utilizing nebulized Xopenex, Atrovent and Pulmicort. Her anxiety will be treated with Ativan 1 mg IV every 4 hours on an as-needed basis. Her chest soreness and discomfort will be treated with morphine sulfate 4 mg IV every 2 hours on a as needed basis for pain level 4 or 5. She will be ree valuated for possible discharge to home on 12/20/2019. - Time Time Spent with patient: 25-34 minutes
[2019-12-22] MEDS: IPRATROPIUM BROMIDE 0.02% NEB 0.5 MG/2.5 ML AMPUL NEB SCH ×4 (02:06→19:34)
[2019-12-22] MEDS: LEVALBUTEROL HCL NEB 1.25 MG/3 ML AMPUL NEB SCH ×4 (02:06→19:34)
[2019-12-22] MEDS: METHIMAZOLE 5 MG TABLET PO SCH ×3 (05:25→22:00)
[2019-12-22] MEDS: METHYLPREDNISOLONE INJ 40 MG/1 ML SDV IV SCH ×3 (05:25→22:00)
[2019-12-22] MEDS: BENZONATATE 100 MG CAPSULE PO SCH ×3 (05:25→22:00)
[2019-12-22] MEDS: GUAIFENESIN SYRP 200 MG/10 ML UDC PO PRN ×3 (08:05→22:02)
[2019-12-22] MEDS: BUDESONIDE NEB 0.5 MG/2 ML AMPUL NEB SCH ×2 (08:33→19:34)
[2019-12-22] MEDS: DOCUSATE SODIUM 100 MG CAPSULE PO SCH ×2 (09:58→18:13)
[2019-12-22] MEDS: FAMOTIDINE 20 MG TABLET PO SCH ×2 (09:58→22:00)
[2019-12-22] MEDS: ENOXAPARIN SODIUM INJ 40 MG/0.4 ML DISP.SYRIN SUBCUT SCH (09:59)
--- NOTE | 2019-12-22 14:16 | PDOC PROGRESS REPORT ---
Subjective Progress Note for:: 12/22/19 Subjective:: This 55-year-old female who presented with increased shortness of breath and was found to have severe asthma exacerbation. 12/20: Upon encounter, she is saturating well on nasal cannula. She still reports she is short of breath but this is improved compared to yesterday. She still has wheezing bilaterally. 12/11: No acute event overnight. Patient reports that her shortness of breath is slightly improved from yesterday but she is not at her baseline yet. She still has wheezing bilaterally. 12/12: No acute event overnight. Her shortness of breath continue to improve. She still has bilateral wheezing but this sounds improved compared to yesterday. Denies chest pain. Reason For Visit: STATUS ASTHMATICUS,ACUTE RESPIRATORY FAILURE WITH Physical Exam Vital Signs: Temp Pulse Resp BP Pulse Ox 97.6 F 85 18 125/63 95 12/22/19 08:16 12/22/19 13:38 12/22/19 13:38 12/22/19 08:16 12/22/19 13:38 Intake & Output 12/21/19 12/22/19 12/23/19 06:59 06:59 06:59 Intake Total 3800 680 500 Balance 3800 680 500 Weight 176 lb 12.972 oz 176 lb 2.389 oz General appearance: PRESENT: no acute distress, well-developed, well-nourished Head exam: PRESENT: atraumatic, normocephalic Eye exam: PRESENT: conjunctiva pink, EOMI, PERRLA. ABSENT: scleral icterus Ear exam: PRESENT: normal external ear exam Mouth exam: PRESENT: moist, tongue midline Neck exam: ABSENT: carotid bruit, JVD, lymphadenopathy, thyromegaly Respiratory exam: PRESENT: rhonchi, wheezes. ABSENT: rales Cardiovascular exam: PRESENT: RRR. ABSENT: diastolic murmur, rubs, systolic murmur Pulses: PRESENT: normal dorsalis pedis pul GI/Abdominal exam: PRESENT: normal bowel sounds, soft. ABSENT: distended, guarding, mass, organolmegaly, rebound, tenderness Rectal exam: PRESENT: deferred Extremities exam: PRESENT: full ROM. ABSENT: calf tenderness, clubbing, pedal edema Neurological exam: PRESENT: alert, awake, oriented to person, oriented to place, oriented to time, oriented to situation, CN II-XII grossly intact. ABSENT: motor sensory deficit Results Laboratory Results: 12/19/19 18:32 12/19/19 18:32 Impressions: Chest X-Ray 12/19/19 17:59 IMPRESSION: NO ACUTE FINDINGS. Assessment and Plan - Diagnosis (1) Acute respiratory failure with hypoxia Is this a current diagnosis for this admission?: Yes Plan: Secondary to severe asthma exacerbation. Saturating well on nasal cannula. (2) Asthma exacerbation Qualifiers: Asthma severity: mild Asthma persistence: intermittent Qualified Code(s): J45.21 - Mild intermittent asthma with (acute) exacerbation Is this a current diagnosis for this admission?: Yes Plan: Improving. Continue breathing treatments and IV steroids. (3) Hyperthyroidism Is this a current diagnosis for this admission?: Yes Plan: 12/20: Continue methimazole. 12/21: Increase methimazole from 5 mg q12 to 10 q8h. - Plan Summary Summary: Patient will be admitted to observation status in a medical bed where she will receive routine supportive and symptomatic cares. She will continue to see risk supplemental oxygen as needed to maintain an adequate oxygen saturation level. She received additional doses of Solu-Medrol 40 mg every 6 hours x 3 doses. She will receive an aggressive pulmonary toilet for the treatment of her status asthmaticus utilizing nebulized Xopenex, Atrovent and Pulmicort. Her anxiety will be treated with Ativan 1 mg IV every 4 hours on an as-needed basis. Her chest soreness and discomfort will be treated with morphine sulfate 4 mg IV every 2 hours on a as needed basis for pain level 4 or 5. She will be reevaluated for possible discharge to home on 12/20/2019. - Time Time Spent with patient: 25-34 minutes
[2019-12-23] MEDS: LEVALBUTEROL HCL NEB 1.25 MG/3 ML AMPUL NEB SCH ×3 (01:32→13:59)
[2019-12-23] MEDS: IPRATROPIUM BROMIDE 0.02% NEB 0.5 MG/2.5 ML AMPUL NEB SCH ×3 (01:32→13:59)
[2019-12-23] MEDS: METHIMAZOLE 5 MG TABLET PO SCH ×2 (06:07→14:35)
[2019-12-23] MEDS: BENZONATATE 100 MG CAPSULE PO SCH ×2 (06:07→14:25)
[2019-12-23] MEDS: METHYLPREDNISOLONE INJ 40 MG/1 ML SDV IV SCH (06:08)
[2019-12-23] MEDS: GUAIFENESIN SYRP 200 MG/10 ML UDC PO PRN (06:08)
[2019-12-23] MEDS: BUDESONIDE NEB 0.5 MG/2 ML AMPUL NEB SCH (07:48)
[2019-12-23 08:55] LABS: FREE T3 4.01 pg/mL (2.77-5.27); FREE T4 (FREE THYROXINE) 2.39 ng/dL (0.78-2.19)
[2019-12-23 09:13] LABS: THYROID STIMULATING HORMONE < 0.01 uIU/mL (0.47-4.68)
[2019-12-23 09:37] LABS: ANION GAP 7 (5-19); BLOOD UREA NITROGEN 13 mg/dL (7-20); CALCIUM 9.3 mg/dL (8.4-10.2); CARBON DIOXIDE 29 mmol/L (22-30); CHLORIDE 101 mmol/L (98-107); GLUCOSE 116 mg/dL (75-110); POTASSIUM 4.3 mmol/L (3.6-5.0)
[2019-12-23] MEDS ORDERED: METHYLPREDNISOLONE INJ 40 MG/1 ML SDV IV SCH (10:00)
[2019-12-23] MEDS: ENOXAPARIN SODIUM INJ 40 MG/0.4 ML DISP.SYRIN SUBCUT SCH (10:22)
[2019-12-23] MEDS: DOCUSATE SODIUM 100 MG CAPSULE PO SCH (10:22)
[2019-12-23] MEDS: FAMOTIDINE 20 MG TABLET PO SCH (10:52)
--- NOTE | 2019-12-23 11:02 | RADIOLOGY REPORT (SQ) ---
EXAM DESCRIPTION: CT ABD/PELVIS NO ORAL OR IV COMPLETED DATE/TIME: 12/23/2019 10:44 am REASON FOR STUDY: LLQ pain and tenderness COMPARISON: TECHNIQUE: CT scan of the abdomen and pelvis performed without intravenous or oral contrast. Images reviewed with lung, soft tissue, and bone windows. Reconstructed coronal and sagittal MPR images revi ewed. All images stored on PACS. All CT scanners at this facility use dose modulation, iterative reconstruction, and/or weight based d osing when appropriate to reduce radiation dose to as low as reasonably achievable (ALARA). [facility]: Dose Right [facility]: CareDose [facility]: Dose Right [facility]: Teradose 4D [facility]: [employer] RADIATION DOSE: CT Rad equipment meets quality standard of care and radiation dose reduction techniq ues were employed. CTDIvol: 8.0 mGy. DLP: 429 mGy-cm.mGy. LIMITATIONS: None. FINDINGS: LOWER CHEST: No significant findings. No nodules or infiltrates. NON-CONTRASTED LIVER, SPLEEN, ADRENALS: Evaluation limited by lack of IV contrast. No identified sign ificant masses. PANCREAS: No masses. No peripancreatic inflammatory changes. GALLBLADDER: Decompressed. No radiopaque stones. RIGHT KIDNEY AND URETER: No suspicious masses. Assessment limited by lack of IV contrast. No signif icant calcifications. No hydronephrosis or hydroureter. LEFT KIDNEY AND URETER: No suspicious masses. Assessment limited by lack of IV contrast. No signifi cant calcifications. No hydronephrosis or hydroureter. AORTA AND RETROPERITONEUM: No aneurysm. No retroperitoneal masses or adenopathy. Incidentally noted duplicated IVC. BOWEL AND PERITONEAL CAVITY: Scattered colonic diverticula. No findings to suggest diverticulitis. No evidence of intestinal obstruction. No focal bowel wall thickening. APPENDIX: Normal. PELVIS, BLADDER, AND ABDOMINAL WALL:Unremarkable urinary bladder. Cystic lesion within the left adne xum measuring 1.5 cm, likely follicle. No free fluid, adenopathy or discrete mass. Evidence of prio r midline hernia repair. BONES: No acute bony abnormality. No suspicious osseous lesions. OTHER: No other significant finding. IMPRESSION: 1. No evidence of acute intra-abdominal/pelvic process. Normal appendix. 2. Prior midline hernia repair. 3. Incidentally noted duplicated IVC. COMMENT: Quality ID # [id number]: Final reports with documentation of one or more dose reduction techniques (e.g., Automated exposure control, adjustment of the mA and/or kV according to patient size, use of iterative reconstruction technique) TECHNICAL DOCUMENTATION: JOB ID: [id number] 2010 [employer]- All Rights Reserved Reading location - IP/workstation name: [facility]
[2019-12-23 14:45] VITALS: BP 107/86
--- NOTE | 2019-12-23 18:21 | PDOC DISCHARGE SUMMARY ---
Impression - Admit/DC Date/PCP Admission Date/Primary Care Provider: 12/21/19 13:39 Discharge Date: 12/23/19 - Discharge Diagnosis (1) Acute respiratory failure with hypoxia Is this a current diagnosis for this admission?: Yes (2) Asthma exacerbation Is this a current diagnosis for this admission?: Yes (3) Hyperthyroidism Is this a current diagnosis for this admission?: Yes - Assessment Summary: Patient will be admitted to observation status in a medical bed where she will receive routine supportive and symptomatic cares. She will continue to see risk supplemental oxygen as needed to maintain an adequate oxygen saturation level. She received additional doses of Solu-Medrol 40 mg every 6 hours x 3 doses. She will receive an aggressive pulmonary toilet for the treatment of her status asthmaticus utilizing nebulized Xopenex, Atrovent and Pulmicort. Her anxiety will be treated with Ativan 1 mg IV every 4 hours on an as-needed basis. Her chest soreness and discomfort will be treated with morphine sulfate 4 mg IV every 2 hours on a as needed basis for pain level 4 or 5. She will be reevaluated for possible discharge to home on 12/20/2019. - Additional Information Resuscitation Status: Full Code Discharge Diet: Regular Discharge Activity: Activity As Tolerated Referrals: [facility] [Outside] - 12/27/19 10:30 am Prescriptions: Prednisone [Deltasone 20 mg Tablet] 20 mg PO BID 5 Days #10 tablet Budesonide/Formoterol Fumarate [Symbicort Hfa 160-4.5 Mcg Inhaler 6 gm] 1 puff IH Q12 #1 inhaler Methimazole [Tapazole 5 mg Tablet] 10 mg PO Q8 #90 tablet Home Medications: Albuterol Sulfate [Proair HFA Inhalation Aerosol 8.5 gm MDI] 2 puff IH Q4HP PRN 12/20/19 Albuterol Sulfate [Ventolin 0.083% Neb 2.5 mg/3 mL Ampul] 2.5 mg NEB RTQ6HP PRN 12/20/19 Budesonide/Formoterol Fumarate [Symbicort Hfa 160-4.5 Mcg Inhaler 6 gm] 1 puff IH Q12 #1 inhaler 12/23/19 Methimazole [Tapazole 5 mg Tablet] 10 mg PO Q8 #90 tablet 12/23/19 Prednisone [Deltasone 20 mg Tablet] 20 mg PO BID 5 Days #10 tablet 12/23/19 History of Present Illiness History of Present Illness: Admitting hospitalist's H&P: JAROD MOON is a 54 year old female who presented to the emergency room with a one-week history of asthma symptoms. Patient admits progressively worsening asthma symptoms of wheezing, dyspnea worsened by exertion and air hunger over the last week. Her symptoms have become extremely severe today, are not responding to her home nebulizer treatments thus resulting in her presentation to the ER. Her asthma symptoms have been accompanied by upper respiratory infection syndrome symptoms including nasal congestion, sore throat and a left earache. Her asthma symptoms have been associated with chest pain/soreness, rapid palpitations, orthopnea, lightheadedness and a nonproductive cough. She denies other accompanying or associated signs and symptoms. She admits numerous prior similar episodes due to asthma exacerbations. She denies identification of any additional aggravating or ameliorating factors for her asthma symptoms. In the emergency room she was found to be markedly tachypneic, tachycardic and in severe respiratory distress with acute hypoxic respiratory failure. She was treated with intravenous steroids and magnesium sulfate. She received multiple nebulizer treatments and supplemental oxygen. She improved over the course of her treatment in ER but continued to have hypoxia with exertion and was subsequently admitted observati on status for further evaluation and treatment. Hospital Course Hospital Course: This 55-year-old female who presented with increased shortness of breath and was found to have severe asthma exacerbation. She was started on IV steroids and scheduled breathing treatments. She was also initially placed on BiPAP. Patient had slow but gradual improvement with above treatments. She was eventually weaned off BiPAP and transitioned to nasal cannula. She continued to improve and was eventually weaned off supplemental O2. She was able to ambulate the hallways on room air without any desaturation or acute issues. Patient returned to her baseline. She will be discharged on 5 more days of prednisone. Patient is also not on any maintenance inhaler at home for asthma. She will be started on Symbicort. Patient has had a longstanding history of hyperthyroidism. She had an undetectable TSH and elevated T4 and T3 during this course. Her methimazole was increased. Her repeat thyroid panel improve with increase in her methimazole. She will closely follow-up with her PCP next week for a repeat thyroid panel and appropriate adjustment of her methimazole. Physical Exam Vital Signs: Temp Pulse Resp BP Pulse Ox 97.5 F 77 18 107/86 H 97 12/23/19 14:37 12/23/19 14:37 12/23/19 14:37 12/23/19 14:37 12/23/19 14:37 Intake & Output 12/22/19 12/23/19 12/24/19 06:59 06:59 06:59 Intake Total 680 1200 Balance 680 1200 Weight 176 lb 2.389 oz 173 lb 1.006 oz General appearance: PRESENT: no acute distress, well-developed, well-nourished Head exam: PRESENT: atraumatic, normocephalic Eye exam: PRESENT: conjunctiva pink, EOMI, PERRLA. ABSENT: scleral icterus Ear exam: PRESENT: normal external ear exam Mouth exam: PRESENT: moist, tongue midline Neck exam: ABSENT: carotid bruit, JVD, lymphadenopathy, thyromegaly Respiratory exam: PRESENT: rhonchi. ABSENT: rales, wheezes Cardiovascular exam: PRESENT: RRR. ABSENT: diastolic murmur, rubs, systolic murmur Pulses: PRESENT: normal dorsalis pedis pul GI/Abdominal exam: PRESENT: normal bowel sounds, soft. ABSENT: distended, guarding, mass, organolmegaly, rebound, tenderness Rectal exam: PRESENT: deferred Extremities exam: PRESENT: full ROM. ABSENT: calf tenderness, clubbing, pedal edema Neurological exam: PRESENT: alert, awake, oriented to person, oriented to place, oriented to time, oriented to situation, CN II-XII grossly intact. ABSENT: motor sensory deficit Results Laboratory Results: WBC 4.2 10^3/uL (4.0-10.5) 12/19/19 18:32 RBC 4.30 10^6/uL (3.72-5.28) 12/19/19 18:32 Hgb 12.8 g/dL (12.0-15.5) 12/19/19 18:32 Hct 36.6 % (36.0-47.0) 12/19/19 18:32 MCV 85 fl (80-97) 12/19/19 18:32 MCH 29.7 pg (27.0-33.4) 12/19/19 18:32 MCHC 34.9 g/dL (32.0-36.0) 12/19/19 18:32 RDW 12.8 % (11.5-14.0) 12/19/19 18:32 Plt Count 241 10^3/uL (150-450) 12/19/19 18:32 Lymph % (Auto) 27.1 % (13-45) 12/19/19 18:32 Ware % (Auto) 10.7 % (3-13) 12/19/19 18:32 Eos % (Auto) 1.1 % (0-6) 12/19/19 18:32 Baso % (Auto) 0.1 % (0-2) 12/19/19 18:32 Absolute Neuts (auto) 2.6 10^3/uL (1.7-8.2) 12/19/19 18:32 Absolute Lymphs (auto) 1.1 10^3/uL (0.5-4.7) 12/19/19 18:32 Absolute Monos (auto) 0.5 10^3/uL (0.1-1.4) 12/19/19 18:32 Absolute Eos (auto) 0.0 10^3/uL (0.0-0.6) 12/19/19 18:32 Absolute Basos (auto) 0.0 10^3/uL (0.0-0.2) 12/19/19 18:32 Seg Neutrophils % 61.0 % (42-78) 12/19/19 18:32 VBG pH 7.31 (7.30-7.42) 12/19/19 19:58 VBG pCO2 51.8 mmHg (35-63) 12/19/19 19:58 VBG HCO3 25.6 mmol/L (20-32) 12/19/19 19:58 VBG Base Excess -1.3 mmol/L 12/19/19 19:58 Sodium 137.3 mmol/L (137-145) 12/23/19 07:45 Potassium 4.3 mmol/L (3.6-5.0) 12/23/19 07:45 Chloride 101 mmol/L (98-107) 12/23/19 07:45 Carbon Dioxide 29 mmol/L (22-30) 12/23/19 07:45 Anion Gap 7 (5-19) 12/23/19 07:45 BUN 13 mg/dL (7-20) 12/23/19 07:45 Creatinine 0.29 mg/dL (0.52-1.25) L 12/23/19 07:45 Est GFR ( Amer) > 60 (>60) 12/23/19 07:45 Est GFR (MDRD) Non-Af > 60 (>60) 12/23/19 07:45 Glucose 116 mg/dL (75-110) H 12/23/19 07:45 Lactic Acid 1.5 mmol/L (0.7-2.1) 12/20/19 01:00 Calcium 9.3 mg/dL (8.4-10.2) 12/23/19 07:45 Total Bilirubin 0.5 mg/dL (0.2-1.3) 12/19/19 18:32 Direct Bilirubin 0.3 mg/dL (0.0-0.4) 12/19/19 18:32 Neonat Total Bilirubin Not Reportable 12/19/19 18:32 Neonat Direct Bilirubin Not Reportable 12/19/19 18:32 Neonat Indirect Bili Not Reportable 12/19/19 18:32 AST 53 U/L (14-36) H 12/19/19 18:32 ALT 29 U/L (<35) 12/19/19 18:32 Alkaline Phosphatase 102 U/L (38-126) 12/19/19 18:32 Total Protein 7.3 g/dL (6.3-8.2) 12/19/19 18:32 Albumin 4.1 g/dL (3.5-5.0) 12/19/19 18:32 TSH < 0.01 uIU/mL (0.47-4.68) L 12/23/19 07:45 Free T4 2.39 ng/dL (0.78-2.19) H 12/23/19 07:45 Free T3 pg/mL 4.01 pg/mL (2.77-5.27) 12/23/19 07:45 Influenza A (Rapid) NEGATIVE (NEGATIVE) 12/19/19 20:30 Influenza B (Rapid) NEGATIVE (NEGATIVE) 12/19/19 20:30 Impressions: Chest X-Ray 12/19/19 17:59 IMPRESSION: NO ACUTE FINDINGS. Abdomen/Pelvis CT 12/23/19 00:00 IMPRESSION: 1. No evidence of acute intra-abdominal/pelvic process. Normal appendix. 2. Prior midline hernia repair. 3. Incidentally noted duplicated IVC. Stroke Is this a Stroke Patient?: No Acute Heart Failure - Is this a Heart Failure Patient?: No
== END 2019-12-23 15:35 | disposition home or self-care (01) | DRG 189 ==
LOC: ER 17:32 → EH 22:17 → INTOOBSV 22:17 → 4S 12-20 17:29 → OBSVTOIN 12-21 13:39
PROVIDERS: ADMIT Emergency Medicine; ATTEND Emergency Medicine
PROC: 3E0234Z Introduction of Serum, Toxoid and Vaccine into Muscle, Percutaneous Approach (ICD-10-PCS; principal; 2019-12-23)
DX: J96.01 Acute respiratory failure with hypoxia (principal); J45.51 Severe persistent asthma with (acute) exacerbation; H65.02 Acute serous otitis media, left ear; E05.90 Thyrotoxicosis, unspecified without thyrotoxic crisis or storm; R00.0 Tachycardia, unspecified; F41.9 Anxiety disorder, unspecified; Z23 Encounter for immunization
CPT/HCPCS: 36415; 71045; 74176; 80048; 80053; 82803; 83605; 84439; 84443; 84481; 85025; 87040; 87070; 87077; 87205; 87804; 90686; 93005; 93010; 94640; 96365; 96366; 96372; 96375; 99285; G0378; J0500; J1100; J1650; J2060; J2270; J2405; J2920; J2930; J3475; J3490; J7120; J7620

== ENCOUNTER → 2019-12-27 | Outpatient (CLI) | payer OTHER ==
[2019-12-27 17:06] LABS: ABSOLUTE MONOCYTES (AUTO) 0.5 10^3/uL (0.1-1.4); ABSOLUTE NEUT (AUTO) 7.6 10^3/uL (1.7-8.2); BASOPHILS % (AUTO) 0.1 % (0-2); HEMOGLOBIN 13.1 g/dL (12.0-15.5); LYMPHOCYTES % (AUTO) 19.6 % (13-45); MEAN CORPUSCULAR HEMOGLOBIN 29.6 pg (27.0-33.4); MEAN CORPUSCULAR HGB CONC 34.5 g/dL (32.0-36.0); MEAN CORPUSCULAR VOLUME 86 fl (80-97); MONOCYTES % (AUTO) 4.5 % (3-13); PLATELET COUNT 255 10^3/uL (150-450); RED BLOOD COUNT 4.43 10^6/uL (3.72-5.28); RED CELL DISTRIBUTION WIDTH 12.9 % (11.5-14.0); SEGMENTED NEUTROPHILS % (AUTO) 75.8 % (42-78); TOTAL CELLS COUNTED % (AUTO) 100 %
[2019-12-27 17:25] LABS: ALBUMIN 3.7 g/dL (3.5-5.0); ALKALINE PHOSPHATASE 70 U/L (38-126); ANION GAP 7 (5-19); ASPARTATE AMINO TRANSFERASE 17 U/L (14-36); BILIRUBIN,TOTAL 0.3 mg/dL (0.2-1.3); BLOOD UREA NITROGEN 9 mg/dL (7-20); CALCIUM 9.2 mg/dL (8.4-10.2); CARBON DIOXIDE 27 mmol/L (22-30); CHLORIDE 102 mmol/L (98-107); GLUCOSE 96 mg/dL (75-110); POTASSIUM 4.4 mmol/L (3.6-5.0); TOTAL PROTEIN 6.2 g/dL (6.3-8.2)
[2019-12-27 17:40] LABS: FREE T3 6.87 pg/mL (2.77-5.27); FREE T4 (FREE THYROXINE) 2.67 ng/dL (0.78-2.19)
== END ==
LOC: CCC 15:44
DX: E03.9 Hypothyroidism, unspecified (principal); J45.909 Unspecified asthma, uncomplicated
CPT/HCPCS: 36415; 80053; 84436; 84439; 84481; 85025

== ENCOUNTER 2020-03-07 21:45 | Emergency (ER) | payer SELFPAY ==
[2020-03-07] MEDS ORDERED: IPRATROPIUM/ALBUTEROL 0.5-2.5 MG/3 ML AMPUL NEB ONE (22:38)
--- NOTE | 2020-03-07 22:40 | ER Document Report ---
ED General - General Chief Complaint: Breathing Difficulty Stated Complaint: DIFFICULTY BREATHING Time Seen by Provider: 03/07/20 22:27 Primary Care Provider: [facility] [NO LOCAL MD] - Follow up as needed Mode of Arrival: Ambulatory Information source: Patient Notes: 54-year-old woman presents to the emergency department with a two-week history of increasing shortness of breath and cough. States that she has a history of asthma since childhood, she has had a cough which is been productive of yellowish sputum. She denies being a smoker and also has had fatigue and body aches. Denies exposure to known coronavirus infection or anyone who is tested positive for coronavirus. TRAVEL OUTSIDE OF THE [place] IN LAST 30 DAYS: No - Related Data Allergies/Adverse Reactions: No Known Allergies Allergy (Verified 10/07/19 21:39) Past Medical History - Social History Smoking Status: Never Smoker Frequency of alcohol use: None Drug Abuse: None Family History: Hypertension, Other - asthma,. denies: CAD, DM, Malignancy Patient has homicidal ideation: No - Past Medical History Cardiac Medical History: Reports: Hx Hypertension Denies: Hx Atrial Fibrillation, Hx Congestive Heart Failure, Hx Coronary Artery Disease, Hx DVT, Hx Heart Attack, Hx Hypercholesterolemia, Hx Peripheral Vascular Disease, Hx Pulmonary Embolism Pulmonary Medical History: Reports: Hx Asthma, Hx Bronchitis, Hx Pneumonia, Hx Intubation, Hx Respiratory Failure Denies: Hx COPD, Hx Tuberculosis Neurological Medical History: Denies: Hx Seizures Endocrine Medical History: Reports: Hx Hyperthyroidism. Denies: Hx Diabetes Mellitus Type 1, Hx Diabetes Mellitus Type 2, Hx Hypothyroidism Renal/ Medical History: Denies: Hx Peritoneal Dialysis GI Medical History: Denies: Hx Cirrhosis, Hx Crohn's Disease, Hx Gastroesophageal Reflux Disease, Hx Hepatitis, Hx Ulcerative Colitis Musculoskeletal Medical History: Denies Hx Arthritis, Denies Hx Gout Skin Medical History: Denies Hx Eczema, Denies Hx Psoriasis Psychiatric Medical History: Denies: Hx Depression Infectious Medical History: Denies: Hx Hepatitis Past Surgical History: Reports: Hx Abdominal Surgery - UMBILICAL HERNIA REPAIR, Hx Herniorrhaphy - Umbilical herniorrhaphy, Hx Umbilical Hernia - Immunizations Immunizations up to date: Yes Hx Diphtheria, Pertussis, Tetanus Vaccination: Yes Hx Pneumococcal Vaccination: 03/25/14 Review of Systems - Review of Systems Notes: Constitutional: + Fever. + Generalized weakness HENT: Negative for sore throat. Eyes: Negative for visual changes. Cardiovascular: Negative for chest pain. Respiratory: + Cough, + shortness of breath Gastrointestinal: Negative for abdominal pain, vomiting or diarrhea. Genitourinary: Negative for dysuria. Musculoskeletal: Negative for back pain. Skin: Negative for rash. Neurological: Negative for headaches, weakness or numbness. 10 point ROS negative except as marked above and in HPI. Physical Exam - Vital signs Vitals: Resp Pulse Ox 19 91 L 03/07/20 21:48 03/07/20 21:48 - Notes Notes: PHYSICAL EXAMINATION: Physical Exam: General: Well-nourished well-developed 54-year-old woman in no acute distress. HEENT: NC/AT, pupils equal round and reactive to light, MM moist,nares clear, oropharynx clear, airway patent Neck: supple, no adenopathy, no masses. Good range of motion Lungs: Bilateral inspiratory wheezing, no rales no rhonchi CVS: Tachycardic rate and rhythm no murmur gallop or rub Abdomen: Soft, active, nontender, no masses, no hepatosplenomegaly Ext: No edema, clubbing or cyanosis. Neuro: Alert and responsive, moving all 4 extremities on command, cranial nerves intact, no focal findings Skin: Intact no open lesions, no rash PSYCH: Normal mood, normal affect. Course - Re-evaluation Re-evalutation: 03/08/20 01:54 Patient presents with low-grade temperature, cough and body aches. Evaluation for influenza and strep are negative, urinalysis was also noted to be negative. Chest x-ray was also negative. Given her presentation, coronavirus screening test is being performed. I have instructed the patient that she will need to self isolate until she received a report of the test results. The patient acknowledges that she has been tested for COVID-19, and will self isolate at home until she receives results. She is instructed to avoid anti-inflammatory medications. May use Tylenol for fever, aches and pains. She is also instructed to return to the hospital if her symptoms are worsening or development of shortness of breath. - Vital Signs Vital signs: Temp Pulse Resp BP Pulse Ox 98.2 F 20 117/70 93 03/07/20 22:20 03/08/20 01:00 03/08/20 00:02 03/08/20 01:00 - Laboratory Result Diagrams: 03/07/20 23:29 03/07/20 23:29 Laboratory results interpreted by me: 03/07/20 03/07/20 23:29 23:29 RDW 14.8 H Creatinine 0.45 L - Diagnostic Test Radiology reviewed: Image reviewed, Reports reviewed - Chest x-ray: No acute cardiopulmonary disease. - EKG Interpretation by Me EKG shows normal: Sinus rhythm - Rate of 75, occasional PVC normal EKG. Discharge - Discharge Clinical Impression: Suspected 2019 novel coronavirus infection Asthma exacerbation Qualifiers: Asthma severity: mild Asthma persistence: unspecified Qualified Code(s): J45.901 - Unspecified asthma with (acute) exacerbation Asthmatic bronchitis Qualifiers: Asthma severity: mild Asthma persistence: intermittent Asthma complication type: uncomplicated Qualified Code(s): J45.20 - Mild intermittent asthma, uncomplicated Condition: Good Disposition: HOME, SELF-CARE Instructions: Bronchitis With Bronchospasm (Wheezing) ([facility]) Additional Instructions: You were seen with fever and upper respiratory symptoms.Testing for influenza and strep were negative, chest x-ray is clear. Given the pandemic and coronavirus concerns, your were made a person of interest and a swab was collected and will be sent for COVID-19 evaluation. You will need to self quarantine until you get the results. Avoid anti-inflammatory medications, you may use Tylenol for fever, aches and pains. Please return to the hospital if her symptoms are worsening or development of shortness of breath. You were given antibiotics to treat of bronchitis related to asthma history. Also a refill for your inhaler is provided tonight. Please follow-up with your primary care doctor regarding your asthmatic bronchitis or if the symptoms are worsening return to the emergency department for further evaluation and treatment. HOME CARE INSTRUCTIONS & INFORMATION: Thank you for choosing us for your medical needs. We hope you're satisfied with the care you received. After you leave, you must properly care for your problem and, at the same time, observe its progress. Any condition can change. Some illnesses can change rapidly over hours or days. If your condition worsens, return to the Emergency Department or see your physician promptly. ABOUT YOUR X-RAYS AND EKG'S: If you had an EKG or X-rays taken, they have been read by the Emergency Physician. The X-rays and EKG's will also be read by a Radiologist or Sample Sawyer within 24 hours. If discrepancies are noted, you will be notified by telephone. Please be certain the ED has a correct telephone number & address where you can be reached. Also, realize that some fractures or abnormalities do not show up on initial X-rays. If your symptoms continue, see your physician. ABOUT YOUR LABORATORY TEST: If you had laboratory tests, the results have been reviewed by the Emergency Physician. Some test results (for example cultures) may not be available for several days. You will be contacted if any test result shows you need additional treatment. Please be certain the ED has a correct tel [place] number and address where you can be reached. ABOUT YOUR MEDICATIONS: You will receive instructions on how to take your medicine on the prescription label you receive. Additional information may be provided by the Pharmacy. If you have questions afterwards, call the ED for clarification or further instructions. Some prescribed medications may cause drowsiness. Do not perform tasks such as driving a car or operating machinery without consulting your Pharmacist. If you feel you need a refill of pain medication, your condition will need re-evaluation. Please do not call for a refill of any medication. ABOUT YOUR SIGNATURE: Signature of this document acknowledges to followin. Understanding that you received emergency treatment and that you may be released before al medical problems are known or treated. Please be certain the ED has a correct phone number & address where you can be reached. 2. Acknowledgement that you will arrange for follow-up care as recommended. 3. Authorization for the Emergency Physician to provide information to your follow-up Physician in order to maximize your care. AT ANY TIME, IF YOUR SYMPTOMS CHANGE SIGNIFICANTLY OR WORSEN OR YOU DEVELOP NEW SYMPTOMS, RETURN TO THE EMERGENCY DEPARTMENT IMMEDIATELY FOR RE-EVALUATION. OUR GOAL IS TO PROVIDE EXCELLENT MEDICAL CARE! WE HOPE THAT WE HAVE MET YOUR EXPECTATIONS DURING YOUR EMERGENCY DEPARTMENT VISIT AND THAT YOU FEEL YOU HAVE RECEIVED EXCELLENT CARE! Prescriptions: Cefdinir 300 mg PO BID #20 capsule Albuterol Sulfate [Proair HFA Inhalation Aerosol 8.5 gm MDI] 2 puff IH Q4H PRN #1 mdi PRN Reason: [facility]errals: [facility] [NO LOCAL MD] - Follow up as needed
[2020-03-07 23:42] LABS: ABSOLUTE EOSINOPHILS # (AUTO) 0.2 10^3/uL (0.0-0.6); ABSOLUTE LYMPHOCYTES (AUTO) 2.7 10^3/uL (0.5-4.7); ABSOLUTE MONOCYTES (AUTO) 0.4 10^3/uL (0.1-1.4); ABSOLUTE NEUT (AUTO) 3.4 10^3/uL (1.7-8.2); BASOPHILS % (AUTO) 0.3 % (0-2); EOSINOPHILS % (AUTO) 2.6 % (0-6); HEMATOCRIT 40.2 % (36.0-47.0); LYMPHOCYTES % (AUTO) 40.5 % (13-45); MEAN CORPUSCULAR HEMOGLOBIN 31.3 pg (27.0-33.4); MEAN CORPUSCULAR HGB CONC 34.8 g/dL (32.0-36.0); MEAN CORPUSCULAR VOLUME 90 fl (80-97); MONOCYTES % (AUTO) 5.4 % (3-13); PLATELET COUNT 246 10^3/uL (150-450); RED BLOOD COUNT 4.47 10^6/uL (3.72-5.28); RED CELL DISTRIBUTION WIDTH 14.8 % (11.5-14.0); SEGMENTED NEUTROPHILS % (AUTO) 51.2 % (42-78); TOTAL CELLS COUNTED % (AUTO) 100 %; WHITE BLOOD COUNT 6.7 10^3/uL (4.0-10.5)
--- NOTE | 2020-03-07 23:44 | RADIOLOGY REPORT (SQ) ---
EXAM DESCRIPTION: XR CHEST 1 VIEW COMPLETED DATE/TME: 03/07/2020 22:34 CLINICAL HISTORY: 54 years, Female, Shortness of breath EXAM DESCRIPTION: CLINICAL HISTORY: Shortness of breath COMPARISON: 12/19/2019 FINDINGS: Single view of the chest is submitted. Cardiac silhouette is normal. No focal parenchymal or pleural disease. No acute bony abnormality. There is no significant pulmonary vascular engorgement. IMPRESSION: No evidence of acute cardiopulmonary disease.
[2020-03-07 23:45] LABS: A TYPE INFLUENZA AG NEGATIVE (NEGATIVE); B INFLUENZA AG NEGATIVE (NEGATIVE)
[2020-03-07 23:53] LABS: ALBUMIN 4.8 g/dL (3.5-5.0); ALKALINE PHOSPHATASE 119 U/L (38-126); ANION GAP 6 (5-19); ASPARTATE AMINO TRANSFERASE 30 U/L (14-36); BILIRUBIN,DIRECT 0.1 mg/dL (0.0-0.4); BILIRUBIN,TOTAL 0.5 mg/dL (0.2-1.3); BLOOD UREA NITROGEN 11 mg/dL (7-20); CALCIUM 9.7 mg/dL (8.4-10.2); CARBON DIOXIDE 30 mmol/L (22-30); CHLORIDE 101 mmol/L (98-107); GLUCOSE 88 mg/dL (75-110); POTASSIUM 4.5 mmol/L (3.6-5.0); TOTAL PROTEIN 8.1 g/dL (6.3-8.2)
[2020-03-08] MEDS ORDERED: IPRATROPIUM/ALBUTEROL 0.5-2.5 MG/3 ML AMPUL NEB ONE (00:20)
[2020-03-08] MEDS ORDERED: CEFUROXIME 500 MG TABLET PO ONE (01:49)
[2020-03-08] MEDS ORDERED: CEFUROXIME 500 MG TABLET ONE (02:14)
[2020-03-08 02:32] VITALS: BP 108/64
--- NOTE | 2020-03-08 22:58 | EKG REPORT ---
SEVERITY:- OTHERWISE NORMAL ECG - SINUS RHYTHM VENTRICULAR PREMATURE COMPLEX : Confirmed by: Gi Russo 08-Mar-2020 22:57:04
== END 2020-03-08 02:42 | disposition home or self-care (01) ==
LOC: ER 21:45
DX: J45.21 Mild intermittent asthma with (acute) exacerbation (principal); Z20.828 Contact with and (suspected) exposure to other viral communicable diseases; I49.3 Ventricular premature depolarization; R50.9 Fever, unspecified; R06.02 Shortness of breath; R05 Cough; R53.83 Other fatigue; R52 Pain, unspecified; R00.0 Tachycardia, unspecified; I10 Essential (primary) hypertension; Z87.01 Personal history of pneumonia (recurrent)
CPT/HCPCS: 94640 ×2; 99285; 36415; 87070; 87880; 85025; 87635; 80053; 87804; 71045; 93005; 93010; J3490; J7620 ×2

== ENCOUNTER 2020-05-22 02:10 | Inpatient (IN) | payer SELFPAY ==
[2020-05-22] MEDS ORDERED: MIDAZOLAM 2 MG/2 ML INJ IV ONE ×3 (02:19→13:43)
[2020-05-22] MEDS ORDERED: MIDAZOLAM HCL 50 MG/100 ML RTUINJ IV PRN ×2 (02:20→02:36)
[2020-05-22] MEDS ORDERED: ETOMIDATE INJ/PF 20 MG/10 ML SDV IV ONE (02:34)
[2020-05-22] MEDS ORDERED: SUCCINYLCHOLINE CHLORIDE INJ 200 MG/10 ML VIAL IV ONE (02:35)
[2020-05-22] MEDS ORDERED: FENTANYL CITRATE INJ/PF 100 MCG/2 ML AMPUL IV ONE ×8 (02:45→12:30)
--- NOTE | 2020-05-22 02:45 | ER Document Report ---
ED General - General Stated Complaint: DIFFICULTY BREATHING Time Seen by Provider: 05/22/20 02:10 Information source: Emergency Med Personnel TRAVEL OUTSIDE OF THE [place] IN LAST 30 DAYS: No - HPI Notes: 54-year-old female history of asthma presents with respiratory failure. As per EMS, patient activated EMS for shortness of breath and when they arrived on scene patient was given herself a nebulizer was coherent. Gave patient 2 DuoNeb's and then patient severely decompensated became cyanotic and hypoxic. Unable to obtain any other history from patient secondary to acuity/altered mental status. - Related Data Allergies/Adverse Reactions: No Known Allergies Allergy (Verified 10/07/19 21:39) Past Medical History - General Information source: Emergency Med Personnel - Social History Smoking Status: Unknown if Ever Smoked Family History: Hypertension, Other - asthma,. denies: CAD, DM, Malignancy - Past Medical History Cardiac Medical History: Reports: Hx Hypertension Denies: Hx Atrial Fibrillation, Hx Congestive Heart Failure, Hx Coronary Artery Disease, Hx DVT, Hx Heart Attack, Hx Hypercholesterolemia, Hx Peripheral Vascular Disease, Hx Pulmonary Embolism Pulmonary Medical History: Reports: Hx Asthma, Hx Bronchitis, Hx Pneumonia, Hx Intubation, Hx Respiratory Failure Denies: Hx COPD, Hx Tuberculosis Neurological Medical History: Denies: Hx Seizures Endocrine Medical History: Reports: Hx Hyperthyroidism. Denies: Hx Diabetes Mellitus Type 1, Hx Diabetes Mellitus Type 2, Hx Hypothyroidism Renal/ Medical History: Denies: Hx Peritoneal Dialysis GI Medical History: Denies: Hx Cirrhosis, Hx Crohn's Disease, Hx Gastroesophageal Reflux Disease, Hx Hepatitis, Hx Ulcerative Colitis Musculoskeletal Medical History: Denies Hx Arthritis, Denies Hx Gout Skin Medical History: Denies Hx Eczema, Denies Hx Psoriasis Psychiatric Medical History: Denies: Hx Depression Infectious Medical History: Denies: Hx Hepatitis Past Surgical History: Reports: Hx Abdominal Surgery - UMBILICAL HERNIA REPAIR, Hx Herniorrhaphy - Umbilical herniorrhaphy, Hx Umbilical Hernia - Immunizations Immunizations up to date: Yes Hx Diphtheria, Pertussis, Tetanus Vaccination: Yes Hx Pneumococcal Vaccination: 03/25/14 Review of Systems - Review of Systems -: Yes ROS unobtainable due to patient's medical condition Physical Exam - Vital signs Vitals: Pulse Ox 95 05/22/20 02:10 - Notes Notes: PHYSICAL EXAMINATION: GENERAL: Cyanotic obtunded middle-aged woman. HEAD: Atraumatic, normocephalic. EYES: Pupils equal round and appropriate constriction, sclera anicteric, conjunctiva are normal. ENT: nares patent, moist mucous membranes. NECK: Normal range of motion, supple without lymphadenopathy LUNGS: Poor air movement bilaterally, weak breathing, cyanotic, minimally responsive HEART: Tachycardic without any murmurs rubs or gallops ABDOMEN: Soft, no masses EXTREMITIES: Normal range of motion, no pitting or edema, cyanotic NEUROLOGICAL: Withdrawing to pain, obtunded SKIN: Dry, cyanotic Course - Re-evaluation Re-evalutation: 05/22/20 03:28 Patient arrived to ED in acute respiratory failure, was saturating 39% on nonrebreather with good waveform when I entered patient's room after being immediately cough patient's bedside upon patient's arrival by RN. Patient was quickly moved to the trauma bay where IO was placed, patient was bagged with BVM and was able to achieve sats of high 90s, intubation meds were given and I intubated her on first pass after clearing airway of copious vomit. Patient's blood pressure decreased after intubation but has been maintaining maps greater than 65. Patient was initially fighting vent and biting tube and additional boluses were given of sedation meds with good response, initial VBG severely acidotic and hypercarbic, repeat being done now. ST depressions on EKG likely secondary to severe hypoxia, trop and aspirin ordered, no STEMI. Patient has been accepted to ICU and evaluated by ICU DIVISION LEADER Pj - Vital Signs Vital signs: Temp Pulse Resp BP Pulse Ox 97.9 F 88 16 109/66 100 05/22/20 08:00 05/22/20 08:00 05/22/20 08:00 05/22/20 07:50 05/22/20 09:43 - Laboratory Result Diagrams: 05/22/20 02:33 05/22/20 02:33 Laboratory results interpreted by me: 05/22/20 05/22/20 05/22/20 02:18 02:33 02:33 WBC 14.9 H MCV 98 H Seg Neuts % (Manual) 24 L Lymphocytes % (Manual) 58 H Abs Lymphs (Manual) 10.1 H Glucose 218 H POC Glucose 201 H Lactic Acid AST 37 H TSH Free T4 Urine Protein Urine Glucose (UA) Urine Blood 05/22/20 05/22/2020 02:33 02:33 02:33 WBC MCV Seg Neuts % (Manual) Lymphocytes % (Manual) Abs Lymphs (Manual) Glucose POC Glucose Lactic Acid 4.4 H AST TSH 7.67 H Free T4 Urine Protein >=500 H Urine Glucose (UA) 50 H Urine Blood SMALL H 05/22/20 02:33 WBC MCV Seg Neuts % (Manual) Lymphocytes % (Manual) Abs Lymphs (Manual) Glucose POC Glucose Lactic Acid AST TSH Free T4 0.76 L Urine Protein Urine Glucose (UA) Urine Blood - EKG Interpretation by Me Additional EKG results interpreted by me: 05/22/20 03:31 Sinus tachycardia, no significant ST elevations, inferior ST depressions, no significant T wave abnormalities Procedures - Intubation Orotracheal Time of Intubation: 02:10 Airway evaluation: Copious secretions, Large tongue, Obese Medications: Etomidate, Succinylcholine Intubation method: Orotracheal Blade type: Jeremias Blade size: 3 Equipment used: Glidescope ETT size: 8.0 ETT secured at: Teeth ETT secured at (cm): 22 Breath Sounds after Intubation: Equal End tidal CO2 confirmed: Yes Post Intubation Xray: Yes Notes: 05/22/20 02:58 Pt has copious vomit in airway and was actively vomiting at time of intubation. Intubated successfully after suctioning on first pass without any significant desaturation. Critical Care Note - Critical Care Note Total time excluding time spent on procedures (mins): 60 - Sometime on 3 3, reassessing patient, repeatedly administering sedation Discharge - Discharge Clinical Impression: Asthma exacerbation Qualifiers: Asthma severity: severe Asthma persistence: unspecified Qualified Code(s): J45.901 - Unspecified asthma with (acute) exacerbation Condition: Critical Disposition: ADMITTED INPATIENT Unit Admitted: ICU
[2020-05-22] MEDS ORDERED: NORMAL SALINE 1000 ML 1,000 ML IV ONE ×3 (02:47→04:38)
[2020-05-22] MEDS ORDERED: METHYLPREDNISOLONE INJ 125 MG/2 ML SDV IV ONE (02:48)
[2020-05-22] MEDS ORDERED: ALBUTEROL SULFATE 0.083% NEB 2.5 MG/3 ML AMPUL NEB ONE ×2 (02:49→09:05)
[2020-05-22 03:14] LABS: HEMATOCRIT 43.2 % (36.0-47.0); MEAN CORPUSCULAR HEMOGLOBIN 31.8 pg (27.0-33.4); MEAN CORPUSCULAR HGB CONC 32.3 g/dL (32.0-36.0); MEAN CORPUSCULAR VOLUME 98 fl (80-97); PLATELET COUNT 305 10^3/uL (150-450); RED BLOOD COUNT 4.39 10^6/uL (3.72-5.28); RED CELL DISTRIBUTION WIDTH 13.9 % (11.5-14.0); WHITE BLOOD COUNT 14.9 10^3/uL (4.0-10.5)
[2020-05-22 03:18] LABS: APPEARANCE,URINE SLIGHTLY-CLOUDY; BILIRUBIN,URINE NEGATIVE (NEGATIVE); COLOR,URINE YELLOW; GLUCOSE, URINE 50 mg/dL (NEGATIVE); KETONES,URINE NEGATIVE (NEGATIVE); LEUKOCYTE ESTERASE,URINE NEGATIVE (NEGATIVE); NITRITE,URINE NEGATIVE (NEGATIVE); PROTEIN,URINE >=500 mg/dL (NEGATIVE); URINE SPECIFIC GRAVITY 1.011; UROBILINOGEN,URINE NEGATIVE mg/dL (<2.0)
[2020-05-22 03:30] LABS: ALBUMIN 4.6 g/dL (3.5-5.0); ALKALINE PHOSPHATASE 108 U/L (38-126); ANION GAP 16 (5-19); ASPARTATE AMINO TRANSFERASE 37 U/L (14-36); BILIRUBIN,TOTAL 0.3 mg/dL (0.2-1.3); BLOOD UREA NITROGEN 16 mg/dL (7-20); CALCIUM 9.8 mg/dL (8.4-10.2); CARBON DIOXIDE 22 mmol/L (22-30); CHLORIDE 104 mmol/L (98-107); GLUCOSE 218 mg/dL (75-110); POTASSIUM 4.9 mmol/L (3.6-5.0); TOTAL PROTEIN 7.7 g/dL (6.3-8.2)
[2020-05-22 03:32] LABS: URINE AMPHETAMINES SCREEN NEGATIVE; URINE BARBITURATES SCREEN NEGATIVE; URINE BENZODIAZEPINES SCREEN NEGATIVE; URINE COCAINE SCREEN NEGATIVE; URINE MARIJUANA (THC) SCREEN NEGATIVE; URINE METHADONE SCREEN NEGATIVE; URINE PHENCYCLIDINE SCREEN NEGATIVE
[2020-05-22] MEDS: ASPIRIN 300 MG SUPP, RECTAL PR ONE ×2 (03:33→04:19)
[2020-05-22 03:38] LABS: ALCOHOL < 10 mg/dL (NONE DETECTED)
[2020-05-22 03:41] LABS: ABSOLUTE LYMPHOCYTES# (MANUAL) 10.1 10^3/uL (0.5-4.7); BASOPHILS % (MANUAL) 0 % (0-2); EOSINOPHILS % (MANUAL) 1 % (0-6); LYMPHOCYTES % (MANUAL) 58 % (13-45); MONOCYTES % (MANUAL) 7 % (3-13); SEGMENTED NEUTROPHILS % (MAN) 24 % (42-78); TOTAL CELLS COUNTED 100
[2020-05-22 03:43] LABS: PLATELET COMMENT ADEQUATE; TEAR DROP CELLS SLIGHT; TOXIC GRANULATION SLIGHT
--- NOTE | 2020-05-22 03:45 | RADIOLOGY REPORT (SQ) ---
CLINICAL INDICATION: respiratory failure. TECHNIQUE: A single portable AP view was obtained of the chest at 0308 hours. Additional repeat image COMPARISON: March 07, 2020. FINDINGS: The cardiomediastinal silhouette is normal. The lungs demonstrate chronic changes. No acute process or adverse change. No evidence of effusion or pneumothorax. The visualized bones are unremarkable. Endotracheal tube tip in good position. Nasogastric tube tip and sidehole project over the stomach, satisfactory IMPRESSION: Satisfactory placement of supportive appliances..
[2020-05-22 03:46] LABS: VENOUS BLOOD BASE EXCESS -8.6 mmol/L; VENOUS BLOOD HCO3 23.9 mmol/L (20-32)
[2020-05-22 03:47] LABS: VENOUS BLOOD PCO2 91.4 mmHg (35-63); VENOUS BLOOD PH 7.04 (7.30-7.42)
[2020-05-22] MEDS ORDERED: RINGERS SOLUTION,LACTATED 1,000 ML IV ONE (03:51)
[2020-05-22] MEDS ORDERED: KETAMINE HCL INJ 500 MG/10 ML VIAL IV ONE ×3 (04:21→18:49)
[2020-05-22] MEDS ORDERED: PROPOFOL 1,000 MG/100 ML INFUS..BTL IV PRN ×2 (04:28→13:42)
[2020-05-22] MEDS ORDERED: KETAMINE HCL INJ 500 MG/10 ML VIAL IV STA (04:33)
[2020-05-22] MEDS ORDERED: VANCOMYCIN HCL INJ 1000 MG VIAL IV ONE (04:40)
[2020-05-22] MEDS ORDERED: PIPERACILLIN/TAZOBACTAM 4.5 GM VIAL IV SCH (04:45)
[2020-05-22] MEDS ORDERED: FENTANYL CITRATE INJ/PF 250 MCG/5 ML AMPULE IV ONE (06:01)
--- NOTE | 2020-05-22 06:37 | CRITICAL CARE ADMISSION REPORT ---
<KIMBERLYWILLIAM GRAHAM Rey - Last Filed: 05/22/20 06:20> HPI Date:: 05/22/20 Time:: 04:00 Reason for ICU Reason:: Hypoxic Respiratory Failure Admission Date/Time & PCP: Admission Date/Time: 05/22/20 03:23 Primary Care Provider: HPI: Ms. Knott is a 54-year-old female with a past medical history of asthma, presented to the ED with respiratory failure. Patient activated EMS for shortness of breath and when they arrived on scene patient was having herself a nebulizer. EMS then gave patient 2 duo nebs and patient severely decompensated became cyanotic and hypoxic. Upon arrival to the ED the patient was saturating 39% on nonrebreather. She was bagged with BVM and was able to achieve sats of high 90s. Patient was successfully intubated. Post intubation VBG revealed pH of 7.04 PCO2 of 91.4. She has a mild leukocytosis with a white count of 14.9 she is hypothermic with a temp 94. Lactic acid was 4.4 she was given 2 L normal saline bolus repeat lactic acid 0.5. EKG revealed ST depressions troponin less than 0.012 ST depressions most likely from hypoxia. I saw the patient in the ER given concerns of sepsis I ordered Zosyn and one-time dose of vancomycin blood cultures were ordered prior to antibiotics being given. She is admitted to the ICU for further management - Diagnosis/Plan (1) Acute respiratory failure with hypoxia Is this a current diagnosis for this admission?: Yes Plan: Patient intubated and sedated Repeat ABGs Daily chest x-ray (2) Sepsis Qualifiers: Sepsis type: sepsis due to unspecified organism Severe sepsis acute organ dysfunction type: acute respiratory failure Acute respiratory failure type: with hypoxia Is this a current diagnosis for this admission?: Yes Plan: Cultures x2 ordered Send tracheal aspirate for culture and Gram stain Start Zosyn 4.5 g every 8 hours Vancomycin 1 g IV x1 Continue to volume resuscitate (3) TSH elevation Is this a current diagnosis for this admission?: Yes Plan: No known history of hypothyroidism We will check T3 and free T4 Past Medical History Cardiac Medical History: Reports: Hypertension Denies: Atrial Fibrillation, Congestive Heart Failure, Coronary Artery Disease, DVT, Myocardial Infarction, Hyperlipidema, Peripheral Vascular Disease, Pulmonary Embolism Pulmonary Medical History: Reports: Asthma, Bronchitis, Intubation, Pneumonia, Respiratory Failure Denies: Chronic Obstructive Pulmonary Disease (COPD), Tuberculosis Neurological Medical History: Denies: Seizures Endocrine Medical History: Reports: Hyperthyroidism Denies: Diabetes Mellitus Type 1, Diabetes Mellitus Type 2, Hypothyroidism GI Medical History: Denies: Cirrhosis, Crohn's Disease, Gastroesophageal Reflux Disease, Hepatitis, Ulcerative Colitis Musculoskeltal Medical History: Denies: Arthritis, Gout Skin Medical History: Denies: Eczema, Psoriasis Psychiatric Medical History: Denies: Depression Hematology: Denies: Anemia, Bleeding Tendencies Past Surgical History Past Surgical History: Reports: Herniorrhaphy - Umbilical herniorrhaphy Social/Family History - Social History Smoking Status: Unknown if Ever Smoked Frequency of Alcohol Use: None Hx Recreational Drug Use: No Drugs: None Hx Prescription Drug Abuse: No - Medication/Allergies Home Medications: Albuterol Sulfate [Ventolin 0.083% Neb 2.5 mg/3 mL Ampul] 2.5 mg NEB RTQID 12/20/19 Albuterol Sulfate [Proair HFA Inhalation Aerosol 8.5 gm MDI] 2 puff IH Q6HP PRN 05/22/20 Methimazole [Tapazole 5 mg Tablet] 10 mg PO DAILY 05/22/20 Allergies/Adverse Reactions: No Known Allergies Allergy (Verified 10/07/19 21:39) Review of Systems ROS unobtainable: Due to endotracheal tube Physical Exam Vital Signs: Temp Pulse Resp BP Pulse Ox 16 108/76 97 05/22/20 04:02 05/22/20 04:02 05/22/20 04:02 Intake & Output 05/20/20 05/21/20 05/22/20 06:59 06:59 06:59 Intake Total 2038 Balance 2038 Weight 81.6 kg Weight/Height Weight 81.6 kg Height 5 ft 5 in General appearance: PRESENT: severe distress Head exam: PRESENT: atraumatic Eye exam: PRESENT: PERRLA Mouth exam: PRESENT: moist Neck exam: PRESENT: full ROM Respiratory exam: PRESENT: decreased breath sounds Cardiovascular exam: PRESENT: RRR, +S1, +S2 Pulses: PRESENT: normal radial pulses GI/Abdominal exam: PRESENT: normal bowel sounds Extremities exam: PRESENT: full ROM Neurological exam: PRESENT: other - Sedated Tubes/Lines: PRESENT: Endotracheal Tube Laboratory/Radiographs Laboratory Results: 05/22/20 02:33 05/22/20 02:33 05/22/20 05/22/20 05/22/20 02:33 02:33 02:33 WBC 14.9 H RBC 4.39 Hgb 14.0 Hct 43.2 MCV 98 H MCH 31.8 MCHC 32.3 RDW 13.9 Plt Count 305 Seg Neutrophils % Not Reportable VBG pH VBG pCO2 VBG HCO3 VBG Base Excess Sodium 141.6 Potassium 4.9 Chloride 104 Carbon Dioxide 22 Anion Gap 16 BUN 16 Creatinine 0.74 Est GFR ( Amer) > 60 Glucose 218 H Lactic Acid 4.4 H Calcium 9.8 Total Bilirubin 0.3 AST 37 H Alkaline Phosphatase 108 Total Protein 7.7 Albumin 4.6 TSH Urine Color Urine Appearance Urine pH Ur Specific [place] Urine Protein Urine Glucose (UA) Urine Ketones Urine Blood Urine Nitrite Ur Leukocyte Esterase Urine WBC (Auto) Urine RBC (Auto) 05/22/20 05/22/20 05/22/20 02:33 02:33 02:33 WBC RBC Hgb Hct MCV MCH MCHC RDW Plt Count Seg Neutrophils % VBG pH Cancelled VBG pCO2 Cancelled VBG HCO3 Cancelled VBG Base Excess Cancelled Sodium Potassium Chloride Carbon Dioxide Anion Gap BUN Creatinine Est GFR ( Amer) Glucose Lactic Acid Calcium Total Bilirubin AST Alkaline Phosphatase Total Protein Albumin TSH 7.67 H Urine Color YELLOW Urine Appearance SLIGHTLY-CLOUDY Urine pH 5.0 Ur Specific [place] 1.011 Urine Protein >=500 H Urine Glucose (UA) 50 H Urine Ketones NEGATIVE Urine Blood SMALL H Urine Nitrite NEGATIVE Ur Leukocyte Esterase NEGATIVE Urine WBC (Auto) 4 Urine RBC (Auto) 1 05/22/20 05/22/20 03:29 05:55 WBC RBC Hgb Hct MCV MCH MCHC RDW Plt Count Seg Neutrophils % VBG pH 7.04 L* VBG pCO2 91.4 H* VBG HCO3 23.9 VBG Base Excess -8.6 Sodium Potassium Chloride Carbon Dioxide Anion Gap BUN Creatinine Est GFR ( Amer) Glucose Lactic Acid < 0.5 L Calcium Total Bilirubin AST Alkaline Phosphatase Total Protein Albumin TSH Urine Color Urine Appearance Urine pH Ur Specific [place] Urine Protein Urine Glucose (UA) Urine Ketones Urine Blood Urine Nitrite Ur Leukocyte Esterase Urine WBC (Auto) Urine RBC (Auto) 05/22/20 02:33 Troponin I < 0.012 Impressions: Chest X-Ray 05/22/20 02:20 IMPRESSION: Satisfactory placement of supportive appliances.. All labs, radiographs, diagnostic studies and EKGs were personally reviewed: Yes In addition, reports of radiographic and diagnostic studies were read: Yes Critical Time Critical Time (minutes): 75 -: The care of a critically ill patient is dynamic. This note represents a static moment in the admission process. Orders and treatments may be given simultane ously and urgently, and time is not claims representative of the treatment process. This patient requires Critical Care secondary to life threatening organ or limb dysfunction. Without Critical Care services, the patient is at risk for increased mortality and morbidity. <PHYLLIS ALBRIGHT - Last Filed: 05/22/20 12:17> HPI Admission Date/Time & PCP: Admission Date/Time: 05/22/20 03:23 Primary Care Provider: HPI: I personally saw and evaluated above patient after admission to the ICU. Furthermore, discussed the findings, case and care with COSTUME RENTAL CLERK Barrera. I am in agreement with the above. Due to the complex nature of the patient's presentation the face of [id number] pandemic my presence at the bedside was necessary. I examined the patient using the critical care ultrasound protocol found the patient had significant "A"' lines on the right but, had both "A" and "B" lines on left. There was not severe comet tails nor was there typical "lightbeam" signs. The "B" lines are impressive enough to obtain more formal SARS-Covid testing. The patient has atypical hypercarbia for a routine asthma attack. Bedside echocardiogram did not show significant reduction in function however windows were difficult to obtain. Will obtain more formal echocardiogram. In the patient appears to have a pneumonitis we will also check a viral culture to rule out RSV and metapneumovirus Until COVID can be ruled out will give MDI via the ventilator. Placed her on Solu-Medrol for exacerbation of her asthma. Patient's blood pressure was low normal and she was placed on Versed drip. Have started the use of ketamine which will help with sedation and also attenuate bronchospasm Will also follow-up on ABG Her skin appears to be well-hydrated. Ultrasound of her abdomen shows a well filled non-respirophasic IVC without enlarged right ventricle. We will continue to monitor labs and respiratory mechanics Total CC time: 60 minutes excluding procedures, teaching and education. - Diagnosis/Plan (1) Acute respiratory failure with hypoxia and hypercapnia Is this a current diagnosis for this admission?: Yes (2) Lactic acidosis Is this a current diagnosis for this admission?: Yes (3) SIRS (systemic inflammatory response syndrome) Is this a current diagnosis for this admission?: Yes (4) Person under investigation for severe acute respiratory syndrome coronavirus 2 (SARS-CoV-2) infection Is this a current diagnosis for this admission?: Yes (5) Asthma with status asthmaticus in adult Qualifiers: Asthma severity: severe Asthma persistence: persistent Qualified Code(s): J45.52 - Severe persistent asthma with status asthmaticus Is this a current diagnosis for this admission?: Yes (6) Hyperthyroidism Is this a current diagnosis for this admission?: Yes Physical Exam Vital Signs: Temp Pulse Resp BP Pulse Ox 97.5 F 95 16 93/54 L 96 05/22/20 10:05 05/22/20 10:00 05/22/20 10:05 05/22/20 10:05 05/22/20 10:04 Intake & Output 05/21/20 05/22/20 05/23/20 06:59 06:59 06:59 Intake Total 3071 354 Output Total 275 Balance 3071 79 Weight 81.6 kg 85.8 kg Weight/Height Weight 85.8 kg Height 5 ft 5 in Laboratory/Radiographs Laboratory Results: 05/22/20 02:33 05/22/20 02:33 05/22/20 05/22/20 05/22/20 02:33 02:33 02:33 WBC 14.9 H RBC 4.39 Hgb 14.0 Hct 43.2 MCV 98 H MCH 31.8 MCHC 32.3 RDW 13.9 Plt Count 305 Seg Neutrophils % Not Reportable Carbonic Acid HCO3/H2CO3 Ratio ABG pH ABG pCO2 ABG pO2 ABG HCO3 ABG O2 Saturation ABG Base Excess VBG pH VBG pCO2 VBG HCO3 VBG Base Excess FiO2 Sodium 141.6 Potassium 4.9 Chloride 104 Carbon Dioxide 22 Anion Gap 16 BUN 16 Creatinine 0.74 Est GFR ( Amer) > 60 Glucose 218 H Lactic Acid 4.4 H Calcium 9.8 Ferritin Total Bilirubin 0.3 AST 37 H Alkaline Phosphatase 108 C-Reactive Protein Total Protein 7.7 Albumin 4.6 TSH Free T4 Free T3 pg/mL Urine Color Urine Appearance Urine pH Ur Specific [place] Urine Protein Urine Glucose (UA) Urine Ketones Urine Blood Urine Nitrite Ur Leukocyte Esterase Urine WBC (Auto) Urine RBC (Auto) 05/22/20 05/22/20 05/22/20 02:33 02:33 02:33 WBC RBC Hgb Hct MCV MCH MCHC RDW Plt Count Seg Neutrophils % Carbonic Acid HCO3/H2CO3 Ratio ABG pH ABG pCO2 ABG pO2 ABG HCO3 ABG O2 Saturation ABG Base Excess VBG pH Cancelled VBG pCO2 Cancelled VBG HCO3 Cancelled VBG Base Excess Cancelled FiO2 Sodium Potassium Chloride Carbon Dioxide Anion Gap BUN Creatinine Est GFR ( Amer) Glucose Lactic Acid Calcium Ferritin Total Bilirubin AST Alkaline Phosphatase C-Reactive Protein Total Protein Albumin TSH 7.67 H Free T4 Free T3 pg/mL Urine Color YELLOW Urine Appearance SLIGHTLY-CLOUDY Urine pH 5.0 Ur Specific [place] 1.011 Urine Protein >=500 H Urine Glucose (UA) 50 H Urine Ketones NEGATIVE Urine Blood SMALL H Urine Nitrite NEGATIVE Ur Leukocyte Esterase NEGATIVE Urine WBC (Auto) 4 Urine RBC (Auto) 1 05/22/20 05/22/20 05/22/20 02:33 02:33 03:29 WBC RBC Hgb Hct MCV MCH MCHC RDW Plt Count Seg Neutrophils % Carbonic Acid HCO3/H2CO3 Ratio ABG pH ABG pCO2 ABG pO2 ABG HCO3 ABG O2 Saturation ABG Base Excess VBG pH 7.04 L* VBG pCO2 91.4 H* VBG HCO3 23.9 VBG Base Excess -8.6 FiO2 Sodium Potassium Chloride Carbon Dioxide Anion Gap BUN Creatinine Est GFR ( Amer) Glucose Lactic Acid Calcium Ferritin 62.50 Total Bilirubin AST Alkaline Phosphatase C-Reactive Protein < 5.0 Total Protein Albumin TSH Free T4 0.76 L Free T3 pg/mL 3.72 Urine Color Urine Appearance Urine pH Ur Specific [place] Urine Protein Urine Glucose (UA) Urine Ketones Urine Blood Urine Nitrite Ur Leukocyte Esterase Urine WBC (Auto) Urine RBC (Auto) 05/22/20 05/22/20 05:55 08:30 WBC RBC Hgb Hct MCV MCH MCHC RDW Plt Count Seg Neutrophils % Carbonic Acid 2.25 H HCO3/H2CO3 Ratio 11:1 ABG pH 7.16 L* ABG pCO2 74.6 H* ABG pO2 582.5 H ABG HCO3 26.1 H ABG O2 Saturation 99.9 H ABG Base Excess -4.2 VBG pH VBG pCO2 VBG HCO3 VBG Base Excess FiO2 100% Sodium Potassium Chloride Carbon Dioxide Anion Gap BUN Creatinine Est GFR ( Amer) Glucose Lactic Acid < 0.5 L Calcium Ferritin Total Bilirubin AST Alkaline Phosphatase C-Reactive Protein Total Protein Albumin TSH Free T4 Free T3 pg/mL Urine Color Urine Appearance Urine pH Ur Specific [place] Urine Protein Urine Glucose (UA) Urine Ketones Urine Blood Urine Nitrite Ur Leukocyte Esterase Urine WBC (Auto) Urine RBC (Auto) 05/22/20 02:33 Troponin I < 0.012 Impressions: Chest X-Ray 05/22/20 02:20 IMPRESSION: Satisfactory placement of supportive appliances.. Critical Time -: The care of a critically ill patient is dynamic. This note represents a static moment in the admission process. Orders and treatments may be given simultaneously and urgently, and time is not claims representative of the treatment process. This patient requires Critical Care secondary to life threatening organ or limb dysfunction. Without Critical Care services, the patient is at risk for increased mortality and morbidity.
[2020-05-22 07:17] LABS: FREE T3 3.72 pg/mL (2.77-5.27); FREE T4 (FREE THYROXINE) 0.76 ng/dL (0.78-2.19)
[2020-05-22] MEDS: FENTANYL CITRATE/PF 600 MCG/60 ML BAG IV PRN ×3 (07:20→20:09)
[2020-05-22] MEDS: HEPARIN SOD (PORCINE) 5,000 UNIT/ML 1 ML VIAL SUBCUT SCH ×3 (07:45→21:54)
[2020-05-22] MEDS ORDERED: PHARMACY COMMUNICATION ORDER MC NR (08:15)
[2020-05-22 08:43] LABS: ARTERIAL BLOOD BASE EXCESS -4.2 mmol/L; ARTERIAL BLOOD H2CO3 2.25 mmol/L (1.05-1.35); ARTERIAL BLOOD HCO3 26.1 mmol/L (20-24); ARTERIAL BLOOD O2 SATURATION 99.9 % (94-98); ARTERIAL BLOOD PO2 582.5 mmHg (80-100); ARTERIAL BLOOD TOTAL CO2 28.3 mmol/L (21-25)
[2020-05-22 08:50] LABS: ARTERIAL BLOOD FIO2 100%
[2020-05-22 08:51] LABS: ARTERIAL BLOOD PH 7.16 (7.35-7.45)
[2020-05-22 08:52] LABS: ARTERIAL BLOOD PCO2 74.6 mmHg (35-45)
[2020-05-22 09:13] LABS: C-REACTIVE PROTEIN < 5.0 mg/L (<10.0)
--- NOTE | 2020-05-22 10:08 | EKG REPORT ---
SEVERITY:- NORMAL ECG - SINUS RHYTHM : Confirmed by: Liv Donnelly MD 22-May-2020 10:07:30
[2020-05-22] MEDS: METHYLPREDNISOLONE INJ 40 MG/1 ML SDV IV SCH ×2 (11:17→21:54)
[2020-05-22] MEDS: PIPERACILLIN SODIUM/TAZOBACTAM 4.5 GM in NORMAL SALINE 100 ML IV SCH ×2 (11:17→17:52)
[2020-05-22] MEDS: FAMOTIDINE 20 MG TABLET PO SCH ×2 (11:17→21:54)
[2020-05-22] MEDS ORDERED: KETAMINE HCL INJ 500 MG/10 ML VIAL ONE ×2 (11:34→18:48)
[2020-05-22 12:30] LABS: ARTERIAL BLOOD BASE EXCESS -3.3 mmol/L; ARTERIAL BLOOD H2CO3 1.55 mmol/L (1.05-1.35); ARTERIAL BLOOD HCO3 23.9 mmol/L (20-24); ARTERIAL BLOOD O2 SATURATION 87.8 % (94-98); ARTERIAL BLOOD PCO2 51.5 mmHg (35-45); ARTERIAL BLOOD PH 7.28 (7.35-7.45); ARTERIAL BLOOD PO2 60.2 mmHg (80-100); ARTERIAL BLOOD TOTAL CO2 25.5 mmol/L (21-25)
[2020-05-22] MEDS ORDERED: ALBUTEROL SULFATE HFA (90 MCG/PUFF) 8 GM MDI IH SCH (12:30)
[2020-05-22 12:42] LABS: ARTERIAL BLOOD FIO2 50%
[2020-05-22] MEDS ORDERED: PROPOFOL 1,000 MG/100 ML INFUS..BTL IV ONE (13:43)
[2020-05-22] MEDS ORDERED: MIDAZOLAM 2 MG/2 ML INJ ONE (13:45)
[2020-05-22] MEDS ORDERED: KETAMINE HCL INJ 500 MG/10 ML VIAL IV PRN (20:21)
[2020-05-22] MEDS: ALBUTEROL SULFATE 0.083% NEB 2.5 MG/3 ML AMPUL NEB SCH (20:42)
[2020-05-23 01:35] LABS: ARTERIAL BLOOD H2CO3 1.73 mmol/L (1.05-1.35); ARTERIAL BLOOD HCO3 24.9 mmol/L (20-24); ARTERIAL BLOOD O2 SATURATION 96.9 % (94-98); ARTERIAL BLOOD PCO2 57.6 mmHg (35-45); ARTERIAL BLOOD PH 7.25 (7.35-7.45); ARTERIAL BLOOD PO2 104.7 mmHg (80-100); ARTERIAL BLOOD TOTAL CO2 26.7 mmol/L (21-25)
[2020-05-23 01:38] LABS: ARTERIAL BLOOD FIO2 4L
[2020-05-23] MEDS: ALBUTEROL SULFATE 0.083% NEB 2.5 MG/3 ML AMPUL NEB SCH ×3 (01:38→08:05)
[2020-05-23] MEDS ORDERED: ALBUTEROL SULFATE 0.083% NEB 2.5 MG/3 ML AMPUL NEB ONE (02:00)
[2020-05-23] MEDS: PIPERACILLIN SODIUM/TAZOBACTAM 4.5 GM in NORMAL SALINE 100 ML IV SCH ×3 (02:39→18:17)
[2020-05-23 04:49] LABS: ABSOLUTE LYMPHOCYTES (AUTO) 0.9 10^3/uL (0.5-4.7); ABSOLUTE MONOCYTES (AUTO) 0.5 10^3/uL (0.1-1.4); ABSOLUTE NEUT (AUTO) 11.2 10^3/uL (1.7-8.2); BASOPHILS % (AUTO) 0.1 % (0-2); HEMATOCRIT 37.5 % (36.0-47.0); HEMOGLOBIN 12.6 g/dL (12.0-15.5); LYMPHOCYTES % (AUTO) 6.9 % (13-45); MEAN CORPUSCULAR HEMOGLOBIN 31.9 pg (27.0-33.4); MEAN CORPUSCULAR HGB CONC 33.5 g/dL (32.0-36.0); MEAN CORPUSCULAR VOLUME 95 fl (80-97); PLATELET COUNT 203 10^3/uL (150-450); RED BLOOD COUNT 3.95 10^6/uL (3.72-5.28); RED CELL DISTRIBUTION WIDTH 13.6 % (11.5-14.0); TOTAL CELLS COUNTED % (AUTO) 100 %; WHITE BLOOD COUNT 12.5 10^3/uL (4.0-10.5)
[2020-05-23 05:08] LABS: ANION GAP 5 (5-19); BLOOD UREA NITROGEN 13 mg/dL (7-20); CALCIUM 9.1 mg/dL (8.4-10.2); CARBON DIOXIDE 26 mmol/L (22-30); CHLORIDE 107 mmol/L (98-107); GLUCOSE 138 mg/dL (75-110); PHOSPHORUS 3.1 mg/dL (2.5-4.5); POTASSIUM 4.7 mmol/L (3.6-5.0)
[2020-05-23] MEDS: HEPARIN SOD (PORCINE) 5,000 UNIT/ML 1 ML VIAL SUBCUT SCH ×3 (07:10→21:36)
--- NOTE | 2020-05-23 08:21 | RADIOLOGY REPORT (SQ) ---
EXAM DESCRIPTION: CHEST SINGLE VIEW IMAGES COMPLETED DATE/TIME: 05/23/2020 6:34 am REASON FOR STUDY: Respiratory Failure COMPARISON: 05/22/2020 EXAM PARAMETERS: NUMBER OF VIEWS: One view. TECHNIQUE: Single frontal radiographic view of the chest acquired. RADIATION DOSE: NA LIMITATIONS: None. FINDINGS: LUNGS AND PLEURA: No opacities, masses or pneumothorax. No pleural effusion. MEDIASTINUM AND HILAR STRUCTURES: No masses. Contour normal. HEART AND VASCULAR STRUCTURES: Heart normal in size. Normal vasculature. BONES: No acute findings. HARDWARE: Interval extubation. OTHER: No other significant finding. IMPRESSION: Extubation. No evidence of acute cardiopulmonary complication. TECHNICAL DOCUMENTATION: JOB ID: [id number] [employer]- All Rights Reserved Reading location - IP/workstation name: [email or web address]
[2020-05-23] MEDS: METHYLPREDNISOLONE INJ 40 MG/1 ML SDV IV SCH ×2 (10:00→21:36)
[2020-05-23] MEDS: FAMOTIDINE 20 MG TABLET PO SCH ×2 (10:00→21:36)
[2020-05-23] MEDS ORDERED: ACETAMINOPHEN 325 MG TABLET ONE (10:18)
[2020-05-23] MEDS: ACETAMINOPHEN 325 MG TABLET PO PRN ×2 (10:30→15:24)
[2020-05-23] MEDS ORDERED: ONDANSETRON HCL INJ/PF 4 MG/2 ML SDV IV PRN (10:43)
[2020-05-23] MEDS ORDERED: ALBUTEROL SULFATE IH SCH (10:45)
[2020-05-23] MEDS: METHIMAZOLE 5 MG TABLET PO SCH (12:31)
[2020-05-23] MEDS: ALBUTEROL SULFATE HFA (90 MCG/PUFF) 200 PUFF/8.5 GM MDI IH SCH ×3 (15:23→21:37)
--- NOTE | 2020-05-23 18:21 | PDOC CRITICAL CARE PROG REPORT ---
General Date:: 05/23/20 ICU Day:: 2 Hospital Day:: 2 Resuscitation Status: Full Code Medical Power of Major Donor Coordinator: Father Events in the past 12 to 24 Hours:: 10.23.2020: Patient admitted yesterday with acute exacerbation of asthma. Initial COVID testing was negative and repeat testing is currently underway korey oswald her presentation and the pandemic situation. She was initially placed on propofol but had difficulty with hypotension and was started on a ketamine drip. Overnight, the patient self extubated but did not require reintubation. She has remained without stridor and her breathing has improved according to the patient. Review of systems relevant to events:: 10.23.2020: Patient denies smoking. However family has alluded to the fact that she continues to smoke. She denies this as well as vaping. She currently seeing an final inspection supervisor, Dr. Barnes in the [facility] in [facility]. She sees this physician for hyperthyroidism and is on methimazole for this. Her TSH on admission was slightly elevated at 7. She does have a hoarse voice but without any airway compromise or stridor Review of patient's asthma history typically shows that she is having nocturnal symptoms more than 2 times a week. She has needed her rescue inhaler more than 3 times a week. She describes her symptoms as worsening in the last week. Reason for ICU Addmission:: Hypoxic Respiratory Failure - Medications: Medications reviewed and adjusted accordingly: Yes Vasopressors:: None Sedation:: None, ketamine and fentanyl discontinued Physical Exam Vital Signs: Temp Pulse Resp BP Pulse Ox 99.1 F 68 15 108/61 99 05/23/20 16:00 05/23/20 16:00 05/23/20 16:00 05/23/20 16:00 05/23/20 16:00 Intake & Output 05/22/20 05/23/20 05/24/20 06:59 06:59 06:59 Intake Total 3071 810 Output Total 4402 0065 Balance 2351 -630 -4609 Weight 81.6 kg 85.7 kg Weight/Height Weight 85.7 kg Height 5 ft 5 in General appearance: PRESENT: no acute distress, cooperative, well-developed, well-nourished Exam: Nontoxic older appearing 54-year-old female who appears ill but in no acute distress. She is awake but lethargic oriented x3 Head exam: PRESENT: atraumatic, normocephalic Eye exam: PRESENT: conjunctiva pink, EOMI, PERRLA. ABSENT: conjunctival injection, nystagmus, scleral icterus Mouth exam: PRESENT: moist, neck supple, tongue midline Teeth exam: ABSENT: edentulous Neck exam: ABSENT: JVD, lymphadenopathy, tenderness, thyromegaly, tracheal deviation, tracheostomy Respiratory exam: PRESENT: prolonged expiratory phas, unlabored, other - Lung sounds not auscultated secondary to the confines of PPE and poor auditory capability of disposable stethoscope. ABSENT: accessory muscle use, tachypnea Cardiovascular exam: PRESENT: RRR, other - Heart sounds not auscultated secondary to the confines of PPE and poor auditory capability of disposable stethoscope. ABSENT: bradycardia Pulses: PRESENT: +1 pedal pulses bilateral GI/Abdominal exam: PRESENT: soft, other - Gastric sounds not auscultated secondary to the confines of PPE and poor auditory capability of disposable stethoscope. ABSENT: ascites, distended, firm, guarding, organolmegaly, tenderness Rectal exam: PRESENT: deferred Gentrourinary exam: PRESENT: indwelling catheter Extremities exam: ABSENT: clubbing, pedal edema Musculoskeletal exam: ABSENT: deformity, dislocation Neurological exam: PRESENT: awake, oriented to person, oriented to place, o riented to time, oriented to situation, CN II-XII grossly intact. ABSENT: alert, motor sensory deficit, aphasic Psychiatric exam: PRESENT: flat affect Skin exam: PRESENT: dry, intact, normal color, warm. ABSENT: cyanosis, pallor, rash Tubes/Lines: PRESENT: Other - Gao type urinary catheter Laboratory/Radiographs Laboratory Results: 05/23/20 04:07 05/23/20 04:07 05/23/20 05/23/20 05/23/20 01:20 04:07 04:07 WBC 12.5 H RBC 3.95 Hgb 12.6 Hct 37.5 MCV 95 MCH 31.9 MCHC 33.5 RDW 13.6 Plt Count 203 Seg Neutrophils % 89.0 H Carbonic Acid 1.73 H HCO3/H2CO3 Ratio 14:1 ABG pH 7.25 L ABG pCO2 57.6 H ABG pO2 104.7 H ABG HCO3 24.9 H ABG O2 Saturation 96.9 ABG Base Excess -3.0 FiO2 4L Sodium 138.4 Potassium 4.7 Chloride 107 Carbon Dioxide 26 Anion Gap 5 BUN 13 Creatinine 0.50 L Est GFR ( Amer) > 60 Glucose 138 H Calcium 9.1 Phosphorus 3.1 Magnesium 1.9 05/22/20 02:33 Troponin I < 0.012 Impressions: Chest X-Ray 05/23/20 06:00 IMPRESSION: Extubation. No evidence of acute cardiopulmonary complication. All labs, radiographs, diagnostic studies and EKGs were personally reviewed: Yes In addition, reports of radiographic and diagnostic studies were read: Yes Assessment and Plan - Diagnosis (1) Acute respiratory failure with hypoxia and hypercapnia Is this a current diagnosis for this admission?: Yes (2) Lactic acidosis Is this a current diagnosis for this admission?: Yes (3) SIRS (systemic inflammatory response syndrome) Is this a current diagnosis for this admission?: Yes (4) Person under investigation for severe acute respiratory syndrome coronavirus 2 (SARS-CoV-2) infection Is this a current diagnosis for this admission?: Yes (5) Asthma with status asthmaticus in adult Qualifiers: Asthma severity: severe Asthma persistence: persistent Qualified Code(s): J45.52 - Severe persistent asthma with status asthmaticus Is this a current diagnosis for this admission?: Yes (6) Hyperthyroidism Is this a current diagnosis for this admission?: Yes Plan Summary: 05.23.2020: Patient is improving in the expected trajectory Given the report that she is continuing to smoke have ordered a urinary nicotine metabolite study to confirm. We will continue steroids and wean when appropriate. Continue to monitor for airway compromise and stridor Keep in ICU in concern for recrudescence of respiratory failure Monitor electrolytes and support as needed Patient has poor care for her asthma and reports significant exacerbations during the week and nighttime symptoms. Her asthma is persistent and moderate in acute severe exacerbation. Once her exacerbation is under control will need to place her on perfunctory asthma care in accordance with the Global initiative for asthma care guidelines established March 2020. Will need to determine whether tobacco use is present before adjudicated other medications. We will discuss patient's TSH with her final inspection supervisor. Critical Time Critical Time (minutes): 40 Level of Care: ICU Anticipated discharge: Home Anticipated DC Timeframe: within 48 hours -: 1. The care of a critical patient is a dynamic process. This note is a sales representative girls' apparel synopsis but static in nature. The timeframe for treatments g iven in order is not necessarily the actual time these treatments may have been done. 2. This patient requires critical care secondary to ongoing requirements for therapy not offered or safe outside the critical care environment. Transfer to a lower level of care will result in altered life or limb morbidity and mortality. 3. Multidisciplinary rounds completed. 4. ABCDE bundle addressed.
[2020-05-24] MEDS: ALBUTEROL SULFATE HFA (90 MCG/PUFF) 200 PUFF/8.5 GM MDI IH SCH ×6 (01:27→21:57)
[2020-05-24] MEDS: PIPERACILLIN SODIUM/TAZOBACTAM 4.5 GM in NORMAL SALINE 100 ML IV SCH ×2 (01:28→11:02)
[2020-05-24 04:40] LABS: ABSOLUTE LYMPHOCYTES (AUTO) 1.2 10^3/uL (0.5-4.7); ABSOLUTE MONOCYTES (AUTO) 0.3 10^3/uL (0.1-1.4); ABSOLUTE NEUT (AUTO) 8.9 10^3/uL (1.7-8.2); BASOPHILS % (AUTO) 0.1 % (0-2); HEMATOCRIT 35.4 % (36.0-47.0); LYMPHOCYTES % (AUTO) 11.4 % (13-45); MEAN CORPUSCULAR HEMOGLOBIN 31.7 pg (27.0-33.4); MEAN CORPUSCULAR HGB CONC 33.7 g/dL (32.0-36.0); MEAN CORPUSCULAR VOLUME 94 fl (80-97); PLATELET COUNT 186 10^3/uL (150-450); RED BLOOD COUNT 3.77 10^6/uL (3.72-5.28); RED CELL DISTRIBUTION WIDTH 13.8 % (11.5-14.0); SEGMENTED NEUTROPHILS % (AUTO) 85.5 % (42-78); TOTAL CELLS COUNTED % (AUTO) 100 %; WHITE BLOOD COUNT 10.4 10^3/uL (4.0-10.5)
[2020-05-24 05:08] LABS: ANION GAP 6 (5-19); BLOOD UREA NITROGEN 13 mg/dL (7-20); CALCIUM 9.1 mg/dL (8.4-10.2); CARBON DIOXIDE 28 mmol/L (22-30); CHLORIDE 103 mmol/L (98-107); GLUCOSE 122 mg/dL (75-110); PHOSPHORUS 2.8 mg/dL (2.5-4.5); POTASSIUM 4.3 mmol/L (3.6-5.0)
[2020-05-24] MEDS: HEPARIN SOD (PORCINE) 5,000 UNIT/ML 1 ML VIAL SUBCUT SCH ×3 (05:44→21:56)
[2020-05-24] MEDS: METHIMAZOLE 5 MG TABLET PO SCH (11:03)
[2020-05-24] MEDS: METHYLPREDNISOLONE INJ 40 MG/1 ML SDV IV SCH ×2 (11:03→21:56)
[2020-05-24] MEDS: FAMOTIDINE 20 MG TABLET PO SCH ×2 (11:03→21:56)
[2020-05-24 12:40] LABS: C-REACTIVE PROTEIN 11.9 mg/L (<10.0)
--- NOTE | 2020-05-24 15:12 | PDOC CRITICAL CARE PROG REPORT ---
General Date:: 05/24/20 ICU Day:: 3 Hospital Day:: 3 Resuscitation Status: Full Code Medical Power of Director Business Management: Father Events in the past 12 to 24 Hours:: 05.24.2020: Patient has not had an uneventful 24 hours and is more awake. No stridor. Shortness of breath has improved. She is been weaned to nasal cannula. She does complain resolved. Supportive care 05.23.2020: Patient admitted yesterday with acute exacerbation of asthma. Initial COVID testing was negative and repeat testing is currently underway given her presentation and the pandemic situation. She was initially placed on propofol but had difficulty with hypotension and was started on a ketamine drip. Overnight, the patient self extubated but did not require reintubation. She has remained without stridor and her breathing has improved according to the patient. Review of systems relevant to events:: 05.24.2020: COVID testing still pending. Patient describes pain in bilateral ribs worse with deep breath. She has had no fever or hemodynamic compromise. Oxygen is weaned. Still awaiting nicotine metabolite tests. Patient states that she sees an research chef at [facility]. She sees Dr. Carr and states that she has seen him in the last year. When I called the office to speak with him they state that she has not been there for 5 years. Her family doctor is Dr. Carlson who has been prescribing her methimazole. 05.23.2020: Patient denies smoking. However family has alluded to the fact that she continues to smoke. She denies this as well as vaping. She currently seeing an research chef, Dr. Barnes in the [facility] in [place] [facility]. She sees this physician for hyperthyroidism and is on methimazole for this. Her TSH on admission was slightly elevated at 7. She does have a hoarse voice but without any airway compromise or stridor Review of patient's asthma history typically shows that she is having nocturnal symptoms more than 2 times a week. She has needed her rescue inhaler more than 3 times a week. She describes her symptoms as worsening in the last week. Reason for ICU Addmission:: Hypoxic Respiratory Failure Physical Exam Vital Signs: Temp Pulse Resp BP Pulse Ox 98.2 F 53 L 13 149/71 H 97 05/24/20 07:13 05/24/20 07:13 05/24/20 14:00 05/24/20 13:45 05/24/20 14:00 Intake & Output 05/23/20 05/24/20 05/25/20 06:59 06:59 06:59 Intake Total 810 300 100 Output Total 1650 1925 0 Balance -840 -1625 100 Weight 85.7 kg 84.8 kg Weight/Height Weight 84.8 kg Height 5 ft 5 in General appearance: PRESENT: no acute distress, cooperative, well-developed, well-nourished Exam: Not intubated, nontoxic but ill-appearing 54-year-old female no acute distress Head exam: PRESENT: atraumatic, normocephalic Eye exam: PRESENT: conjunctiva pink, EOMI, PERRLA. ABSENT: conjunctival injection, nystagmus, scleral icterus Mouth exam: PRESENT: moist, neck supple Neck exam: ABSENT: JVD, lymphadenopathy, tenderness, thyromegaly, tracheal deviation Respiratory exam: PRESENT: unlabored, other - Lung sounds not auscultated secondary to the confines of PPE and poor auditory capability of disposable stethoscope. ABSENT: accessory muscle use, prolonged expiratory phas, tachypnea Cardiovascular exam: PRESENT: RRR - Heart sounds not auscultated secondary to the confines of PPE and poor auditory capability of disposable stethoscope, other - Heart sounds not auscultated secondary to the confines of PPE and poor auditory capability of disposable stethoscope. ABSENT: tachycardia Pulses: PRESENT: +1 pedal pulses bilateral GI/Abdominal exam: PRESENT: soft. ABSENT: ascites, firm, guarding, Andrews's sign, organolmegaly, tenderness Rectal exam: PRESENT: deferred Gentrourinary exam: ABSENT: indwelling catheter Extremities exam: ABSENT: pedal edema Musculoskeletal exam: PRESENT: tenderness - In lower ribs bilaterally. There is also mild discomfort in the hip flexors. No muscle tenderness., other - Slight pain with hip flexion. ABSENT: deformity, dislocation Psychiatric exam: PRESENT: flat affect Skin exam: PRESENT: dry, intact, warm. ABSENT: cyanosis, rash Laboratory/Radiographs Laboratory Results: 05/24/20 04:24 05/24/20 04:24 05/24/20 05/24/20 05/24/20 04:24 04:24 12:05 WBC 10.4 RBC 3.77 Hgb 12.0 Hct 35.4 L MCV 94 MCH 31.7 MCHC 33.7 RDW 13.8 Plt Count 186 Seg Neutrophils % 85.5 H Sodium 136.9 L Potassium 4.3 Chloride 103 Carbon Dioxide 28 Anion Gap 6 BUN 13 Creatinine 0.49 L Est GFR ( Amer) > 60 Glucose 122 H Calcium 9.1 Phosphorus 2.8 Magnesium 1.8 C-Reactive Protein 11.9 H Amylase 39 Lipase 45.5 05/22/20 05/24/20 02:33 12:05 Creatine Kinase 159 H Troponin I < 0.012 Impressions: Chest X-Ray 05/23/20 06:00 IMPRESSION: Extubation. No evidence of acute cardiopulmonary complication. All labs, radiographs, diagnostic studies and EKGs were personally reviewed: Yes In addition, reports of radiographic and diagnostic studies were read: Yes Assessment and Plan - Diagnosis (1) Acute respiratory failure with hypoxia and hypercapnia Is this a current diagnosis for this admission?: Yes (2) Lactic acidosis Is this a current diagnosis for this admission?: Yes (3) SIRS (systemic inflammatory response syndrome) Is this a current diagnosis for this admission?: Yes (4) Person under investigation for severe acute respiratory syndrome coronavirus 2 (SARS-CoV-2) infection Is this a current diagnosis for this admission?: Yes (5) Asthma with status asthmaticus in adult Qualifiers: Asthma severity: severe Asthma persistence: persistent Qualified Code(s): J45.52 - Severe persistent asthma with status asthmaticus Is this a current diagnosis for this admission?: Yes (6) Hyperthyroidism Is this a current diagnosis for this admission?: Yes Plan Summary: 05.24.2020: Patient continues to improve. Will decrease steroids. Decrease MDI Spoke with research chef at [facility], Dr. Carr--he did not want to offer any significant treatment plans but did suggest that the methimazole be reduced to 5 mg and to hold for 3 days. Patient should follow-up with either him or her family doctor Studies were sent to determine whether this patient is continuing to smoke. This will help treatment plans moving forward. Based on her history her asthma is uncontrolled will need appropriate therapy including smoking sensation if her test proved positive. A family member has disclosed that the patient does smoke the patient denies this. She had significant muscle discomfort in her chest hips. Inflammatory markers were sent including CK. There is mild elevation in CRP but ESR is normal. She is suitable for transfer from the ICU to floor. Will need follow-up for her asthma and her hyperthyroidism. Spoke with hospitalist team 05.23.2020: Patient is improving in the expected trajectory Given the report that she is continuing to smoke have ordered a urinary nicotine metabolite study to confirm. We will continue steroids and wean when appropriate. Continue to monitor for airway compromise and stridor Keep in ICU in concern for recrudescence of respiratory failure Monitor electrolytes and support as needed Patient has poor care for her asthma and reports significant exacerbations during the week and nighttime symptoms. Her asthma is persistent and moderate in acute severe exacerbation. Once her exacerbation is under control will need to place her on perfunctory asthma care in accordance with the Global initiative for asthma care guidelines established March 2020. Will need to determine whether tobacco use is present before adjudicated other medications. We will discuss patient's TSH with her research chef. Critical Time Critical Time (minutes): 0 - [id number]. Level of Care: TELE Anticipated discharge: Home -: 1. The care of a critical patient is a dynamic process. This note is a sales representative groceries synopsis but static in nature. The timeframe for treatments given in order is not necessarily the actual time these treatments may have been done. 2. This patient requires critical care secondary to ongoing requirements for therapy not offered or safe outside the critical care environment. Transfer to a lower level of care will result in altered life or limb morbidity and mortality. 3. Multidisciplinary rounds completed. 4. ABCDE bundle addressed.
--- NOTE | 2020-05-24 18:38 | Progress Note ---
Provider Note Provider Note: I was called to have the patient transferred from ICU to the medical floor. I accept the patient to the hospitalist service and I discussed the case in detail with Dr. Sun who provided me with a great deal of useful information regarding this case. Patient admitted for recurrent severe asthma attacks, intubated and later extubated herself, has been stable since then. COVID testing pending. History of hyperthyroidism followed by unknown medical record consultant on Tapazole which is being held for 3 days then she will get 3 mg. May consider ABPA work-up needed to be started here and finished outpatient or can be done on outpatient basis with her shampoo technician. Please change attending to my name after patient arrives on the medical floor.
[2020-05-25] MEDS: ALBUTEROL SULFATE HFA (90 MCG/PUFF) 200 PUFF/8.5 GM MDI IH SCH ×6 (02:57→21:37)
[2020-05-25 06:04] LABS: ABSOLUTE LYMPHOCYTES (AUTO) 1.6 10^3/uL (0.5-4.7); ABSOLUTE MONOCYTES (AUTO) 0.3 10^3/uL (0.1-1.4); ABSOLUTE NEUT (AUTO) 6.7 10^3/uL (1.7-8.2); BASOPHILS % (AUTO) 0.1 % (0-2); HEMATOCRIT 35.7 % (36.0-47.0); HEMOGLOBIN 12.3 g/dL (12.0-15.5); LYMPHOCYTES % (AUTO) 18.5 % (13-45); MEAN CORPUSCULAR HEMOGLOBIN 32.1 pg (27.0-33.4); MEAN CORPUSCULAR HGB CONC 34.5 g/dL (32.0-36.0); MEAN CORPUSCULAR VOLUME 93 fl (80-97); PLATELET COUNT 191 10^3/uL (150-450); RED BLOOD COUNT 3.83 10^6/uL (3.72-5.28); RED CELL DISTRIBUTION WIDTH 13.1 % (11.5-14.0); SEGMENTED NEUTROPHILS % (AUTO) 77.4 % (42-78); TOTAL CELLS COUNTED % (AUTO) 100 %; WHITE BLOOD COUNT 8.6 10^3/uL (4.0-10.5)
[2020-05-25 06:25] LABS: PHOSPHORUS 3.4 mg/dL (2.5-4.5)
[2020-05-25] MEDS: HEPARIN SOD (PORCINE) 5,000 UNIT/ML 1 ML VIAL SUBCUT SCH ×3 (07:27→21:37)
[2020-05-25] MEDS: METHYLPREDNISOLONE INJ 40 MG/1 ML SDV IV SCH ×2 (10:03→21:37)
[2020-05-25] MEDS: FAMOTIDINE 20 MG TABLET PO SCH ×2 (10:03→21:37)
--- NOTE | 2020-05-25 15:18 | PDOC PROGRESS REPORT ---
Subjective Progress Note for:: 05/25/20 Subjective:: Patient moved for severe asthma exacerbation, admitted to ICU and intubated, later self extubated and has been gradually improving since then. Patient is still wheezing on exam states there are multiple potential triggers at home. He is also under a great deal of stress and requests to be put on an antidepressant. She will need follow-up with PCP as well as pulmonology at discharge. Aspergillus antibodies and IgE levels have been drawn but are not back yet and may take quite a while to result. Explained to patient she will need PCP and or pulmonology to relay these results to her. Patient is nearing her baseline but not quite there yet. Possibly can be discharged in the next [address] Sun, patient's wildland fire fighter specialist in [place] stated she should be put back on her Tapazole 3 mg in about 2 days as her breathing improves. Reason For Visit: HYPOXIC RESPIRATORY FAILURE Physical Exam Vital Signs: Temp Pulse Resp BP Pulse Ox 97.7 F 69 16 131/75 H 96 05/25/20 10:58 05/25/20 10:58 05/25/20 10:58 05/25/20 10:58 05/25/20 10:58 Intake & Output 05/24/20 05/25/20 05/26/20 06:59 06:59 06:59 Intake Total 300 340 Output Total 1925 0 Balance -1625 340 Weight 84.8 kg 84.8 kg General appearance: PRESENT: no acute distress, well-developed, well-nourished Head exam: PRESENT: atraumatic, normocephalic Eye exam: PRESENT: conjunctiva pink Ear exam: PRESENT: normal external ear exam Mouth exam: PRESENT: moist Neck exam: ABSENT: carotid bruit, JVD, lymphadenopathy, thyromegaly Respiratory exam: PRESENT: unlabored, wheezes - Mild. ABSENT: accessory muscle use, crackles, rales, rhonchi, tachypnea Cardiovascular exam: PRESENT: RRR. ABSENT: diastolic murmur, rubs, systolic murmur Pulses: PRESENT: normal dorsalis pedis pul Vascular exam: PRESENT: normal capillary refill GI/Abdominal exam: PRESENT: normal bowel sounds, soft. ABSENT: distended, guarding, mass, organolmegaly, rebound, tenderness Rectal exam: PRESENT: deferred Extremities exam: PRESENT: full ROM. ABSENT: calf tenderness, clubbing, pedal edema Musculoskeletal exam: PRESENT: ambulatory Neurological exam: PRESENT: alert, awake, oriented to person, oriented to place, oriented to time, oriented to situation Psychiatric exam: PRESENT: anxious, normal mood Skin exam: PRESENT: dry, intact, warm Results Laboratory Results: 05/25/20 05:32 05/24/20 04:24 05/25/20 05/25/20 05:32 05:32 WBC 8.6 RBC 3.83 Hgb 12.3 Hct 35.7 L MCV 93 MCH 32.1 MCHC 34.5 RDW 13.1 Plt Count 191 Seg Neutrophils % 77.4 Phosphorus 3.4 Magnesium 1.8 05/22/20 02:33 Tracheal Aspirate Gram Stain - Final 05/22/20 02:33 Tracheal Aspirate Sputum Culture - Final NORMAL SEAN 05/22/20 05/24/20 02:33 12:05 Creatine Kinase 159 H Troponin I < 0.012 Impressions: Chest X-Ray 05/23/20 06:00 IMPRESSION: Extubation. No evidence of acute cardiopulmonary complication. Assessment and Plan - Diagnosis (1) Asthma exacerbation Qualifiers: Asthma severity: severe Asthma persistence: unspecified Qualified Code(s): J45.901 - Unspecified asthma with (acute) exacerbation Is this a current diagnosis for this admission?: Yes Plan: Admitted to ICU, intubated, self extubated soon after Gradual improvement Duo nebs, IV steroids, inhalers Aspergillus antibodies and IgE pending Needs pulmonology follow-up outpatient (2) Acute respiratory failure with hypoxia and hypercapnia Is this a current diagnosis for this admission?: Yes (3) Acute respiratory failure with hypoxia Is this a current diagnosis for this admission?: Yes (4) Hyperthyroidism Is this a current diagnosis for this admission?: Yes Plan: Dr. Sun spoke with the patient's wildland fire fighter specialist in [place] who stated the patient should be restarted on Tapazole prior to discharge (5) Anxiety Is this a current diagnosis for this admission?: Yes Plan: Started SSRI, patient must have this medication followed and titrated by PCP, patient voices agreement - Time Time Spent with patient: 15-24 minutes Medications reviewed and adjusted accordingly: Yes Anticipated Discharge Disposition: Home, Self Care Anticipated Discharge Timeframe: within 24 hours - Inpatient Certification Based on my medical assessment, after consideration of the patient's comorbidities, presenting symptoms, or acuity I expect that the services needed warrant INPATIENT care.: Yes I certify that my determination is in accordance with my understanding of Medicare's requirements for reasonable and necessary INPATIENT services [42 CFR 412.3e].: Yes Medical Necessity: Significant Comorbidiites Make Outpatient Treatment Too Risky, Need Close Monitoring Due to Risk of Patient Decompensation, Need for Nebulizer Therapy and Monitoring of Response, Risk of Complication if Not Cared For in Hospital, Risk of Diagnosis Which Will Require Inpatient Eval/Care/Monitoring
[2020-05-25] MEDS: CITALOPRAM HYDROBROMIDE 20 MG TABLET PO SCH (17:57)
[2020-05-25] MEDS: FLUTICASONE/VILANTEROL 100-25 MCG/DOSE IH SCH (17:58)
[2020-05-26] MEDS: ALBUTEROL SULFATE HFA (90 MCG/PUFF) 200 PUFF/8.5 GM MDI IH SCH ×6 (02:08→21:54)
[2020-05-26] MEDS: HEPARIN SOD (PORCINE) 5,000 UNIT/ML 1 ML VIAL SUBCUT SCH ×3 (05:48→21:53)
[2020-05-26] MEDS: FAMOTIDINE 20 MG TABLET PO SCH ×2 (10:14→21:54)
[2020-05-26] MEDS: PREDNISONE 10 MG TABLET PO SCH ×2 (10:14→17:07)
[2020-05-26] MEDS: CITALOPRAM HYDROBROMIDE 20 MG TABLET PO SCH (10:15)
[2020-05-26] MEDS: FLUTICASONE/VILANTEROL 100-25 MCG/DOSE IH SCH (10:16)
--- NOTE | 2020-05-26 10:25 | PDOC PROGRESS REPORT ---
Subjective Progress Note for:: 05/26/1928 Subjective:: Patient moved for severe asthma exacerbation, admitted to ICU and intubated, later self extubated and has been gradually improving since then. Patient is still wheezing on exam states there are multiple potential triggers at home. He is also under a great deal of stress and requests to be put on an antidepressant. She will need follow-up with PCP as well as pulmonology at discharge. Aspergillus antibodies and IgE levels have been drawn but are not back yet and may take quite a while to result. Explained to patient she will need PCP and or pulmonology to relay these results to her. Patient is nearing her baseline but not quite there yet. Possibly can be discharged in the next 1 [address] Sun, patient's nuclear equipment design engineer in [place] stated she should be put back on her Tapazole 3 mg in about 2 days as her breathing improves. 05/26/2020-patient is comfortably in the bed communicating well on oxygen supplementations. Pulse ox is 100% on 3 L cultures are negative. Patient is bradycardic heart rate in the 56. Stat EKG was requested and the heart rate is most of the time in the 50s to 70s in the previous hospital admissions. pt is not on beta-blockers. Reason For Visit: HYPOXIC RESPIRATORY FAILURE Physical Exam Vital Signs: Temp Pulse Resp BP Pulse Ox 97.8 F 56 L 18 136/61 H 100 05/26/20 07:21 05/26/20 07:21 05/26/20 07:21 05/26/20 07:21 05/26/20 07:21 Intake & Output 05/25/20 05/26/20 05/27/20 06:59 06:59 06:59 Intake Total 340 720 Output Total 0 Balance 340 720 Weight 84.8 kg 84.4 kg General appearance: PRESENT: no acute distress, well-developed Head exam: PRESENT: atraumatic Eye exam: PRESENT: PERRLA Ear exam: PRESENT: normal external ear exam Mouth exam: PRESENT: neck supple Teeth exam: PRESENT: poor dentation Neck exam: ABSENT: carotid bruit, JVD, lymphadenopathy, thyromegaly Respiratory exam: PRESENT: decreased breath sounds, wheezes Cardiovascular exam: PRESENT: bradycardia Pulses: PRESENT: normal dorsalis pedis pul GI/Abdominal exam: PRESENT: normal bowel sounds, soft. ABSENT: distended, guarding, mass, organolmegaly, rebound, tenderness Rectal exam: PRESENT: deferred Extremities exam: PRESENT: full ROM. ABSENT: calf tenderness, clubbing, pedal edema Neurological exam: PRESENT: alert, awake, oriented to person, oriented to place, oriented to time, oriented to situation, CN II-XII grossly intact. ABSENT: motor sensory deficit Psychiatric exam: PRESENT: appropriate affect, normal mood. ABSENT: homicidal ideation, suicidal ideation Results Laboratory Results: 05/25/20 05:32 05/24/20 04:24 05/22/20 05/24/20 02:33 12:05 Creatine Kinase 159 H Troponin I < 0.012 Impressions: Chest X-Ray 05/23/20 06:00 IMPRESSION: Extubation. No evidence of acute cardiopulmonary complication. Assessment and Plan - Diagnosis (1) Asthma exacerbation Qualifiers: Asthma severity: severe Asthma persistence: unspecified Qualified Code(s): J45.901 - Unspecified asthma with (acute) exacerbation Is this a current diagnosis for this admission?: Yes Plan: Admitted to ICU, intubated, self extubated soon after Gradual improvement Duo nebs, IV steroids, inhalers Aspergillus antibodies and IgE pending Needs pulmonology follow-up outpatient 05/26/2020-patient was admitted to ICU for acute respiratory failure secondary to asthma exacerbation status post intubation and self extubation she is doing well at this time. Patient is presently on 3 L of oxygen pulse ox 100%. On examination bilateral mild wheezing is present plan is to discontinue IV Solu- Medrol and started on prednisone 10 mg p.o. twice daily. Plan is to continue the present management and probably discharge home Thursday. (2) Acute respiratory failure with hypoxia and hypercapnia Is this a current diagnosis for this admission?: Yes (3) Acute respiratory failure with hypoxia Is this a current diagnosis for this admission?: Yes Plan: 05/26/2020-patient admitted with acute respiratory failure with hypoxia and hypercapnia secondary to asthma exacerbation. Status post intubation and extubation. Patient is on IV Solu-Medrol plan is to discontinue it and started on p.o. prednisone 10 mg p.o. twice daily. (4) Hyperthyroidism Is this a current diagnosis for this admission?: No Plan: Dr. Sun spoke with the patient's nuclear equipment design engineer in [place] who stated the patient should be restarted on Tapazole prior to discharge Patient is on Tapazole at home and which was restarted yesterday. (5) Bradycardia Is this a current diagnosis for this admission?: Yes Plan: 05/26/2020-patient's heart rate is 56 bradycardic. EKG was requested. Patient's heart rate is usually between 50-70 as per the previous documentations. pt is asymptomatic. - Time Anticipated Discharge Disposition: Home, Self Care Anticipated Discharge Timeframe: within 48 hours
[2020-05-26 10:36] LABS: COTININE 39.6 ng/mL (.); NICOTINE 1.1 ng/mL (.)
--- NOTE | 2020-05-26 21:06 | EKG REPORT ---
SEVERITY:- NORMAL ECG - SINUS RHYTHM ST ELEV, PROBABLE NORMAL EARLY REPOL PATTERN : Confirmed by: Liv Donnelly MD 26-May-2020 21:05:50
[2020-05-27] MEDS: ALBUTEROL SULFATE HFA (90 MCG/PUFF) 200 PUFF/8.5 GM MDI IH SCH ×3 (02:00→10:26)
[2020-05-27 05:17] LABS: ABSOLUTE LYMPHOCYTES (AUTO) 3.2 10^3/uL (0.5-4.7); ABSOLUTE MONOCYTES (AUTO) 0.7 10^3/uL (0.1-1.4); ABSOLUTE NEUT (AUTO) 6.8 10^3/uL (1.7-8.2); BASOPHILS % (AUTO) 0.1 % (0-2); EOSINOPHILS % (AUTO) 0.3 % (0-6); HEMATOCRIT 36.9 % (36.0-47.0); HEMOGLOBIN 12.5 g/dL (12.0-15.5); MEAN CORPUSCULAR HEMOGLOBIN 31.9 pg (27.0-33.4); MEAN CORPUSCULAR HGB CONC 33.8 g/dL (32.0-36.0); MEAN CORPUSCULAR VOLUME 94 fl (80-97); MONOCYTES % (AUTO) 6.9 % (3-13); PLATELET COUNT 182 10^3/uL (150-450); RED BLOOD COUNT 3.91 10^6/uL (3.72-5.28); RED CELL DISTRIBUTION WIDTH 13.2 % (11.5-14.0); SEGMENTED NEUTROPHILS % (AUTO) 62.7 % (42-78); TOTAL CELLS COUNTED % (AUTO) 100 %; WHITE BLOOD COUNT 10.8 10^3/uL (4.0-10.5)
[2020-05-27 05:36] LABS: ALBUMIN 3.6 g/dL (3.5-5.0); ALKALINE PHOSPHATASE 79 U/L (38-126); ASPARTATE AMINO TRANSFERASE 19 U/L (14-36); BILIRUBIN,TOTAL 0.6 mg/dL (0.2-1.3); BLOOD UREA NITROGEN 11 mg/dL (7-20); CALCIUM 8.8 mg/dL (8.4-10.2); GLUCOSE 89 mg/dL (75-110); POTASSIUM 3.8 mmol/L (3.6-5.0); TOTAL PROTEIN 6.5 g/dL (6.3-8.2)
[2020-05-27 05:42] LABS: ANION GAP 6 (5-19); CARBON DIOXIDE 28 mmol/L (22-30); CHLORIDE 103 mmol/L (98-107)
[2020-05-27] MEDS: HEPARIN SOD (PORCINE) 5,000 UNIT/ML 1 ML VIAL SUBCUT SCH ×3 (06:37→22:08)
[2020-05-27] MEDS ORDERED: ALBUTEROL SULFATE HFA (90 MCG/PUFF) 8 GM MDI IH PRN (09:49)
--- NOTE | 2020-05-27 09:54 | PDOC PROGRESS REPORT ---
Subjective Progress Note for:: 05/27/20 Subjective:: Patient moved for severe asthma exacerbation, admitted to ICU and intubated, later self extubated and has been gradually improving since then. Patient is still wheezing on exam states there are multiple potential triggers at home. He is also under a great deal of stress and requests to be put on an antidepressant. She will need follow-up with PCP as well as pulmonology at discharge. Aspergillus antibodies and IgE levels have been drawn but are not back yet and may take quite a while to result. Explained to patient she will need PCP and or pulmonology to relay these results to her. Patient is nearing her baseline but not quite there yet. Possibly can be discharged in the next 1 [address] Sun, patient's overlock collar setter in [place] stated she should be put back on her Tapazole 3 mg in about 2 days as her breathing improves. 05/26/2020-patient is comfortably in the bed communicating well on oxygen supplementations. Pulse ox is 100% on 3 L cultures are negative. Patient is bradycardic heart rate in the 56. Stat EKG was requested and the heart rate is most of the time in the 50s to 70s in the previous hospital admissions. pt is not on beta-blockers. 05/27/2020-patient is comfortably sleeping in the bed not on oxygen supplemen tation. Pulse ox is recorded this morning 98% on room air. On examination bilateral entry was decreased bilateral mild wheezing is present. Patient is expressing desire to stay 1 more night. Reason For Visit: HYPOXIC RESPIRATORY FAILURE Physical Exam Vital Signs: Temp Pulse Resp BP Pulse Ox 98.6 F 53 L 16 135/62 H 98 05/26/20 23:56 05/27/20 07:00 05/26/20 23:56 05/26/20 23:56 05/27/20 00:30 Intake & Output 05/26/20 05/27/20 05/28/20 06:59 06:59 06:59 Intake Total 720 1450 Balance 720 1450 Weight 84.4 kg 85.2 kg General appearance: PRESENT: no acute distress, well-developed Head exam: PRESENT: atraumatic Eye exam: PRESENT: PERRLA Mouth exam: PRESENT: moist, tongue midline Teeth exam: PRESENT: poor dentation Neck exam: ABSENT: carotid bruit, JVD, lymphadenopathy, thyromegaly Respiratory exam: PRESENT: decreased breath sounds Cardiovascular exam: PRESENT: RRR. ABSENT: diastolic murmur, rubs, systolic murmur GI/Abdominal exam: PRESENT: normal bowel sounds, soft. ABSENT: distended, guarding, mass, organolmegaly, rebound, tenderness Rectal exam: PRESENT: deferred Extremities exam: PRESENT: full ROM. ABSENT: calf tenderness, clubbing, pedal edema Neurological exam: PRESENT: alert, awake, oriented to person, oriented to place, oriented to time, oriented to situation, CN II-XII grossly intact. ABSENT: motor sensory deficit Psychiatric exam: PRESENT: appropriate affect, normal mood. ABSENT: homicidal ideation, suicidal ideation Results Laboratory Results: 05/27/20 04:55 05/27/20 04:55 05/27/20 05/27/20 04:55 04:55 WBC 10.8 H RBC 3.91 Hgb 12.5 Hct 36.9 MCV 94 MCH 31.9 MCHC 33.8 RDW 13.2 Plt Count 182 Seg Neutrophils % 62.7 Sodium 136.6 L Potassium 3.8 Chloride 103 Carbon Dioxide 28 Anion Gap 6 BUN 11 Creatinine 0.43 L Est GFR ( Amer) > 60 Glucose 89 Calcium 8.8 Magnesium 1.8 Total Bilirubin 0.6 AST 19 Alkaline Phosphatase 79 Total Protein 6.5 Albumin 3.6 05/22/20 05:08 Blood Blood Culture - Final NO GROWTH IN 5 DAYS 05/22/20 05:08 Blood Blood Culture - Final NO GROWTH IN 5 DAYS 05/22/20 05/24/20 05/26/20 02:33 12:05 10:41 Creatine Kinase 159 H Troponin I < 0.012 < 0.012 Impressions: Chest X-Ray 05/23/20 06:00 IMPRESSION: Extubation. No evidence of acute cardiopulmonary complication. Assessment and Plan - Diagnosis (1) Asthma exacerbation Qualifiers: Asthma severity: severe Asthma persistence: unspecified Qualified Code(s): J45.901 - Unspecified asthma with (acute) exacerbation Is this a current diagnosis for this admission?: Yes Plan: Admitted to ICU, intubated, self extubated soon after Gradual improvement Duo nebs, IV steroids, inhalers Aspergillus antibodies and IgE pending Needs pulmonology follow-up outpatient 05/26/2020-patient was admitted to ICU for acute respiratory failure secondary to asthma exacerbation status post intubation and self extubation she is doing well at this time. Patient is presently on 3 L of oxygen pulse ox 100%. On examination bilateral mild wheezing is present plan is to discontinue IV Solu- Medrol and started on prednisone 10 mg p.o. twice daily. Plan is to continue the present management and probably discharge home Thursday. 05/27/20-patient admitted to the hospital for asthma exacerbation status post intubation and extubation. Patient is doing well. Pulse ox is 98% on room air. On examination bilateral entry still decreased mild bilateral wheezing is present. Patient is expressing desire to stay overnight willing to go home tomorrow. Patient need to see market research consultant as an outpatient. Patient's primary care physician is Dr. Roca. (2) Acute respiratory failure with hypoxia Is this a current diagnosis for this admission?: Yes Plan: 05/26/2020-patient admitted with acute respiratory failure with hypoxia and hypercapnia secondary to asthma exacerbation. Status post intubation and extubation. Patient is on IV Solu-Medrol plan is to discontinue it and started on p.o. prednisone 10 mg p.o. twice daily. 05/27/2020-patient is presently on prednisone 10 mg p.o. twice daily. Also receiving pro-air inhaler and nebulizer treatments. Plan is to continue the present management today. (3) Hyperthyroidism Is this a current diagnosis for this admission?: No Plan: Dr. Sun spoke with the patient's overlock collar setter in [place] who stated the patient should be restarted on Tapazole prior to discharge Patient is on Tapazole at home and which was restarted yesterday. (4) Bradycardia Is this a current diagnosis for this admission?: Yes Plan: 05/26/2020-patient's heart rate is 56 bradycardic. EKG was requested. Patient's heart rate is usually between 50-70 as per the previous documentations. pt is asymptomatic. 05/27/2020-heart rate is around 50 may be secondary to hypothyroidism. - Time Anticipated Discharge Disposition: Home, Self Care Anticipated Discharge Timeframe: within 24 hours
[2020-05-27] MEDS: PREDNISONE 10 MG TABLET PO SCH ×2 (10:24→18:16)
[2020-05-27] MEDS: CITALOPRAM HYDROBROMIDE 20 MG TABLET PO SCH (10:24)
[2020-05-27] MEDS: FAMOTIDINE 20 MG TABLET PO SCH ×2 (10:25→22:07)
[2020-05-27] MEDS: METHIMAZOLE 5 MG TABLET PO SCH (10:25)
[2020-05-27] MEDS: FLUTICASONE/VILANTEROL 100-25 MCG/DOSE IH SCH (10:27)
[2020-05-27] MEDS: ALBUTEROL SULFATE HFA (90 MCG/PUFF) 200 PUFF/8.5 GM MDI IH PRN ×2 (12:00→17:45)
[2020-05-28] MEDS: HEPARIN SOD (PORCINE) 5,000 UNIT/ML 1 ML VIAL SUBCUT SCH ×3 (05:50→21:50)
[2020-05-28] MEDS: ALBUTEROL SULFATE 0.042% NEB (1.25 MG/3 ML) AMPUL NEB PRN ×3 (08:57→19:57)
[2020-05-28] MEDS: METHIMAZOLE 5 MG TABLET PO SCH (09:29)
[2020-05-28] MEDS: CITALOPRAM HYDROBROMIDE 20 MG TABLET PO SCH (09:29)
[2020-05-28] MEDS: FAMOTIDINE 20 MG TABLET PO SCH ×2 (09:29→21:49)
[2020-05-28] MEDS: PREDNISONE 10 MG TABLET PO SCH ×2 (09:29→17:18)
[2020-05-28] MEDS: FLUTICASONE/VILANTEROL 100-25 MCG/DOSE IH SCH (09:29)
--- NOTE | 2020-05-28 09:50 | PDOC PROGRESS REPORT ---
Subjective Progress Note for:: 05/28/20 Subjective:: Patient moved for severe asthma exacerbation, admitted to ICU and intubated, later self extubated and has been gradually improving since then. Patient is still wheezing on exam states there are multiple potential triggers at home. He is also under a great deal of stress and requests to be put on an antidepressant. She will need follow-up with PCP as well as pulmonology at discharge. Aspergillus antibodies and IgE levels have been drawn but are not back yet and may take quite a while to result. Explained to patient she will need PCP and or pulmonology to relay these results to her. Patient is nearing her baseline but not quite there yet. Possibly can be discharged in the next 1 [address] Sun, patient's actuarial consultant in [place] stated she should be put back on her Tapazole 3 mg in about 2 days as her breathing improves. 05/26/2020-patient is comfortably in the bed communicating well on oxygen supplementations. Pulse ox is 100% on 3 L cultures are negative. Patient is bradycardic heart rate in the 56. Stat EKG was requested and the heart rate is most of the time in the 50s to 70s in the previous hospital admissions. pt is not on beta-blockers. 05/27/2020-patient is comfortably sleeping in the bed not on oxygen supplemen tation. Pulse ox is recorded this morning 98% on room air. On examination bilateral entry was decreased bilateral mild wheezing is present. Patient is expressing desire to stay 1 more night. 05/28/2020-patient is complaining of chest tightness receiving nebulizer treatments plan is to make a scheduled nebulizer treatments. On examination bilateral air entry decreased bilateral wheezing is present. Reason For Visit: HYPOXIC RESPIRATORY FAILURE Physical Exam Vital Signs: Temp Pulse Resp BP Pulse Ox 97.7 F 56 L 16 141/71 H 97 05/28/20 07:14 05/28/20 07:14 05/28/20 07:14 05/28/20 07:14 05/28/20 07:14 Intake & Output 05/27/20 05/28/20 05/29/20 06:59 06:59 06:59 Intake Total 1450 3950 Balance 1450 3950 Weight 85.2 kg 84.2 kg General appearance: PRESENT: no acute distress, well-developed Eye exam: PRESENT: PERRLA Mouth exam: PRESENT: moist, tongue midline Teeth exam: PRESENT: poor dentation Neck exam: ABSENT: carotid bruit, JVD, lymphadenopathy, thyromegaly Respiratory exam: PRESENT: decreased breath sounds, wheezes Cardiovascular exam: PRESENT: RRR. ABSENT: diastolic murmur, rubs, systolic murmur Pulses: PRESENT: normal dorsalis pedis pul GI/Abdominal exam: PRESENT: normal bowel sounds, soft. ABSENT: distended, guarding, mass, organolmegaly, rebound, tenderness Rectal exam: PRESENT: deferred Extremities exam: PRESENT: full ROM. ABSENT: calf tenderness, clubbing, pedal edema Neurological exam: PRESENT: alert, awake, oriented to person, oriented to place, oriented to time, oriented to situation, CN II-XII grossly intact. ABSENT: motor sensory deficit Psychiatric exam: PRESENT: appropriate affect, normal mood. ABSENT: homicidal ideation, suicidal ideation Results Laboratory Results: 05/27/20 04:55 05/27/20 04:55 05/22/20 05:08 Blood Blood Culture - Final NO GROWTH IN 5 DAYS 05/22/20 05/24/20 05/26/20 02:33 12:05 10:41 Creatine Kinase 159 H Troponin I < 0.012 < 0.012 Impressions: Chest X-Ray 05/23/20 06:00 IMPRESSION: Extubation. No evidence of acute cardiopulmonary complication. Assessment and Plan - Diagnosis (1) Asthma exacerbation Qualifiers: Asthma severity: severe Asthma persistence: unspecified Qualified Code(s): J45.901 - Unspecified asthma with (acute) exacerbation Is this a current diagnosis for this admission?: Yes Plan: Admitted to ICU, intubated, self extubated soon after Gradual improvement Duo nebs, IV steroids, inhalers Aspergillus antibodies and IgE pending Needs pulmonology follow-up outpatient 05/26/2020-patient was admitted to ICU for acute respiratory failure secondary to asthma exacerbation status post intubation and self extubation she is doing well at this time. Patient is presently on 3 L of oxygen pulse ox 100%. On examination bilateral mild wheezing is present plan is to discontinue IV Solu- Medrol and started on prednisone 10 mg p.o. twice daily. Plan is to continue the present management and probably discharge home Thursday. 05/27/20-patient admitted to the hospital for asthma exacerbation status post intubation and extubation. Patient is doing well. Pulse ox is 98% on room air. On examination bilateral entry still decreased mild bilateral wheezing is present. Patient is expressing desire to stay overnight willing to go home tomorrow. Patient need to see clay roaster as an outpatient. Patient's primary care physician is Dr. Roca. 05/28/2020-patient admitted with asthma exacerbation receiving albuterol nebulizations. On examination chest bilateral entry was decreased bilateral wheezing is present. Plan is to continue the present management at this time. (2) Acute respiratory failure with hypoxia Is this a current diagnosis for this admission?: Yes Plan: 05/26/2020-patient admitted with acute respiratory failure with hypoxia and hypercapnia secondary to asthma exacerbation. Status post intubation and extubation. Patient is on IV Solu-Medrol plan is to discontinue it and started on p.o. prednisone 10 mg p.o. twice daily. 05/27/2020-patient is presently on prednisone 10 mg p.o. twice daily. Also receiving pro-air inhaler and nebulizer treatments. Plan is to continue the present management today. 05/28/2020-patient is on p.o. prednisone 10 mg twice daily, receiving albuterol nebulizations every 4 hours. On examination chest bilateral entry was decreased symmetrically and bilateral wheezing is present in all lung rojas. Plan is to continue the present management today and if the symptoms are improving there is a possibility that the patient may go home tomorrow. (3) Hyperthyroidism Is this a current diagnosis for this admission?: No Plan: Dr. Sun spoke with the patient's actuarial consultant in [place] who stated the patient should be restarted on Tapazole prior to discharge Patient is on Tapazole at home and which was restarted yesterday. (4) Bradycardia Is this a current diagnosis for this admission?: Yes Plan: 05/26/2020-patient's heart rate is 56 bradycardic. EKG was requested. Patient's heart rate is usually between 50-70 as per the previous documentations. pt is asymptomatic. 05/27/2020-heart rate is around 50 may be secondary to hypothyroidism. 05/28/2020-patient's heart rate today is 56 patient is persistently bradycardic and she is not on beta-blockers at this time. Echocardiogram today is pending. - Time Anticipated Discharge Disposition: Home, Self Care Anticipated Discharge Timeframe: within 48 hours
[2020-05-29] MEDS: HEPARIN SOD (PORCINE) 5,000 UNIT/ML 1 ML VIAL SUBCUT SCH ×2 (05:34→14:09)
[2020-05-29] MEDS: ALBUTEROL SULFATE 0.042% NEB (1.25 MG/3 ML) AMPUL NEB PRN (07:50)
[2020-05-29] MEDS: CITALOPRAM HYDROBROMIDE 20 MG TABLET PO SCH (10:00)
[2020-05-29] MEDS: PREDNISONE 10 MG TABLET PO SCH ×2 (10:00→17:12)
[2020-05-29] MEDS: METHIMAZOLE 5 MG TABLET PO SCH (10:00)
[2020-05-29] MEDS: FLUTICASONE/VILANTEROL 100-25 MCG/DOSE IH SCH (10:02)
[2020-05-29] MEDS: ACETAMINOPHEN 325 MG TABLET PO PRN (10:05)
[2020-05-29] MEDS: FAMOTIDINE 20 MG TABLET PO SCH (12:33)
--- NOTE | 2020-05-29 16:50 | PDOC DISCHARGE SUMMARY ---
Impression - Admit/DC Date/PCP Admission Date/Primary Care Provider: 05/22/20 03:23 Discharge Date: 05/29/20 - Discharge Diagnosis (1) Asthma exacerbation Is this a current diagnosis for this admission?: Yes (2) Acute respiratory failure with hypoxia and hypercapnia Is this a current diagnosis for this admission?: Yes (3) Acute respiratory failure with hypoxia Is this a current diagnosis for this admission?: Yes (4) Hyperthyroidism Is this a current diagnosis for this admission?: No (5) Anxiety Is this a current diagnosis for this admission?: Yes - Additional Information Resuscitation Status: Full Code Discharge Activity: Activity As Tolerated, Balance Activity w/Rest Referrals: [facility] [Outside] Prescriptions: Fluticasone/Vilanterol [Breo 100-25 Mcg Ellipta 14 Dose/Dpi] 1 inh IH DAILY #1 inhaler Citalopram Hydrobromide [Celexa 20 mg Tablet] 10 mg PO DAILY #15 tablet Prednisone [Deltasone 10 mg Tablet] 10 mg PO ASDIR PRN 4 Days #3 tablet PRN Reason: Famotidine [Pepcid 20 mg Tablet] 20 mg PO Q12 #60 tablet Albuterol Sulfate [Proair HFA Inhalation Aerosol 8.5 gm MDI] 2 puff IH Q6HP PRN #1 PRN Reason: Shortness Of Breath Methimazole [Tapazole 5 mg Tablet] 5 mg PO DAILY #30 tablet Albuterol Sulfate [Ventolin 0.083% Neb 2.5 mg/3 mL Ampul] 2.5 mg NEB Q6HP PRN #25 vial.neb PRN Reason: Shortness Of Breath Home Medications: Albuterol Sulfate [Proair HFA Inhalation Aerosol 8.5 gm MDI] 2 puff IH Q6HP PRN #1 05/29/20 Albuterol Sulfate [Ventolin 0.083% Neb 2.5 mg/3 mL Ampul] 2.5 mg NEB Q6HP PRN #25 vial.neb 05/29/20 Citalopram Hydrobromide [Celexa 20 mg Tablet] 10 mg PO DAILY #15 tablet 05/29/20 Famotidine [Pepcid 20 mg Tablet] 20 mg PO Q12 #60 tablet 05/29/20 Fluticasone/Vilanterol [Breo 100-25 Mcg Ellipta 14 Dose/Dpi] 1 inh IH DAILY #1 inhaler 05/29/20 Methimazole [Tapazole 5 mg Tablet] 5 mg PO DAILY #30 tablet 05/29/20 Prednisone [Deltasone 10 mg Tablet] 10 mg PO ASDIR PRN 4 Days #3 tablet 05/29/20 History of Present Illiness History of Present Illness: Per Admitting Physician: "Ms. Knott is a 54-year-old female with a past medical history of asthma, presented to the ED with respiratory failure. Patient activated EMS for shortness of breath and when they arrived on scene patient was having herself a nebulizer. EMS then gave patient 2 duo nebs and patient severely decompensated became cyanotic and hypoxic. Upon arrival to the ED the patient was saturating 39% on nonrebreather. She was bagged with BVM and was able to achieve sats of high 90s. Patient was successfully intubated. Post intubation VBG revealed pH of 7.04 PCO2 of 91.4. She has a mild leukocytosis with a white count of 14.9 she is hypothermic with a temp 94. Lactic acid was 4.4 she was given 2 L normal saline bolus repeat lactic acid 0.5. EKG revealed ST depressions troponin less than 0.012 ST depressions most likely from hypoxia. I saw the patient in the ER given concerns of sepsis I ordered Zosyn and one-time dose of vancomycin blood cultures were ordered prior to antibiotics being given. She is admitted to the ICU for further management" Hospital Course Hospital Course: Patient in for severe acute asthma exacerbation likely triggered by secondhand smoke exposure and exposure to drywall dust. Patient initially admitted to ICU and intubated, later self extubated. Given course of antibiotics which were completed. Cultures no growth to date. Steroids tapered from IV to oral and will continue for 4 days at discharge with a taper. Started on Breo. Needs follow-up with PCP, log feeder, artistic director, and psychiatrist. Started on SSRI for severe anxiety which is also exacerbating asthma intermittently. Patient understands she will need PCP and psychiatrist to monitor this medication and make adjustments as necessary. Lungs essentially clear at discharge, discharged home. (1) Asthma exacerbation Qualifiers: Asthma severity: severe Asthma persistence: unspecified Qualified Code(s): J45.901 - Unspecified asthma with (acute) exacerbation Is this a current diagnosis for this admission?: Yes Plan: Admitted to ICU, intubated, self extubated soon after Gradual improvement Duo nebs, IV steroids, inhalers Aspergillus antibodies and IgE pending Needs pulmonology follow-up outpatient 05/26/2020-patient was admitted to ICU for acute respiratory failure secondary to asthma exacerbation status post intubation and self extubation she is doing well at this time. Patient is presently on 3 L of oxygen pulse ox 100%. On examination bilateral mild wheezing is present plan is to discontinue IV Solu- Medrol and started on prednisone 10 mg p.o. twice daily. Plan is to continue the present management and probably discharge home Thursday. 05/27/20-patient admitted to the hospital for asthma exacerbation status post intubation and extubation. Patient is doing well. Pulse ox is 98% on room air. On examination bilateral entry still decreased mild bilateral wheezing is present. Patient is expressing desire to stay overnight willing to go home tomorrow. Patient need to see log feeder as an outpatient. Patient's primary care physician is Dr. Roca. 05/28/2020-patient admitted with asthma exacerbation receiving albuterol nebulizations. On examination chest bilateral entry was decreased bilateral wheezing is present. Plan is to continue the present management at this time. (2) Acute respiratory failure with hypoxia Is this a current diagnosis for this admission?: Yes Plan: 05/26/2020-patient admitted with acute respiratory failure with hypoxia and hypercapnia secondary to asthma exacerbation. Status post intubation and extubation. Patient is on IV Solu-Medrol plan is to discontinue it and started on p.o. prednisone 10 mg p.o. twice daily. 05/27/2020-patient is presently on prednisone 10 mg p.o. twice daily. Also receiving pro-air inhaler and nebulizer treatments. Plan is to continue the present management today. 05/28/2020-patient is on p.o. prednisone 10 mg twice daily, receiving albuterol nebulizations every 4 hours. On examination chest bilateral entry was decreased symmetrically and bilateral wheezing is present in all lung rojas. Plan is to continue the present management today and if the symptoms are improving there is a possibility that the patient may go home tomorrow. (3) Hyperthyroidism Is this a current diagnosis for this admission?: No Plan: Dr. Sun spoke with the patient's artistic director in [place] who stated the patient should be restarted on Tapazole prior to discharge Patient is on Tapazole at home and which was restarted (4) Bradycardia Is this a current diagnosis for this admission?: Yes Plan: 05/26/2020-patient's heart rate is 56 bradycardic. EKG was requested. Patient's heart rate is usually between 50-70 as per the previous documentations. pt is asymptomatic. 05/27/2020-heart rate is around 50 may be secondary to hypothyroidism. 05/28/2020-patient's heart rate today is 56 patient is persistently bradycardic and she is not on beta-blockers at this time. Echocardiogram today is pending. Physical Exam Vital Signs: Temp Pulse Resp BP Pulse Ox 97.8 F 57 L 16 112/67 97 05/29/20 07:34 05/29/20 14:00 05/29/20 07:51 05/29/20 07:34 05/29/20 07:51 Intake & Output 05/28/20 05/29/20 05/30/20 06:59 06:59 06:59 Intake Total 3950 720 120 Balance 3950 720 120 Weight 84.2 kg 82.2 kg General appearance: PRESENT: no acute distress, well-developed, well-nourished Eye exam: PRESENT: conjunctiva pink, EOMI, PERRLA. ABSENT: scleral icterus Mouth exam: PRESENT: moist Respiratory exam: PRESENT: clear to auscultation julian. ABSENT: rales, rhonchi, wheezes Cardiovascular exam: PRESENT: RRR. ABSENT: diastolic murmur, rubs, systolic murmur GI/Abdominal exam: PRESENT: normal bowel sounds, soft. ABSENT: distended, guarding, mass, organolmegaly, rebound, tenderness Musculoskeletal exam: PRESENT: ambulatory Neurological exam: PRESENT: alert, awake, oriented to person, oriented to place, oriented to time, oriented to situation Psychiatric exam: PRESENT: appropriate affect, normal mood Skin exam: PRESENT: dry, intact, warm Results Laboratory Results: WBC 10.8 10^3/uL (4.0-10.5) H 05/27/20 04:55 RBC 3.91 10^6/uL (3.72-5.28) 05/27/20 04:55 Hgb 12.5 g/dL (12.0-15.5) 05/27/20 04:55 Hct 36.9 % (36.0-47.0) 05/27/20 04:55 MCV 94 fl (80-97) 05/27/20 04:55 MCH 31.9 pg (27.0-33.4) 05/27/20 04:55 MCHC 33.8 g/dL (32.0-36.0) 05/27/20 04:55 RDW 13.2 % (11.5-14.0) 05/27/20 04:55 Plt Count 182 10^3/uL (150-450) 05/27/20 04:55 Lymph % (Auto) 30.0 % (13-45) 05/27/20 04:55 [place] % (Auto) 6.9 % (3-13) 05/27/20 04:55 Eos % (Auto) 0.3 % (0-6) 05/27/20 04:55 Baso % (Auto) 0.1 % (0-2) 05/27/20 04:55 Absolute Neuts (auto) 6.8 10^3/uL (1.7-8.2) 05/27/20 04:55 Absolute Lymphs (auto) 3.2 10^3/uL (0.5-4.7) 05/27/20 04:55 Absolute Monos (auto) 0.7 10^3/uL (0.1-1.4) 05/27/20 04:55 Absolute Eos (auto) 0.0 10^3/uL (0.0-0.6) 05/27/20 04:55 Absolute Basos (auto) 0.0 10^3/uL (0.0-0.2) 05/27/20 04:55 Total Counted 100 05/22/20 02:33 Seg Neutrophils % 62.7 % (42-78) 05/27/20 04:55 Seg Neuts % (Manual) 24 % (42-78) L 05/22/20 02:33 Lymphocytes % (Manual) 58 % (13-45) H 05/22/20 02:33 Atypical Lymphs % 10 % (0) 05/22/20 02:33 Monocytes % (Manual) 7 % (3-13) 05/22/20 02:33 Eosinophils % (Manual) 1 % (0-6) 05/22/20 02:33 Basophils % (Manual) 0 % (0-2) 05/22/20 02:33 Abs Neuts (Manual) 3.6 10^3/uL (1.7-8.2) 05/22/20 02:33 Abs Lymphs (Manual) 10.1 10^3/uL (0.5-4.7) H 05/22/20 02:33 Abs Monocytes (Manual) 1.0 10^3/uL (0.1-1.4) 05/22/20 02:33 Absolute Eos (Manual) 0.1 10^3/uL (0.0-0.6) 05/22/20 02:33 Abs Basophils (Manual) 0.0 10^3/uL (0.0-0.2) 05/22/20 02:33 Toxic Granulation SLIGHT 05/22/20 02:33 Platelet Comment ADEQUATE 05/22/20 02:33 Macrocytosis SLIGHT 05/22/20 02:33 Tear Drop Cells SLIGHT 05/22/20 02:33 ESR 23 mm/hr (0-30) 05/24/20 12:05 D-Dimer < 0.27 ug/mL (0.00-0.50) 05/22/20 02:33 Carbonic Acid 1.73 mmol/L (1.05-1.35) H 05/23/20 01:20 HCO3/H2CO3 Ratio 14:1 05/23/20 01:20 ABG pH 7.25 (7.35-7.45) L 05/23/20 01:20 ABG pCO2 57.6 mmHg (35-45) H 05/23/20 01:20 ABG pO2 104.7 mmHg (80-100) H 05/23/20 01:20 ABG HCO3 24.9 mmol/L (20-24) H 05/23/20 01:20 ABG Total CO2 26.7 mmol/L (21-25) H 05/23/20 01:20 ABG O2 Saturation 96.9 % (94-98) 05/23/20 01:20 ABG Base Excess -3.0 mmol/L 05/23/20 01:20 VBG pH 7.04 (7.30-7.42) L* 05/22/20 03:29 VBG pCO2 91.4 mmHg (35-63) H* 05/22/20 03:29 VBG HCO3 23.9 mmol/L (20-32) 05/22/20 03:29 VBG Base Excess -8.6 mmol/L 05/22/20 03:29 FiO2 4L 05/23/20 01:20 Sodium 136.6 mmol/L (137-145) L 05/27/20 04:55 Potassium 3.8 mmol/L (3.6-5.0) 05/27/20 04:55 Chloride 103 mmol/L (98-107) 05/27/20 04:55 Carbon Dioxide 28 mmol/L (22-30) 05/27/20 04:55 Anion Gap 6 (5-19) 05/27/20 04:55 BUN 11 mg/dL (7-20) 05/27/20 04:55 Creatinine 0.43 mg/dL (0.52-1.25) L 05/27/20 04:55 Est GFR ( Amer) > 60 (>60) 05/27/20 04:55 Est GFR (MDRD) Non-Af > 60 (>60) 05/27/20 04:55 Glucose 89 mg/dL (75-110) 05/27/20 04:55 POC Glucose 201 mg/dL (70-110) H 05/22/20 02:18 Lactic Acid < 0.5 mmol/L (0.7-2.1) L 05/22/20 05:55 Calcium 8.8 mg/dL (8.4-10.2) 05/27/20 04:55 Phosphorus 3.4 mg/dL (2.5-4.5) 05/25/20 05:32 Magnesium 1.8 mg/dL (1.6-2.3) 05/27/20 04:55 Ferritin 62.50 ng/mL (11.1-264.0) 05/22/20 02:33 Total Bilirubin 0.6 mg/dL (0.2-1.3) 05/27/20 04:55 Direct Bilirubin 0.0 mg/dL (0.0-0.4) 05/27/20 04:55 Neonat Total Bilirubin Not Reportable 05/27/20 04:55 Neonat Direct Bilirubin Not Reportable 05/27/20 04:55 Neonat Indirect Bili Not Reportable 05/27/20 04:55 AST 19 U/L (14-36) 05/27/20 04:55 ALT 13 U/L (<35) 05/27/20 04:55 Alkaline Phosphatase 79 U/L (38-126) 05/27/20 04:55 Creatine Kinase 159 U/L (30-135) H 05/24/20 12:05 Troponin I < 0.012 ng/mL 05/26/20 10:41 C-Reactive Protein 11.9 mg/L (<10.0) H 05/24/20 12:05 Total Protein 6.5 g/dL (6.3-8.2) 05/27/20 04:55 Albumin 3.6 g/dL (3.5-5.0) 05/27/20 04:55 Triglycerides 38 mg/dL (<150) 05/22/20 14:47 Amylase 39 U/L (30-110) 05/24/20 12:05 Lipase 45.5 U/L (23-300) 05/24/20 12:05 Interleukin 6 10.2 pg/mL (0.0-12.2) 05/22/20 02:33 Procalcitonin 0.04 ng/mL (0.00-0.08) 05/22/20 02:33 TSH 7.67 uIU/mL (0.47-4.68) H 05/22/20 02:33 Free T4 0.76 ng/dL (0.78-2.19) L 05/22/20 02:33 Free T3 pg/mL 3.72 pg/mL (2.77-5.27) 05/22/20 02:33 Random Cortisol 18.50 ug/dL (None Established) 05/22/20 02:33 Urine Color YELLOW 05/22/20 02:33 Urine Appearance SLIGHTLY-CLOUDY 05/22/20 02:33 Urine pH 5.0 (5.0-9.0) 05/22/20 02:33 Ur Specific Max 1.011 05/22/20 02:33 Urine Protein >=500 mg/dL (NEGATIVE) H 05/22/20 02:33 Urine Glucose (UA) 50 mg/dL (NEGATIVE) H 05/22/20 02:33 Urine Ketones NEGATIVE mg/dL (NEGATIVE) 05/22/20 02:33 Urine Blood SMALL (NEGATIVE) H 05/22/20 02:33 Urine Nitrite NEGATIVE (NEGATIVE) 05/22/20 02:33 Urine Bilirubin NEGATIVE (NEGATIVE) 05/22/20 02:33 Urine Urobilinogen NEGATIVE mg/dL (<2.0) 05/22/20 02:33 Ur Leukocyte Esterase NEGATIVE (NEGATIVE) 05/22/20 02:33 Urine WBC (Auto) 4 /HPF 05/22/20 02:33 Urine RBC (Auto) 1 /HPF 05/22/20 02:33 U Hyaline Cast (Auto) 1 /LPF 05/22/20 02:33 Urine Bacteria (Auto) TRACE /HPF 05/22/20 02:33 Squamous Epi Cells Auto 1 /HPF 05/22/20 02:33 Urine Mucus (Auto) RARE /LPF 05/22/20 02:33 Urine Ascorbic Acid NEGATIVE (NEGATIVE) 05/22/20 02:33 Nicotine 1.1 ng/mL (.) 05/23/20 04:07 Cotinine 39.6 ng/mL (.) 05/23/20 04:07 Urine Opiates Screen NEGATIVE 05/22/20 02:33 Urine Methadone Screen NEGATIVE 05/22/20 02:33 Ur Barbiturates Screen NEGATIVE 05/22/20 02:33 Ur Phencyclidine Scrn NEGATIVE 05/22/20 02:33 Ur Amphetamines Screen NEGATIVE 05/22/20 02:33 U Benzodiazepines Scrn NEGATIVE 05/22/20 02:33 Urine Cocaine Screen NEGATIVE 05/22/20 02:33 U Marijuana (THC) Screen NEGATIVE 05/22/20 02:33 Serum Alcohol < 10 mg/dL (NONE DETECTED) 05/22/20 02:33 IgE 34 IU/mL (6-495) 05/24/20 12:05 COVID-19 Source NASOPHARYNGEAL 05/22/20 12:20 COVID-19 ([place]) NOT DETECTED 05/22/20 12:20 SARS-CoV-2 (PCR) NEGATIVE (NEGATIVE) 05/22/20 04:56 05/22/20 05/26/20 02:33 10:41 Troponin I < 0.012 < 0.012 Impressions: Chest X-Ray 05/22/20 02:20 IMPRESSION: Satisfactory placement of supportive appliances.. Chest X-Ray 05/23/20 06:00 IMPRESSION: Extubation. No evidence of acute cardiopulmonary complication. Plan Time Spent: Greater than 30 Minutes Stroke Is this a Stroke Patient?: No Acute Heart Failure - Is this a Heart Failure Patient?: No
[2020-05-29 16:57] VITALS: BP 116/64
[2020-05-29 21:36] LABS: ASPERGILLUS FUMIGATUS Negative (Neg:<1:1)
[2020-05-30 07:06] LABS: ASPERGILLUS NIGER Negative (Neg:<1:1)
== END 2020-05-29 18:22 | disposition home or self-care (01) | DRG 208 ==
LOC: ER 02:10 → EH 03:23 → ICU 07:02 → 3N 05-24 15:45 → 4N 05-24 20:23
PROVIDERS: ADMIT Internal Medicine; ATTEND Internal Medicine
PROC: 0BH17EZ Insertion of Endotracheal Airway into Trachea, Via Natural or Artificial Opening (ICD-10-PCS; principal; 2020-05-22)
PROC: 5A1945Z Respiratory Ventilation, 24-96 Consecutive Hours (ICD-10-PCS; 2020-05-22)
DX: J96.01 Acute respiratory failure with hypoxia (principal); J45.52 Severe persistent asthma with status asthmaticus; J45.901 Unspecified asthma with (acute) exacerbation; E87.2 Acidosis; J96.02 Acute respiratory failure with hypercapnia; E05.90 Thyrotoxicosis, unspecified without thyrotoxic crisis or storm; F41.9 Anxiety disorder, unspecified; R00.1 Bradycardia, unspecified; Z20.828 Contact with and (suspected) exposure to other viral communicable diseases
CPT/HCPCS: 36415; 71045; 80048; 80053; 80307; 80323; 81001; 82150; 82533; 82550; 82728; 82785; 82803; 82962; 83520; 83605; 83690; 83735; 84100; 84145; 84439; 84443; 84478; 84481; 84484; 85025; 85379; 85652; 86140; 86606; 87040; 87070; 87205; 87635; 93005; 93010; 94002; 94003; 94640; 96374; 99221; 99291; C9803; G0480; J0330; J1644; J2250; J2405; J2543; J2704; J2920; J2930; J3010; J3370; J3490; J7030; J7050; J7512

== ENCOUNTER 2020-05-30 13:04 | Emergency (ER) | payer SELFPAY ==
--- NOTE | 2020-05-30 14:27 | ER Document Report ---
ED Medical Screen (RME) - General Chief Complaint: Skin Problem Stated Complaint: LEFT ARM PAIN/NUMBNESS Time Seen by Provider: 05/30/20 14:24 Mode of Arrival: Ambulatory Information source: Patient Notes: 54-year-old female presented to ED for complaint of redness swelling and pain to her left arm. She states she was released from the hospital yesterday and she is losing sensation to the left arm now as well as swelling and pain up to the shoulder. She denies any respiratory distress. She was admitted for respiratory distress and was intubated. She states she was told by the dischar ge nurse that if the pain and swelling continued to please return to the ED and have this arm evaluated. That is why she is returning today. I have greeted and performed a rapid initial assessment of this patient. A comprehensive ED assessment and evaluation of the patient, analysis of test results and completion of medical decision making process will be conducted by an additional ED providers. TRAVEL OUTSIDE OF THE [place] IN LAST 30 DAYS: No - Related Data Allergies/Adverse Reactions: No Known Allergies Allergy (Verified 10/07/19 21:39) Past Medical History - Past Medical History Cardiac Medical History: Reports: Hx Hypertension Denies: Hx Atrial Fibrillation, Hx Congestive Heart Failure, Hx Coronary Artery Disease, Hx DVT, Hx Heart Attack, Hx Hypercholesterolemia, Hx Peripheral Vascular Disease, Hx Pulmonary Embolism Pulmonary Medical History: Reports: Hx Asthma, Hx Bronchitis, Hx Pneumonia, Hx Intubation, Hx Respiratory Failure Denies: Hx COPD, Hx Tuberculosis Neurological Medical History: Denies: Hx Seizures Endocrine Medical History: Reports: Hx Hyperthyroidism. Denies: Hx Diabetes Mellitus Type 1, Hx Diabetes Mellitus Type 2, Hx Hypothyroidism Renal/ Medical History: Denies: Hx Peritoneal Dialysis GI Medical History: Denies: Hx Cirrhosis, Hx Crohn's Disease, Hx Gastroesophageal Reflux Disease, Hx Hepatitis, Hx Ulcerative Colitis Musculoskeltal Medical History: Denies Hx Arthritis, Denies Hx Gout Skin Medical History: Denies Hx Eczema, Denies Hx Psoriasis Psychiatric Medical History: Denies: Hx Depression Infectious Medical History: Denies: Hx Hepatitis Past Surgical History: Reports: Hx Abdominal Surgery - UMBILICAL HERNIA REPAIR, Hx Herniorrhaphy - Umbilical herniorrhaphy, Hx Umbilical Hernia - Immunizations Immunizations up to date: Yes Hx Diphtheria, Pertussis, Tetanus Vaccination: Yes Physical Exam - Vital signs Vitals: Temp Pulse Resp BP Pulse Ox 98.6 F 70 16 142/62 H 97 05/30/20 13:14 05/30/20 13:14 05/30/20 13:14 05/30/20 13:14 05/30/20 13:14 Course - Vital Signs Vital signs: Temp Pulse Resp BP Pulse Ox 98.6 F 70 16 142/62 H 97 05/30/20 13:14 05/30/20 13:14 05/30/20 13:14 05/30/20 13:14 05/30/20 13:14
[2020-05-30 15:33] LABS: ABSOLUTE EOSINOPHILS # (AUTO) 0.1 10^3/uL (0.0-0.6); ABSOLUTE LYMPHOCYTES (AUTO) 3.5 10^3/uL (0.5-4.7); ABSOLUTE MONOCYTES (AUTO) 0.7 10^3/uL (0.1-1.4); ABSOLUTE NEUT (AUTO) 5.7 10^3/uL (1.7-8.2); BASOPHILS % (AUTO) 0.1 % (0-2); EOSINOPHILS % (AUTO) 0.9 % (0-6); HEMATOCRIT 41.3 % (36.0-47.0); LYMPHOCYTES % (AUTO) 35.4 % (13-45); MEAN CORPUSCULAR HEMOGLOBIN 31.9 pg (27.0-33.4); MEAN CORPUSCULAR HGB CONC 33.8 g/dL (32.0-36.0); MEAN CORPUSCULAR VOLUME 95 fl (80-97); MONOCYTES % (AUTO) 6.6 % (3-13); PLATELET COUNT 190 10^3/uL (150-450); RED BLOOD COUNT 4.37 10^6/uL (3.72-5.28); TOTAL CELLS COUNTED % (AUTO) 100 %; WHITE BLOOD COUNT 9.9 10^3/uL (4.0-10.5)
[2020-05-30 15:39] LABS: ALBUMIN 4.4 g/dL (3.5-5.0); ALKALINE PHOSPHATASE 108 U/L (38-126); ANION GAP 7 (5-19); ASPARTATE AMINO TRANSFERASE 60 U/L (14-36); BILIRUBIN,TOTAL 0.6 mg/dL (0.2-1.3); BLOOD UREA NITROGEN 10 mg/dL (7-20); CALCIUM 9.2 mg/dL (8.4-10.2); CARBON DIOXIDE 29 mmol/L (22-30); CHLORIDE 100 mmol/L (98-107); GLUCOSE 92 mg/dL (75-110); POTASSIUM 3.8 mmol/L (3.6-5.0); TOTAL PROTEIN 7.4 g/dL (6.3-8.2)
--- NOTE | 2020-05-30 19:00 | RADIOLOGY REPORT (SQ) ---
EXAM DESCRIPTION: VENOUS UNILATERAL UPPER IMAGES COMPLETED DATE/TIME: 05/30/2020 6:53 pm REASON FOR STUDY: Discharged yesterday red swollen painful arm COMPARISON: None. TECHNIQUE: Dynamic and static malagon scale and color images acquired of the left arm venous system. Se lected spectral images acquired with additional compression and augmentation maneuvers. The contralat eral subclavian vein and internal jugular vein were also imaged. Images stored on PACS. LIMITATIONS: None. FINDINGS: INTERNAL JUGULAR VEIN: Normal phasicity, compression, augmentation. No visualized echogeni c material on malagon scale. No defects on color images. Comparison opposite side normal. SUBCLAVIAN VEIN: Normal compression, augmentation. No visualized echogenic material on malagon scale. No defects on color images. AXILLARY VEIN: Normal compression, augmentation. No visualized echogenic material on malagon scale. No d efects on color images. BRACHIAL VEIN: Normal compression, augmentation. No visualized echogenic material on malagon scale. No d efects on color images. BASILIC VEIN: Normal compression, augmentation. No visualized echogenic material on malagon scale. No de fects on color images. CEPHALIC VEIN: Acute thrombus in the distal cephalic vein. OTHER: No other significant finding. CONTRALATERAL SUBCLAVIAN VEIN AND INTERNAL JUGULAR VEIN: Normal phasicity, compression and augmentation. No visualized echogenic material on malagon scale. No de fects on color images. IMPRESSION: Acute SVT in the distal cephalic vein. No other significant findings. TECHNICAL DOCUMENTATION: JOB ID: [id number] 2010 [employer]- All Rights Reserved Reading location - IP/workstation name: [email or web address]
--- NOTE | 2020-05-30 20:14 | ER Document Report ---
Entered by LEYDA COFFMAN SCRIBE 05/30/201933 Acting as scribe for:CARLOS BERUMEN DO ED General - General Chief Complaint: Skin Problem Stated Complaint: LEFT ARM PAIN/NUMBNESS Time Seen by Provider: 05/30/20 14:24 Primary Care Provider: LISA ROCA DO [Primary Care Provider] - Follow up as needed Mode of Arrival: Ambulatory Information source: Patient Notes: This 54 year old female patient presents to the ED today complaints of increased pain, swelling, and erythema to her left forearm. Patient states that she was admitted to the ICU here on 05/22 for severe asthma exacerbation and was intubated. She was discharged yesterday and was advised to come back to the ED if the pain and swelling increased. She is now reporting numbness and tingling from her forearm to her upper arm. She states that she was prescribed steroids, but she wasn't able to pick them up yet. No SOB. Dr. Roca is her PCP. TRAVEL OUTSIDE OF THE [place] IN LAST 30 DAYS: No - Related Data Allergies/Adverse Reactions: No Known Allergies Allergy (Verified 10/07/19 21:39) Past Medical History - General Information source: Patient - Social History Smoking Status: Unknown if Ever Smoked Smoking Education Provided: No Family History: Reviewed & Not Pertinent, Hypertension, Other - asthma Patient has suicidal ideation: No Patient has homicidal ideation: No - Past Medical History Cardiac Medical History: Reports: Hx Hypertension Pulmonary Medical History: Reports: Hx Asthma, Hx Bronchitis, Hx Pneumonia, Hx Intubation, Hx Respiratory Failure Endocrine Medical History: Reports: Hx Hyperthyroidism Past Surgical History: Reports: Hx Umbilical Hernia - Immunizations Immunizations up to date: Yes Hx Diphtheria, Pertussis, Tetanus Vaccination: Yes Hx Pneumococcal Vaccination: 03/25/14 Review of Systems - Review of Systems Constitutional: No symptoms reported EENT: No symptoms reported Cardiovascular: No symptoms reported Respiratory: See HPI. denies: Short of breath Gastrointestinal: No symptoms reported Genitourinary: No symptoms reported Female Genitourinary: No symptoms reported Musculoskeletal: See HPI Skin: No symptoms reported Hematologic/Lymphatic: No symptoms reported Neurological/Psychological: See HPI, Numbness, Tingling -: Yes All other systems reviewed and negative Physical Exam - Vital signs Vitals: Temp Pulse Resp BP Pulse Ox 98.6 F 70 16 142/62 H 97 05/30/20 13:14 05/30/20 13:14 05/30/20 13:14 05/30/20 13:14 05/30/20 13:14 - General General appearance: Alert In distress: None - HEENT Head: Normocephalic, Atraumatic Eyes: Normal Extraocular movements intact: Yes Pupils: PERRL - Respiratory Respiratory status: No respiratory distress Chest status: Nontender Breath sounds: Normal Chest palpation: Normal - Cardiovascular Rhythm: Regular Heart sounds: Normal auscultation Murmur: No Friction rub: No Gallop: None auscultated - Abdominal Inspection: Normal Distension: No distension Bowel sounds: Normal Tenderness: Nontender - Abdomen soft Organomegaly: No organomegaly - Back Back: Normal, Nontender - Extremities General upper extremity: No: Normal color - Ecchymosis noted to left upper arm General lower extremity: Normal inspection Elbow: Ecchymosis Forearm: Other - Erythema, base of left distal forearm Wrist: Ecchymosis - Neurological Neuro grossly intact: Yes Orientation: AAOx4 Aimee Coma Scale Eye Opening: Spontaneous [place] Coma Scale Verbal: Oriented [place] Coma Scale Motor: Obeys Commands Aimee Coma Scale Total: 15 - Psychological Associated symptoms: Normal affect, Normal mood - Skin Skin irregularity: Erythema - Base of left distal forearm, not quite circumferential, other - Ecchymosis noted near right elbow, base or right wrist, and in the right antecubital region. Ecchymosis and firmness noted to left antecubital region. 3-4 cm area of ecchymosis noted to upper arm Course - Re-evaluation Re-evalutation: 05/31/20 00:47 MDM 54 year old female arrives with several areas of ecchymosis from prvious iv stick after very recent hospitalization here. Additionally redness and some warmth and pain in left arm consistent with phlebitis/ thrombophlebitis. With a + clot even though superficial she has moderate symptoms here now so after discussion with the pt a decision to start xarelto was made. Also keflex was added due to concern of possible mild infection. She understands the need for follow up and we discussed reasons for return. She has been unable to fill rx from dc here so prednisone was administered here. - Vital Signs Vital signs: Temp Pulse Resp BP Pulse Ox 98.0 F 98 17 115/88 H 93 05/30/20 20:58 05/30/20 20:58 05/30/20 20:58 05/30/20 20:58 05/30/20 20:58 - Laboratory Result Diagrams: 05/30/20 15:05 05/30/20 15:05 Laboratory results interpreted by me: 05/30/20 15:05 Sodium 136.3 L Creatinine 0.51 L AST 60 H ALT 47 H - Diagnostic Test Radiology reviewed: Reports reviewed Discharge - Discharge Clinical Impression: Thrombophlebitis arm Condition: Stable Disposition: HOME, SELF-CARE Instructions: Superficial Phlebitis ([facility]) Additional Instructions: Rest, elevated the left arm and apply a warm compress. Take your medicine as directed. Please return here for chest pain, shortness of breath, other problems or other concerns. She Dr. Roca or us in follow up in 2 days - on Thursday this week. Prescriptions: Fluconazole [Diflucan] 150 mg PO DAILY #2 tablet Cephalexin Monohydrate [Keflex 500 mg Capsule] 500 mg PO TID #30 capsule Rivaroxaban [Xarelto 10 mg Tablet] 10 mg PO DAILY #30 tablet Referrals: LISA ROCA DO [Primary Care Provider] - Follow up as needed I personally performed the services described in the documentation, reviewed and edited the documentation which was dictated to the scribe in my presence, and it accurately records my words and actions.
[2020-05-30] MEDS ORDERED: PREDNISONE 10 MG TABLET PO ONE (20:26)
[2020-05-30] MEDS ORDERED: HYDROCODONE/ACETAMINOPHEN 5-325 MG (6 TAB/ER DISP) PO PRN (20:31)
[2020-05-30 20:59] VITALS: BP 115/88
== END 2020-05-30 21:15 | disposition home or self-care (01) ==
LOC: ER 13:04
DX: I80.8 Phlebitis and thrombophlebitis of other sites (principal); M79.632 Pain in left forearm; R20.0 Anesthesia of skin; R20.2 Paresthesia of skin; I10 Essential (primary) hypertension; J45.909 Unspecified asthma, uncomplicated
CPT/HCPCS: 99284; 36415; 87040; 85025; 80053; 93971; J7512